=== PATIENT | female | born 2000 | race Caucasian/White ===

== ENCOUNTER 2020-01-30 17:15 | Emergency (ER) | payer OTHER, SELFPAY ==
[2020-01-30 17:29] VITALS: BP 121/65; PULSE 102; RESP 16; TEMP 38.1; O2SAT 99
[2020-01-30 18:09] VITALS: BP 103/62; PULSE 98; RESP 18; O2SAT 98
--- NOTE | 2020-01-30 18:11 | PC.NURSE ---
Pt states she has had abd pain, nausea, vomiting, cough and PURDY x 3 days. Pt is A&Ox4. Pt abd soft, tender and non distended. Pt BSx4. Pt appears in NAD.
--- NOTE | 2020-01-30 18:58 | ED.NAVMDI ---
HPI - Nausea/Vomiting/Diarrhea General Chief complaint: Nausea/Vomiting/Diarrhea Stated complaint: n/v Time Seen by Provider: 01/30/20 17:38 Source: patient Mode of arrival: ambulatory Limitations: no limitations History of Present Illness HPI Narrative: Patient presents with chief complaint of 2 days of cough, congestion, sore throat and a few episodes of vomiting and diarrhea for 2 days. Patient denies having any abdominal pain. Patient denies any blood or mucus in her vomit. Patient denies any other symptoms or concerns. Patient states she is allergic to a smell to beer. Patient states that she did receive a flu shot this year. Patient denies any recent travel out of the country in the past 2 weeks. Patient denies any known exposure to anyone with coronavirus. Related Data Home Medications Medication Instructions Recorded Confirmed cariprazine [Vraylar] mg 01/30/20 Allergies Allergy/AdvReac Type Severity Reaction Status Date / Time oseltamivir Allergy Mild Unknown Verified 01/30/20 17:15 sulfamethoxazole Allergy Mild Unknown Verified 01/30/20 17:15 trimethoprim Allergy Mild Unknown Verified 01/30/20 17:15 sulfamethizole Allergy Unknown possibly Verified 01/30/20 17:15 Review of Systems Review of Systems: Narrative: CONSTITUTIONAL: Reports fever, chills, or sweats. EYES: Denies visual changes, redness, or discharge. ENT: Reports rhinorrhea, congestion, sore throat, or otalgia. CARDIOVASCULAR: Denies chest pain, palpitations, or edema. RESPIRATORY: Reports cough denies dyspnea. GASTROINTESTINAL: Denies abdominal pain, reports nausea, vomiting, and diarrhea. GENITOURINARY: Denies dysuria or hematuria. SKIN: Denies rash or itching. MUSCULOSKELETAL: Denies back pain, joint pain, or myalgia. NEUROLOGIC: Denies headache, numbness, dizziness, or weakness. PSYCHIATRIC: Denies anxiety or depression. PMFSH Social History Social History Smoking status: Never smoker Alcohol intake: never Substance use: never Additional occupation/education comments: Daycare worker Gender identity (if verbalized by the patient): Female Exam Narrative: Exam Narrative: GENERAL: Well-appearing, well-nourished, and in no acute distress. HEAD: Normocephalic, atraumatic. EYES: PERRLA and EOMI. ENT: Nares clear, no rhinorrhea or epistaxis. Mucous membranes moist. Oropharynx without tonsillar hypertrophy exudate or other lesions. Bilateral TMs pearly gracia nonbulging NECK: Supple. No adenopathy or masses. No carotid bruits or JVD CHEST: Clear to auscultation. No respiratory distress. No wheezes rales or rhonchi HEART: Regular rate and rhythm. ABDOMEN: Soft, nontender, nondistended, normal active bowel sounds. EXTREMITIES: Normal range of motion. No edema. SKIN: Warm, dry, no rash. NEURO: No focal deficits. Alert and oriented x3. PSYCH: Normal mood and affect. Course Vital Signs Vital signs: Vital Signs Temperature 100.6 F H 01/30/20 17:29 Pulse Rate 102 H 01/30/20 17:29 Respiratory Rate 16 01/30/20 17:29 Blood Pressure 121/65 01/30/20 17:29 Pulse Oximetry 99 01/30/20 17:29 Temperature 100.6 F H 01/30/20 17:29 Pulse Rate 98 01/30/20 18:09 Respiratory Rate 18 01/30/20 18:09 Blood Pressure 103/62 01/30/20 18:09 Pulse Oximetry 98 01/30/20 18:09 MDM - Nausea/Vomiting/Diarrhea MDM Narrative Medical decision making narrative: Patient tested positive for influenza B. She is not toxic. She is allergic to tamiflu.Declines xofluza. Discussed symptomatic treatment. and protocol to reduce spread. Patient verbalized understanding agreement of plan and denies any other questions or concerns. Differential Diagnosis Differential diagnosis: Likely traveler's diarrhea, gastroenteritis, drug-induced nausea and vomiting, dehydration and other (Influenza, strep pharyngitis, rhinovirus, coronavirus) Lab Data Labs: Influenza A Screen Nega
[2020-01-30 19:31] VITALS: BP 101/75; PULSE 101; RESP 18; O2SAT 99
== END 2020-01-30 19:33 | disposition home or self-care (01) ==
PROVIDERS: Emergency Provider Emergency Medicine; PCP Family Medicine
DX: J10.1 Influenza due to other identified influenza virus with other respiratory manifestations (principal)
CPT/HCPCS: 87081; 87804; 87880; 99283

== ENCOUNTER 2021-11-09 16:47 | Emergency (ER) | payer OTHER, SELFPAY ==
--- NOTE | ~2021-11-09 | US_ITS ---
EXAMINATION: US OB limited DATE: 11/09/2021 17:43 INDICATION: Vaginal bleeding during second trimester TECHNIQUE: Real-time ultrasound of the pelvis was performed. The interpreting radiologist was not pre sent for the study. COMPARISON: None. FINDINGS: There is a single living fetus in vertex presentation. The placenta is anterior. No evident subchori onic hematoma. heart rate is 144 beats per minute (bpm). The amniotic fluid volume is subjectiv soraya normal. IMPRESSION: 1. Single living fetus in vertex presentation with heart rate of 144 bpm. 2. Normal anterior placenta. Reviewed, dictated and finalized at location [facility] IMPRESSION: 1. Single living fetus in vertex presentation with heart rate of 144 bpm . 2. Normal anterior placenta.
[2021-11-09 16:49] VITALS: BP 125/73; PULSE 83; RESP 18; TEMP 36.6; O2SAT 100
--- NOTE | 2021-11-09 17:45 | ED.FEMALEGU ---
HPI - Female Genitourinary General Chief complaint: Vaginal Bleeding Stated complaint: vag bleeding with Time Seen by Provider: 11/09/21 16:59 History of Present Illness HPI Narrative: Patient is a 21-year-old female who is a G1, P0 who is approximately 17 weeks gestation who presents ER with vaginal bleeding. Began 1 hour prior to arrival. Bright red. Soaked through 1-1/2 pads. Unable to feel movement due to gestation age. Has not had any complications thus far. Reports mild abdominal cramping. Related Data Home Medications Medication Instructions Recorded Confirmed cariprazine [Vraylar] mg 01/30/20 Allergies Allergy/AdvReac Type Severity Reaction Status Date / Time oseltamivir Allergy Mild Unknown Verified 11/09/21 17:17 sulfamethoxazole Allergy Mild Unknown Verified 11/09/21 17:17 trimethoprim Allergy Mild Unknown Verified 11/09/21 17:17 sulfamethizole Allergy Unknown possibly Verified 11/09/21 17:17 Review of Systems Review of Systems: All systems reviewed & are unremarkable except as noted in HPI and below Cardiovascular: Cardiovascular: Denies chest pain, Denies rapid heart rate and Denies radiating jaw, neck or arm pain Respiratory: Respiratory: Denies cough, Denies dyspnea and Denies wheezing Gastrointestinal: Gastrointestinal: Reports abdominal pain, Denies diarrhea, Denies nausea and Denies vomiting Genitourinary: Genitourinary: Reports abnormal vaginal bleeding, Denies dysuria, Denies flank pain and Denies vaginal discharge Comments: Denies leakage of fluid Musculoskeletal: Musculoskeletal: Denies back pain, Denies arthralgias and Denies joint swelling [facility] Past Medical History Medical History (Updated 11/09/21 @ 19:36 by Ananth Guerrero MD) Allergic rhinitis Anxiety Bipolar affect, depressed IUD (intrauterine device) in place Sciatica of right side Surgical History Surgical History No history of previous surgery Family History Family History Other Family history of suicide Social History Social History Smoking status: Never smoker Alcohol intake: never Substance use: never Additional occupation/education comments: Daycare worker Gender identity (if verbalized by the patient): Female Exam Narrative: GENERAL: Anxious and tearful-appearing, well-nourished, and in no acute distress. HEAD: Normocephalic, atraumatic. CHEST: Clear to auscultation. No respiratory distress. HEART: Regular rate and rhythm. Normal peripheral pulses. ABDOMEN: Soft, nontender, nondistended. Fundus palpated just below the umbilicus. : Normal external genitalia. Vagina free of significant discharge or any evidence of bleeding. Cervix closed and nonerythematous. No CMT. EXTREMITIES: Normal range of motion. No edema. SKIN: Warm, dry, no rash. NEURO: Alert and oriented x3. PSYCH: Normal mood and affect. Properly anxious. Course Course Emergency Course: Discussed case with Dr. Castillo. Recommends patient contact clinic tomorrow and schedule close follow-up. Patient does not require RhoGam. Discharge home. Vital Signs Vital signs: Vital Signs Temperature 97.8 F 11/09/21 16:49 Pulse Rate 83 11/09/21 16:49 Respiratory Rate 18 11/09/21 16:49 Blood Pressure 125/73 11/09/21 16:49 Pulse Oximetry 100 11/09/21 16:49 Temperature 97.8 F 11/09/21 16:49 Pulse Rate 83 11/09/21 16:49 Respiratory Rate 18 11/09/21 16:49 Blood Pressure 125/73 11/09/21 16:49 Pulse Oximetry 100 11/09/21 16:49 MDM - Female Genitourinary Lab Data Result diagrams: 11/09/21 17:30 11/09/21 17:30 Labs: Lab Results 11/09/21 11/09/21 11/09/21 Range/Units 17:30 17:30 17:30 WBC 10.8 H (4.5-10.0) K/mm3 RBC 4.31 (4.2-5.4) M/mm3 Hgb 13.4 (12.0-15.0) g/dL Hc
[2021-11-09 17:53] LABS: Basophils Percent Auto 0.2 % (0.2-1.2); Eosinophils Absolute Auto 0.1 K/mm3 (0-0.3); Hematocrit 38.6 % (37.0-47.0); Hemoglobin 13.4 g/dL (12.0-15.0); Immature Granulocyte Absolute 0.04 K/mm3 (0.00-0.031); Immature Granulocyte Percent A 0.4 % (0-0.5); Lymphocytes Absolute Auto 1.93 K/mm3 (0.9-3.2); Mean Corpuscular HGB Conc 34.7 g/dl (32-36); Mean Corpuscular Hemoglobin 31.1 pg (26-34); Mean Corpuscular Volume 89.6 fl (80-100); Mean Platelet Volume 9.6 fl (7.4-10.4); Monocytes Absolute Auto 0.7 K/mm3 (0.1-0.6); Monocytes Percent Auto 6.9 % (2.6-8.5); Neutrophils Absolute Auto 7.9 K/mm3 (1.3-6.7); Neutrophils Percent Auto 73.5 % (45.5-73.1); Platelet Count Result 299 k/mm3 (150-375); Red Blood Count 4.31 M/mm3 (4.2-5.4); White Blood Count 10.8 K/mm3 (4.5-10.0)
[2021-11-09 18:07] LABS: Anion Gap 8 mmol/L (8-16); Blood Urea Nitrogen 4 mg/dL (7-17); Calcium 9.2 mg/dL (8.4-10.2); Carbon Dioxide 23 mmol/L (22-30); Chloride 104 mmol/L (98-107); Estimated Glomerular Filt Rate > 60; Glucose 89 mg/dL (65-110); Potassium 3.1 mmol/L (3.4-5.0); Sodium 135 mmol/L (137-145)
[2021-11-09 19:45] VITALS: BP 121/82; PULSE 91; RESP 15; O2SAT 99
== END 2021-11-09 19:45 | disposition home or self-care (01) ==
PROVIDERS: Emergency Provider Emergency Medicine; PCP Family Medicine
DX: O20.9 Hemorrhage in early pregnancy, unspecified (principal); O99.342 Other mental disorders complicating pregnancy, second trimester; F31.9 Bipolar disorder, unspecified; F41.9 Anxiety disorder, unspecified; Z3A.17 17 weeks gestation of pregnancy
CPT/HCPCS: 36415; 76815; 80048; 85025; 85461; 99284

== ENCOUNTER 2022-01-19 03:57 | Observation (INO) | payer OTHER, SELFPAY ==
[2022-01-19 04:16] VITALS: BP 127/67; PULSE 79
--- NOTE | 2022-01-19 04:32 | PC.NURSE ---
0427- called Dr. Castillo- informed of pt admission. pt came in c/o severe upper abdominal pain that started this morning after standing up out of bed. she stated that it felt like her stomach dropped. pt states that she has an anterior placenta and has been on pelvic rest since 20 weeks. no vaginal bleeding, no other concerns. orders received. will obtain labs and call with results.
[2022-01-19] MEDS: ACETAMINOPHEN 500 MG TABLET 1000 MG PO (04:41)
[2022-01-19] MEDS: FAMOTIDINE 20 MG TABLET PO (04:42)
[2022-01-19 04:56] VITALS: TEMP 36.9
--- NOTE | 2022-01-19 04:57 | LDADM ---
This patient, Baljinder Cardoza, was admitted to OB Post 116 on 01/19/22 at 03:57. Plans for labor, pain management and were discussed with patient. Patient/family oriented to hospital policies and general routines including ID bracelet, bed and alarms, visiting hours, pain management, procedures, bathroom and other care routines, personal items, smoking policy, room service/diet and guest tray routines, infant security routines, and visiting hours. Patient/Family are encouraged to report perceived risks to care and to ask questions if they do not understand what they are told or what they should do. See OBIX for further documentation.
[2022-01-19 05:06] LABS: Basophils Percent Auto 0.2 % (0.2-1.2); Eosinophils Absolute Auto 0.1 K/mm3 (0-0.3); Eosinophils Percent Auto 0.6 % (0-4.4); Hematocrit 35.1 % (37.0-47.0); Hemoglobin 11.5 g/dL (12.0-15.0); Immature Granulocyte Percent A 0.7 % (0-0.5); Lymphocytes Absolute Auto 1.43 K/mm3 (0.9-3.2); Lymphocytes Percent Auto 9.7 % (18.3-44.2); Mean Corpuscular HGB Conc 32.8 g/dl (32-36); Mean Corpuscular Hemoglobin 29.9 pg (26-34); Mean Corpuscular Volume 91.4 fl (80-100); Mean Platelet Volume 9.2 fl (7.4-10.4); Monocytes Absolute Auto 0.9 K/mm3 (0.1-0.6); Monocytes Percent Auto 6.1 % (2.6-8.5); Neutrophils Absolute Auto 12.1 K/mm3 (1.3-6.7); Neutrophils Percent Auto 82.7 % (45.5-73.1); Platelet Count Result 298 k/mm3 (150-375); Red Blood Count 3.84 M/mm3 (4.2-5.4); Red Cell Distribution Width 13.4 % (11.5-14.5); White Blood Count 14.7 K/mm3 (4.5-10.0)
[2022-01-19 05:27] LABS: Alanine Aminotransferase 17 U/L (4-35); Albumin Level 3.4 g/dL (3.5-5.1); Alkaline Phosphatase 114 U/L (38-126); Anion Gap 7 mmol/L (8-16); Aspartate Amino Transferase 32 U/L (14-36); Bilirubin,Total 0.4 mg/dL (0.2-1.3); Blood Urea Nitrogen 6 mg/dL (7-17); Calcium 8.7 mg/dL (8.4-10.2); Carbon Dioxide 22 mmol/L (22-30); Chloride 107 mmol/L (98-107); Estimated Glomerular Filt Rate > 60; Glucose 111 mg/dL (65-110); Potassium 3.1 mmol/L (3.4-5.0); Sodium 136 mmol/L (137-145)
--- NOTE | 2022-01-19 05:46 | PC.NURSE ---
0543-Dr. Castillo called in- labs reviewed. pt states that her pain is better at a 4/10 now. order received to d/c pt home with instructions on when to return to labor and delivery. pt has office visit next week and is to keep that appt but to call to make appt sooner if concerns.
--- NOTE | 2022-01-24 21:07 | P.PNOB_ITS ---
OB - Triage/Final Diagnosis Visit Information Comments/Additional reasons for admission: I have assessed the risk for this patient, Baljinder Cardoza, and determined that she would benefit from observation care. Evaluation Laboratory results: Laboratory Tests 01/19/22 01/19/22 04:31 05:00 WBC 14.7 H RBC 3.84 L Hgb 11.5 L Hct 35.1 L MCV 91.4 MCH 29.9 MCHC 32.8 RDW 13.4 Plt Count 298 MPV 9.2 Immature Gran % (Auto) 0.7 H Neut % (Auto) 82.7 H Lymph % (Auto) 9.7 L [place] % (Auto) 6.1 Eos % (Auto) 0.6 Baso % (Auto) 0.2 Lymph # (Auto) 1.43 [place] # (Auto) 0.9 H Eos # (Auto) 0.1 Baso # (Auto) 0.0 Abs Immat Gran (auto) 0.10 H Absolute Neuts (auto) 12.1 H Absolute Nucleated RBC 0.0 Nucleated RBC % 0.0 Sodium 136 L Potassium 3.1 L Chloride 107 Carbon Dioxide 22 Anion Gap 7 L BUN 6 L Creatinine 0.40 L Estim Creat Clear Calc Not Reportable Estimated GFR > 60 Glucose 111 H Calcium 8.7 Total Bilirubin 0.4 AST 32 ALT 17 Alkaline Phosphatase 114 Total Protein 6.0 L Albumin 3.4 L Final Diagnosis (1) Abdominal pain affecting : Code(s): O26.899 - Other specified related conditions, unspecified trimester; R10.9 - Unspecified abdominal pain Status: Acute
== END 2022-01-19 06:11 | disposition home or self-care (01) ==
PROVIDERS: Admitting Provider Obstetrics & Gynecology; PCP Family Medicine; Visit Provider Obstetrics & Gynecology
DX: O26.892 Other specified pregnancy related conditions, second trimester (principal); R10.9 Unspecified abdominal pain; Z3A.26 26 weeks gestation of pregnancy
CPT/HCPCS: 36415; 80053; 85025; A9270; G0378; G0379

== ENCOUNTER 2022-03-13 18:17 | Observation (INO) | payer OTHER, SELFPAY ==
[2022-03-13 18:35] VITALS: BP 136/63; PULSE 100
[2022-03-13] MEDS: DEXTROSE 5%/LACTATED RINGERS 1,000 ML 999 ML IV CONT (18:42)
[2022-03-13 18:46] VITALS: BP 124/80; PULSE 94
[2022-03-13 19:01] VITALS: BP 128/87; PULSE 97
[2022-03-13] MEDS: DEXTROSE 5%/LACTATED RINGERS 1,000 ML 200 ML IV CONT (19:19)
[2022-03-13] MEDS: ONDANSETRON INJ 4 MG/2 ML VIAL IV PUSH ×2 (19:25→21:12)
[2022-03-13] MEDS: METOCLOPRAMIDE HCL INJ 10 MG/2 ML VIAL 5 MG IV PUSH (21:12)
--- NOTE | 2022-03-21 21:11 | PM.OBTRLD ---
OB - Triage/Final Diagnosis Visit Information Comments/Additional reasons for admission: I have assessed the risk for this patient, Baljinder Cardoza, and determined that she would benefit from observation care. Final Diagnosis (1) Nausea & vomiting: Code(s): R11.2 - Nausea with vomiting, unspecified Status: Acute
== END 2022-03-13 22:15 | disposition home or self-care (01) ==
PROVIDERS: Admitting Provider Obstetrics & Gynecology; PCP Family Medicine; Visit Provider Obstetrics & Gynecology
DX: O21.9 Vomiting of pregnancy, unspecified (principal); Z3A.34 34 weeks gestation of pregnancy
CPT/HCPCS: 96361; 96374; 96375; 96376; G0378; G0379; J2405; J2765; J7121

== ENCOUNTER 2022-04-02 17:10 | Observation (INO) | payer OTHER, SELFPAY ==
--- NOTE | 2022-04-02 17:10 | OBADM ---
This patient, Baljinder Cardoza, admitted to the OB room Labor/Delivery/Recovery 106 for observation. Patient/family oriented to hospital policies and general routines including ID bracelet, bed and alarms, visiting hours, pain management, procedures, bathroom and other care routines, personal items, smoking policy, room service/diet, and visiting hours. Patient/Family are encouraged to report perceived risks to care and to ask questions if they do not understand what they are told or what they should do.
[2022-04-02 18:53] VITALS: BMI 38.5
--- NOTE | 2022-04-28 21:26 | PM.OBTRLD ---
OB - Triage/Final Diagnosis Visit Information Comments/Additional reasons for admission: I have assessed the risk for this patient, Baljinder Cardoza, and determined that she would benefit from observation care. Final Diagnosis (1) Amniotic fluid leaking: Code(s): O42.90 - Premature rupture of membranes, unspecified as to length of time between rupture and onset of labor, unspecified weeks of gestation Status: Acute
== END 2022-04-02 18:50 | disposition home or self-care (01) ==
PROVIDERS: Admitting Provider Obstetrics & Gynecology; PCP Family Medicine; Visit Provider Obstetrics & Gynecology
DX: O42.92 Full-term premature rupture of membranes, unspecified as to length of time between rupture and onset of labor (principal); Z3A.37 37 weeks gestation of pregnancy
CPT/HCPCS: G0378; G0379

== ENCOUNTER 2022-04-04 15:17 | Outpatient (CLI) | payer OTHER, SELFPAY ==
[2022-04-04 17:43] VITALS: BP 129/76; PULSE 89
== END 2022-04-04 16:10 | disposition home or self-care (01) ==
LOC: ANHOBOP 16:02 → ANHLDR 16:17
PROVIDERS: PCP Family Medicine; Visit Provider Advanced Practice Midwife
DX: O42.92 Full-term premature rupture of membranes, unspecified as to length of time between rupture and onset of labor (principal); Z3A.37 37 weeks gestation of pregnancy
CPT/HCPCS: 59025; 84112; 99199

== ENCOUNTER 2022-04-07 07:34 | Observation (INO) | payer OTHER, SELFPAY ==
--- NOTE | 2022-04-07 10:05 | OBADM ---
This patient, Baljinder Cardoza, admitted to the OB room Labor/Delivery/Recovery 104 for observation. Patient/family oriented to hospital policies and general routines including ID bracelet, bed and alarms, visiting hours, pain management, procedures, bathroom and other care routines, personal items, smoking policy, room service/diet, and visiting hours. Patient/Family are encouraged to report perceived risks to care and to ask questions if they do not understand what they are told or what they should do.
--- NOTE | 2022-04-10 18:35 | PM.OBTRLD ---
OB - Triage/Final Diagnosis Visit Information Reason for evaluation: threatened labor Comments/Additional reasons for admission: I have assessed the risk for this patient, Baljinder Cardoza, and determined that she would benefit from observation care.
== END 2022-04-07 09:50 | disposition home or self-care (01) ==
PROVIDERS: Admitting Provider Obstetrics & Gynecology; PCP Family Medicine; Visit Provider Obstetrics & Gynecology
DX: O47.9 False labor, unspecified (principal); Z3A.00 Weeks of gestation of pregnancy not specified
CPT/HCPCS: 84112; G0378; G0379

== ENCOUNTER 2022-04-08 09:47 | Outpatient (CLI) | payer OTHER, SELFPAY ==
[2022-04-08] VITALS (7 sets, daily range): BP systolic 99–115; BP diastolic 53–69; PULSE 94–115; TEMP 36.4
[2022-04-08 10:15] LABS: Basophils Percent Auto 0.2 % (0.2-1.2); Eosinophils Absolute Auto 0.1 K/mm3 (0-0.3); Eosinophils Percent Auto 0.5 % (0-4.4); Hematocrit 36.3 % (37.0-47.0); Hemoglobin 11.8 g/dL (12.0-15.0); Immature Granulocyte Absolute 0.07 K/mm3 (0.00-0.031); Immature Granulocyte Percent A 0.5 % (0-0.5); Mean Corpuscular HGB Conc 32.5 g/dl (32-36); Mean Corpuscular Hemoglobin 28.2 pg (26-34); Mean Corpuscular Volume 86.6 fl (80-100); Mean Platelet Volume 9.6 fl (7.4-10.4); Monocytes Absolute Auto 0.8 K/mm3 (0.1-0.6); Monocytes Percent Auto 6.4 % (2.6-8.5); Neutrophils Absolute Auto 10.8 K/mm3 (1.3-6.7); Neutrophils Percent Auto 82.4 % (45.5-73.1); Platelet Count Result 311 k/mm3 (150-375); Red Blood Count 4.19 M/mm3 (4.2-5.4); Red Cell Distribution Width 14.2 % (11.5-14.5)
[2022-04-08 10:32] LABS: Alanine Aminotransferase 13 U/L (6-35); Albumin Level 3.2 g/dL (3.5-5.1); Alkaline Phosphatase 173 U/L (38-126); Anion Gap 9 mmol/L (8-16); Aspartate Amino Transferase 19 U/L (14-36); Bilirubin,Total 0.3 mg/dL (0.2-1.3); Blood Urea Nitrogen 5 mg/dL (7-17); Calcium 8.8 mg/dL (8.4-10.2); Carbon Dioxide 20 mmol/L (22-30); Chloride 111 mmol/L (98-107); Estimated Glomerular Filt Rate > 60; Glucose 101 mg/dL (65-110); Potassium 3.6 mmol/L (3.4-5.0); Sodium 140 mmol/L (137-145); Uric Acid 3.8 mg/dL (2.5-7.5)
[2022-04-08 10:53] LABS: Add Urine Microscopic? YES; Appearance Urine Clear (Clear); Bacteria Urine Trace /hpf; Bilirubin Urine Negative (Negative); Blood Urine Negative (Negative); Color Urine Yellow (Yellow); Glucose Urine UA Negative (Negative); Ketones Urine Negative (Negative); Leukocyte Esterase Ur Trace LEU/UL (NEGATIVE); Mucus Urine Few /lpf; Nitrate Urine Negative (Negative); Protein Urine Negative (Negative); RBC Urine 0-2 /hpf (0-2); Specific Grav Ur 1.025 (1.001-1.035); Squamous Epithelial Cell Urine Moderate /hpf (Few); Urobilinogen Urine 0.2 mg/dL (<2.0); WBC Urine 0-3 /hpf (0-3); pH Urine 6.5 (5.0-9.0)
[2022-04-08 11:02] LABS: Creatinine Urine 141.7 mg/dL
[2022-04-08 18:46] LABS: Total Protein Urine Random 10 mg/dL; Ur Ttl Prot Creatinine Ratio 0.07 mg/mg (0-0.20)
== END 2022-04-08 11:20 | disposition home or self-care (01) ==
LOC: ANHOBOP 09:51 → ANHOBPP 04-13 06:14
PROVIDERS: Advanced Practice Midwife; PCP Family Medicine; Visit Provider Obstetrics & Gynecology
DX: O13.9 Gestational [pregnancy-induced] hypertension without significant proteinuria, unspecified trimester (principal); Z3A.00 Weeks of gestation of pregnancy not specified
CPT/HCPCS: 36415; 59025; 80053; 81001; 82570; 84156; 84550; 85025; 87086; 99199

== ENCOUNTER 2022-04-10 18:43 | Outpatient (CLI) | payer OTHER, SELFPAY ==
[2022-04-10] VITALS (8 sets, daily range): BP systolic 128–145; BP diastolic 76–97; PULSE 97–114
[2022-04-10 19:24] LABS: Basophils Percent Auto 0.2 % (0.2-1.2); Eosinophils Absolute Auto 0.1 K/mm3 (0-0.3); Eosinophils Percent Auto 0.8 % (0-4.4); Hematocrit 36.3 % (37.0-47.0); Hemoglobin 11.7 g/dL (12.0-15.0); Immature Granulocyte Absolute 0.07 K/mm3 (0.00-0.031); Immature Granulocyte Percent A 0.6 % (0-0.5); Lymphocytes Absolute Auto 1.61 K/mm3 (0.9-3.2); Lymphocytes Percent Auto 14.5 % (18.3-44.2); Mean Corpuscular HGB Conc 32.2 g/dl (32-36); Mean Corpuscular Hemoglobin 27.9 pg (26-34); Mean Corpuscular Volume 86.4 fl (80-100); Mean Platelet Volume 9.7 fl (7.4-10.4); Monocytes Absolute Auto 0.9 K/mm3 (0.1-0.6); Monocytes Percent Auto 8.4 % (2.6-8.5); Neutrophils Absolute Auto 8.4 K/mm3 (1.3-6.7); Neutrophils Percent Auto 75.5 % (45.5-73.1); Platelet Count Result 351 k/mm3 (150-375); Red Cell Distribution Width 14.1 % (11.5-14.5); White Blood Count 11.1 K/mm3 (4.5-10.0)
[2022-04-10 19:28] LABS: Appearance Urine Cloudy (Clear); Bilirubin Urine 1+ (Negative); Blood Urine Negative (Negative); Color Urine Yellow (Yellow); Glucose Urine UA Negative (Negative); Ketones Urine Trace mg/dL (Negative); Leukocyte Esterase Ur Trace LEU/UL (NEGATIVE); Nitrate Urine Negative (Negative); Protein Urine 1+ mg/dL (Negative); Specific Grav Ur >= 1.030 (1.001-1.035); pH Urine 6.5 (5.0-9.0)
[2022-04-10 19:34] LABS: Bacteria Urine Trace /hpf; Calcium Oxalate Crystals Urine Present /hpf; Mucus Urine Heavy /lpf; Squamous Epithelial Cell Urine Many /hpf (Few); WBC Urine 21-30 /hpf (0-3)
[2022-04-10 19:35] LABS: Add Urine Microscopic? YES; Alanine Aminotransferase 14 U/L (6-35); Albumin Level 3.2 g/dL (3.5-5.1); Alkaline Phosphatase 192 U/L (38-126); Anion Gap 7 mmol/L (8-16); Aspartate Amino Transferase 19 U/L (14-36); Bilirubin,Total 0.2 mg/dL (0.2-1.3); Blood Urea Nitrogen 5 mg/dL (7-17); Calcium 8.4 mg/dL (8.4-10.2); Carbon Dioxide 20 mmol/L (22-30); Chloride 109 mmol/L (98-107); Estimated Glomerular Filt Rate > 60; Glucose 101 mg/dL (65-110); Potassium 3.5 mmol/L (3.4-5.0); Sodium 136 mmol/L (137-145); Uric Acid 4.1 mg/dL (2.5-7.5)
[2022-04-10 19:37] LABS: Creatinine Urine 236.6 mg/dL; Total Protein Urine Random 7 mg/dL; Ur Ttl Prot Creatinine Ratio 0.03 mg/mg (0-0.20)
[2022-04-14 09:16] LABS: Glucose Point of Care 105 mg/dl (65-105)
== END 2022-04-10 20:40 | disposition home or self-care (01) ==
LOC: ANHOBOP 18:56 → ANHLDR 18:56
PROVIDERS: PCP Family Medicine; Referring Provider Obstetrics & Gynecology; Visit Provider Obstetrics & Gynecology
DX: O13.9 Gestational [pregnancy-induced] hypertension without significant proteinuria, unspecified trimester (principal); Z3A.00 Weeks of gestation of pregnancy not specified
CPT/HCPCS: 36415; 59025; 80053; 81001; 82570; 82948; 84156; 84550; 85025; 87086; 87088; 99199

== ENCOUNTER 2022-04-15 09:50 | Observation (INO) | payer OTHER, SELFPAY ==
--- NOTE | 2022-04-15 09:50 | OBADM ---
This patient, Baljinder Cardoza, admitted to the OB room Labor/Delivery/Recovery 120 for observation. Patient/family oriented to hospital policies and general routines including ID bracelet, bed and alarms, visiting hours, pain management, procedures, bathroom and other care routines, personal items, smoking policy, room service/diet, and visiting hours. Patient/Family are encouraged to report perceived risks to care and to ask questions if they do not understand what they are told or what they should do.
--- NOTE | 2022-04-15 11:55 | PC.NURSE ---
Updated Dr. Castillo on patient SVE. SVE FT/Thick/High and posterior. FHT reactive. Irregular contractions present with irritability noted. VSS. Order given to discharge patient to home; patient to follow-up at scheduled section.
--- NOTE | 2022-04-20 07:24 | PM.OBTRLD ---
OB - Triage/Final Diagnosis Visit Information Comments/Additional reasons for admission: I have assessed the risk for this patient, Baljinder Cardoza, and determined that she would benefit from observation care. Final Diagnosis (1) False labor after 37 completed weeks of gestation: Code(s): O47.1 - False labor at or after 37 completed weeks of gestation Status: Acute
== END 2022-04-15 12:22 | disposition home or self-care (01) ==
PROVIDERS: Admitting Provider Obstetrics & Gynecology; PCP Family Medicine; Visit Provider Obstetrics & Gynecology
DX: O47.1 False labor at or after 37 completed weeks of gestation (principal); Z3A.00 Weeks of gestation of pregnancy not specified
CPT/HCPCS: G0378; G0379

== ENCOUNTER 2022-04-18 12:57 | Outpatient (CLI) | payer OTHER, SELFPAY ==
[2022-04-18 13:24] LABS: Hematocrit 37.8 % (37.0-47.0); Mean Corpuscular HGB Conc 31.7 g/dl (32-36); Mean Corpuscular Hemoglobin 27.4 pg (26-34); Mean Corpuscular Volume 86.3 fl (80-100); Mean Platelet Volume 9.8 fl (7.4-10.4); Platelet Count Result 349 k/mm3 (150-375); Red Blood Count 4.38 M/mm3 (4.2-5.4); Red Cell Distribution Width 14.5 % (11.5-14.5); White Blood Count 11.3 K/mm3 (4.5-10.0)
[2022-04-19 08:38] LABS: Rapid Plasma Reagin Non-Reactive (NonReactive)
== END 2022-04-18 12:58 | disposition home or self-care (01) ==
LOC: ANHOBOP 13:03
PROVIDERS: PCP Family Medicine; Visit Provider Obstetrics & Gynecology
DX: O82 Encounter for cesarean delivery without indication (principal); Z3A.39 39 weeks gestation of pregnancy
CPT/HCPCS: 36415; 85027; 86592; 86850; 86900; 86901

== ENCOUNTER 2022-04-19 05:13 | Inpatient (IN) | payer OTHER, SELFPAY ==
[2022-04-19] VITALS (53 sets, daily range): BP systolic 82–115; BP diastolic 37–90; PULSE 57–120; RESP 12–18; TEMP 36.1–36.9; O2SAT 96–100; BMI 39.2
--- OUTSIDE RECORDS SUMMARY | 2022-04-19 05:17 | XMS_ITS | Encounter Summary ---
:2000 Author Care Team Providers Name Role Phone Lesley Morales MD Primary Care Provider [phone] Reason for Visit None recorded. Assessment and Plan 1. Maternal obesity complicating pregna ncy, childbirth and the puerperium, antepartum ? non-stress test Discussion Note: None recorded.Patient educational handouts: No information available. Plan of Care Reminders Provider Appointments Surg Post Op 04/27/2022 10:45AM Jenna Castillo MD Lab None recorded. ? ? Referral None recorded. ? ? Procedures None recorded. ? ? Surgeries None recorded. ? ? Imaging Non-stress Test 04/15/2022 [place] Medications Name Start Date ? ? ? Medications Administered None recorded. Vitals None recorded. Results Lab Results None recorded. Allergies Code Code System Name Reaction Severity Onset 3982063 RxNorm Latex ? ? ? Septra ? ? ? 744218 RxNorm Tamiflu ? ? ? Problems Name Status Onset Date Source ? Active 10/11/2021 ? Obesity Active ? ? Marginal Insertion of Umbilical Cord Active ? ? Large for Gestation Age Fetus Active ? ? Procedures Date Name Performed by ? 03/23/2022 US, Obstetric, Follow-up [place] [address] [place] [address] ([address]) 04/01/2022 Non-stress Test [facility]
--- OUTSIDE RECORDS SUMMARY | 2022-04-19 05:17 | XMS_ITS | Encounter Summary ---
:2000 Author Care Team Providers Name Role Phone Lesley Morales MD Primary Care Provider [phone] Reason for Visit OB visit Assessment and Plan 1. Routine care 2. Large for gestation age fetus 3. Painful uterine contractions Discussion Note: None recorded.Patient educational handouts: No information available. Plan of Care Reminders Provider Appointments Surg Post Op 04/27/2022 10:45AM Jenna Castillo MD Lab None recorded. ? ? Referral None recorded. ? ? Procedures None recorded. ? ? Surgeries None recorded. ? ? Imaging None recorded. ? ? Medications Name Start Date ? ? ? Medications Administered None recorded. Vitals Height Weight BMI Blood Pressure 5 ft 5 in 242 lbs 40.3 kg/m2 125/85 mm[Hg] Results Lab Results None recorded. Allergies Code Code System Name Reaction Severity Onset 7260998 RxNorm Latex ? ? ? Septra ? ? ? 066981 RxNorm Tamiflu ? ? ? Problems Name Status Onset Date Source ? Active 10/11/2021 ? Obesity Active ? ? Marginal Insertion of Umbilical Cord Active ? ? Large for Gestation Age Fetus Active ? ? Procedures Date Name Performed by ? 03/23/2022 US, Obstetric, Follow-up [place] [address] [place] [address] ([address])
--- OUTSIDE RECORDS SUMMARY | 2022-04-19 05:17 | XMS_ITS | Encounter Summary ---
:2000 Author Care Team Providers Name Role Phone Lesley Morales MD Primary Care Provider [phone] Reason for Visit OB problem f/u l&D Assessment and Plan 1. Large for gestation age fetus 2. Lightheadedness Discussion Note: None recorded.Patient educational handouts: No [...] BMI Blood Pressure 5 ft 5 in 238 lbs 39.6 kg/m2 132/80 mm[Hg] Results Lab Results None recorded. Allergies Code Code System Name Reaction Severity Onset 4988614 RxNorm Latex ? ? ? Septra ? ? ? 403489 RxNorm Tamiflu ? ? ? Problems Name Status Onset Date Source ? Active 10/11/2021 ? Obesity Active ? ? Marginal Insertion of Umbilical Cord Active ? ? Large for Gestation Age Fetus Active ? ? Procedures Date Name Performed by ? 03/23/2022 US, Obstetric, Follow-up [place] [address] [place] [address] ([address]) 04/01/2022
--- OUTSIDE RECORDS SUMMARY | 2022-04-19 05:17 | XMS_ITS ---
:2000 Author Care Team Providers Name Role Phone SANDOVAL ACUNA MD Primary Care Provider [phone] Allergies Code Code System Name Reaction Severity Status Onset 3984298 RxNorm Latex ? ? Active ? Septra ? ? Active ? 923379 RxNorm Tamiflu ? ? Active ? 256087 RxNorm Cipro ? ? Deactivated ? Medications Name Status Start Date Stop Date ? ? nitrofurantoin monohydrate/macrocrystals 100 mg capsule Complete d ? 04/08/2022 Active ? Not available Problems Name Status Onset Date Source ? Active 10/11/2021 ? Obesity Active ? ? Marginal Insertion of Umbilical Cord Active ? ? Large for Gestation Age Fetus Active ? ? Procedures Date Name Performed by ? 10/11/2021 US, Obstetric, Nuchal Translucency [facility]yan [address] [place] [address] ([address]) 12/08/2021 US, Obstetric, 2Nd or 3Rd Trimester Petra rodriguez [address] [place] [address] ([address]) 12/08/2021 US, Obstetric, Transvaginal [facility] [address] [place] [address] ([address]) 12/29/2021 US, Obstetric, Follow-up [place] [address] [place] [address] ([address]) 01/27/2022 US, Obstetric
--- OUTSIDE RECORDS SUMMARY | 2022-04-19 05:17 | XMS_ITS ---
:2000 Author Care Team Providers Name Role Phone SANDOVAL ACUNA MD Primary Care Provider [phone] Allergies Notes: ceptra, tamaflu Medications Name Status Start Date Stop Date ? ? hydroxyzine pamoate 25 mg capsule Unknown ? Not available lithium carbonate 300 mg capsule Unknown ? Not available Problems Name Status Onset Date Source ? Generalized Headache Active ? Encounter Bruise of Head Active ? Encounter Procedures Notes: none Results Lab Results None recorded. Past Encounters None recorded. Social History Tobacco Smoking Status Never Smoker Vaccine List Notes: up to date Plan of Care Reminders Provider Appointments None recorded. ? ? Lab None recorded. ? ? Referral None recorded. ? ? Procedures None recorded. ? ? Surgeries None recorded. ? ? Imaging None recorded. ? ? Vitals Height Weight BMI Blood Pressure 5 ft 4 in 145 lbs 24.9 kg/m2 129/77 mm[Hg]
--- OUTSIDE RECORDS SUMMARY | 2022-04-19 05:18 | XMS_ITS | Encounter Summary ---
:2000 Author Care Team Providers Name Role Phone Lesley Morales MD Primary Care Provider [phone] Reason for Visit None recorded. Assessment and Plan 1. Maternal obesity complicating pregna ncy, childbirth and the puerperium, antepartum ? US, obstetric, follow-up Discussion Note: None recorded.Patient educational handouts: No information available. Plan of Care Reminders Provider Appointments Surg Post Op 04/27/2022 10:45AM Jenna Castillo MD Lab None recorded. ? ? Referral None recorded. ? ? Procedures None recorded. ? ? Surgeries None recorded. ? ? Imaging US, Obstetric, 01/27/2022 [place] Follow-up Medications Name Start Date ? ? ? Medications Administered None recorded. Vitals None recorded. Results Lab Results None recorded. Allergies Code Code System Name Reaction Severity Onset 1432998 RxNorm Latex ? ? ? Septra ? ? ? 255019 RxNorm Tamiflu ? ? ? Problems Name Status Onset Date Source ? Active 10/11/2021 ? Obesity Active ? ? Marginal Insertion of Umbilical Cord Active ? ? Large for Gestation Age Fetus Active ? ? Procedures Date Name Performed by ? 01/27/2022 US, Obstetric, Follow-up [place] [address] [place] [address] ([address]
--- OUTSIDE RECORDS SUMMARY | 2022-04-19 05:18 | XMS_ITS | Encounter Summary ---
:2000 Author Care Team Providers Name Role Phone Lesley Morales MD Primary Care Provider [phone] Reason for Visit OB visit Assessment and Plan 1. Large for gestation age fetus 2. Marginal insertion of umbilical cord 3. Obesity Discussion Note: None recorded.Patient educational handouts: No [...] BMI Blood Pressure 5 ft 5 in 230 lbs 38.3 kg/m2 127/75 mm[Hg] Results Lab Results None recorded. Allergies Code Code System Name Reaction Severity Onset 4305843 RxNorm Latex ? ? ? Septra ? ? ? 088718 RxNorm Tamiflu ? ? ? Problems Name Status Onset Date Source ? Active 10/11/2021 ? Obesity Active ? ? Marginal Insertion of Umbilical Cord Active ? ? Large for Gestation Age Fetus Active ? ? Procedures Date Name Performed by ? 01/27/2022 US, Obstetric, Follow-up [place] [address] [place] [address] ([address])
--- OUTSIDE RECORDS SUMMARY | 2022-04-19 05:18 | XMS_ITS | Encounter Summary ---
:2000 Author Care Team Providers Name Role Phone Lesley Morales MD Primary Care Provider [phone] Reason for Visit OB visit Assessment and Plan Assessment Note Patient is ___weeks . Discussed plan. 1. Routine care Discussion Note: None recorded.Patient educational handouts: No [...] BMI Blood Pressure 5 ft 5 in 235 lbs 39.1 kg/m2 131/81 mm[Hg] Results Lab Results None recorded. Allergies Code Code System Name Reaction Severity Onset 9105953 RxNorm Latex ? ? ? Septra ? ? ? 976757 RxNorm Tamiflu ? ? ? Problems Name Status Onset Date Source ? Active 10/11/2021 ? Obesity Active ? ? Marginal Insertion of Umbilical Cord Active ? ? Large for Gestation Age Fetus Active ? ? Procedures Date Name Performed by ? 02/24/2022 US, Obstetric, Follow-up [place] [address] [place] [address] ([place]
--- OUTSIDE RECORDS SUMMARY | 2022-04-19 05:18 | XMS_ITS | Encounter Summary ---
:2000 Author Care Team Providers Name Role Phone Lesley Morales MD Primary Care Provider [phone] Reason for Visit None recorded. Assessment and Plan 1. Body mass index 30+ - obesity ? non-stress test Discussion Note: None recorded.Patient educational handouts: No information available. Plan of Care Reminders Provider Appointments Surg Post Op 04/27/2022 10:45AM Jenna Castillo MD Lab None recorded. ? ? Referral None recorded. ? ? Procedures None recorded. ? ? Surgeries None recorded. ? ? Imaging Non-stress Test 04/01/2022 [place] Medications Name Start Date ? ? ? Medications Administered None recorded. Vitals None recorded. Results Lab Results None recorded. Allergies Code Code System Name Reaction Severity Onset 0170728 RxNorm Latex ? ? ? Septra ? ? ? 805227 RxNorm Tamiflu ? ? ? Problems Name Status Onset Date Source ? Active 10/11/2021 ? Obesity Active ? ? Marginal Insertion of Umbilical Cord Active ? ? Large for Gestation Age Fetus Active ? ? Procedures Date Name Performed by ? 03/23/2022 US, Obstetric, Follow-up [place] [address] [place] [address] ([address]) 04/01/2022 Non-stress Test [place] [address] [place]
--- OUTSIDE RECORDS SUMMARY | 2022-04-19 05:18 | XMS_ITS | Encounter Summary ---
:2000 Author Care Team Providers Name Role Phone Lesley Morales MD Primary Care Provider [phone] Reason for Visit None recorded. Assessment and Plan 1. condition affecting obstetrica l care of mother ? US, obstetric, biophysical profile Discussion Note: None recorded.Patient educational handouts: No information available. Plan of Care Reminders Provider Appointments Surg Post Op 04/27/2022 Jenna murray MD 10:45AM Lab None recorded. ? ? Referral None recorded. ? ? Procedures None recorded. ? ? Surgeries None recorded. ? ? Imaging US, Obstetric, Biophysical 04/01/2022 [place] Profile Medications Name Start Date ? ? ? Medications Administered None recorded. Vitals None recorded. Results Lab Results None recorded. Allergies Code Code System Name Reaction Severity Onset 9515436 RxNorm Latex ? ? ? Septra ? ? ? 056961 RxNorm Tamiflu ? ? ? Problems Name Status Onset Date Source ? Active 10/11/2021 ? Obesity Active ? ? Marginal Insertion of Umbilical Cord Active ? ? Large for Gestation Age Fetus Active ? ? Procedures Date Name Performed by ? 03/23/2022 US, Obstetric, Follow-up [place] [address] [place] [address] ([address]) 04/01/2022 Non
--- OUTSIDE RECORDS SUMMARY | 2022-04-19 05:18 | XMS_ITS | Encounter Summary ---
:1999 Author Care Team Providers Name Role Phone Lesley Morales MD Primary Care Provider [phone] Reason for Visit None recorded. Assessment and [...] None recorded. ? ? Imaging Non-stress Test 04/08/2022 [place] Medications Name Start Date ? ? ? Medications Administered None recorded. Vitals None recorded. Results Lab Results None recorded. Allergies Code Code System Name Reaction Severity Onset 2498510 RxNorm Latex ? ? ? Septra ? ? ? 591964 RxNorm Tamiflu ? ? ? Problems Name Status Onset Date Source ? Active 10/11/2021 ? Obesity Active ? ? Marginal Insertion of Umbilical Cord Active ? ? Large for Gestation Age Fetus Active ? ? Procedures Date Name Performed by ? 03/23/2022 US, Obstetric, Follow-up [facility] [address] [place] [address] ([address]) 04/01/2022 Non-stress Test [place] [facility]
--- OUTSIDE RECORDS SUMMARY | 2022-04-19 05:18 | XMS_ITS | Encounter Summary ---
:2000 Author Care Team Providers Name Role Phone Lesley Morales MD Primary Care Provider [phone] Reason for Visit OB visit Assessment and Plan 1. Large for gestation age fetus ? section (SURG) Discussion Note: None recorded.Patient educational handouts: No information available. Plan of Care Reminders Provider Appointments Surg Post Op 04/27/2022 Jenna murray MD 10:45AM Lab None recorded. ? ? Referral None recorded. ? ? Procedures None recorded. ? ? Surgeries Section (SURG) 04/19/2022 [facility] None recorded. ? ? Medications Name Start Date ? ? ? Medications Administered None recorded. Vitals Height Weight BMI Blood Pressure 5 ft 5 in 237 lbs 39.4 kg/m2 128/86 mm[Hg] Results Lab Results None recorded. Allergies Code Code System Name Reaction Severity Onset [id number] RxNorm Latex ? ? ? Septra ? ? ? 811200 RxNorm Tamiflu ? ? ? Problems Name Status Onset Date Source ? Active 10/11/2021 ? Obesity Active ? ? Marginal Insertion of Umbilical Cord Active ? ? Large for Gestation Age Fetus Active ? ? Procedures Date Name Performed by ? 02/24/2022 US, Obstetric, Follow-up [place] [address] [place] [address] (Wo
--- OUTSIDE RECORDS SUMMARY | 2022-04-19 05:18 | XMS_ITS | Encounter Summary ---
:2000 Author Care Team Providers Name Role Phone Lesley Morales MD Primary Care Provider [phone] Reason for Visit OB visit OB [id number] EDC 04/23/2022 LMP 07/17/2021 Assessment and Plan Assessment Note Patient is _36__weeks . Discuss ed plan. 1. Routine care Discussion Note: None [...] BMI Blood Pressure 5 ft 5 in 239 lbs 39.8 kg/m2 112/70 mm[Hg] Results Lab Results None recorded. Allergies Code Code System Name Reaction Severity Onset 1185349 RxNorm Latex ? ? ? Septra ? ? ? 101629 RxNorm Tamiflu ? ? ? Problems Name Status Onset Date Source ? Active 10/11/2021 ? Obesity Active ? ? Marginal Insertion of Umbilical Cord Active ? ? Large for Gestation Age Fetus Active ? ? Procedures Date Name Performed by ? 03/23/2022 US, Obstetric, Follow-up [place] [address] [place] [address]
--- OUTSIDE RECORDS SUMMARY | 2022-04-19 05:18 | XMS_ITS | Encounter Summary ---
:2000 Author Care Team Providers Name Role Phone Lesley Morales MD Primary Care Provider [phone] Reason for Visit OB problem OB PROBLEM [id number] EDC 04/23/2022 LMP 07/17 PATIENT IS HAVING PAIN AND BURNING WITH URINATION Assessment and Plan 1. Urinary symptoms ? Macrobid 100 mg capsule Discussion Note: None recorded.Patient educational handouts: No [...] ft 5 in 238 lbs 39.6 kg/m2 124/79 mm[Hg] Results Lab Results None recorded. Allergies Code Code System Name Reaction Severity Onset 0895054 RxNorm Latex ? ? ? Septra ? ? ? 267889 RxNorm Tamiflu ? ? ? Problems Name Status Onset Date Source ? Active 10/11/2021 ? Obesity Active ? ? Marginal Insertion of Umbilical Cord Active ? ? Large for Gestation Age Fetus Active ? ? Procedures Date Name Performed by ? 03/23/2022 US, Obstetric, Follow-up [place] [address] [place] [address]
--- OUTSIDE RECORDS SUMMARY | 2022-04-19 05:18 | XMS_ITS | Encounter Summary ---
:1999 Author Care Team Providers Name Role Phone Lesley Morales MD Primary Care Provider [phone] Reason for Visit OB visit OB [id number] EDC 04/23/2022 LMP 07/17/2021 Assessment and Plan Assessment Note Patient is 37___weeks . Discuss ed plan. 1. Routine care [...] ft 5 in 239 lbs 39.8 kg/m2 133/95 mm[Hg] Results Lab Results None recorded. Allergies Code Code System Name Reaction Severity Onset 7998407 RxNorm Latex ? ? ? Septra ? ? ? 447351 RxNorm Tamiflu ? ? ? Problems Name Status Onset Date Source ? Active 10/11/2021 ? Obesity Active ? ? Marginal Insertion of Umbilical Cord Active ? ? Large for Gestation Age Fetus Active ? ? Procedures Date Name Performed by ? 03/23/2022 US, Obstetric, Follow-up [place] [address] [place] [address]
--- OUTSIDE RECORDS SUMMARY | 2022-04-19 05:18 | XMS_ITS | Encounter Summary ---
:1999 Author Care Team Providers Name Role Phone Lesley Morales MD Primary Care Provider [phone] Reason for Visit OB visit Assessment and [...] ft 5 in 235 lbs 39.1 kg/m2 133/76 mm[Hg] Results Lab Results None recorded. Allergies Code Code System Name Reaction Severity Onset 3742862 RxNorm Latex ? ? ? Septra ? ? ? 313608 RxNorm Tamiflu ? ? ? Problems Name Status Onset Date Source ? Active 10/11/2021 ? Obesity Active ? ? Marginal Insertion of Umbilical Cord Active ? ? Large for Gestation Age Fetus Active ? ? Procedures Date Name Performed by ? 01/27/2022 US, Obstetric, Follow-up [facility] [address] [place] [address] ([facility]
--- OUTSIDE RECORDS SUMMARY | 2022-04-19 05:18 | XMS_ITS | Encounter Summary ---
:2000 Author Care Team Providers Name Role Phone Lesley Morales MD Primary Care Provider [phone] Reason for Visit None recorded. Assessment and Plan 1. condition affecting obstetrica l care of mother ? US, obstetric, follow-up Discussion Note: None recorded.Patient educational handouts: No information available. Plan of Care Reminders Provider Appointments Surg Post Op 04/27/2022 10:45AM Jenna Castillo MD Lab None recorded. ? ? Referral None recorded. ? ? Procedures None recorded. ? ? Surgeries None recorded. ? ? Imaging US, Obstetric, 02/24/2022 [place] Follow-up Medications Name Start Date ? ? ? Medications Administered None recorded. Vitals None recorded. Results Lab Results None recorded. Allergies Code Code System Name Reaction Severity Onset 2812871 RxNorm Latex ? ? ? Septra ? ? ? 834827 RxNorm Tamiflu ? ? ? Problems Name Status Onset Date Source ? Active 10/11/2021 ? Obesity Active ? ? Marginal Insertion of Umbilical Cord Active ? ? Large for Gestation Age Fetus Active ? ? Procedures Date Name Performed by ? 01/27/2022 US, Obstetric, Follow-up [facility] [place] [address] [place] [address] ([address]) 02/24/2022 US, Obstetric, Follow-up
--- NOTE | 2022-04-19 05:55 | LDADM ---
This patient, Baljinder Cardoza, was admitted to Labor/Delivery/Recovery 120 on 04/19/22 at 05:13. Plans for labor, pain management and were discussed with patient. Patient/family oriented to hospital policies and general routines including ID bracelet, bed and alarms, visiting hours, pain management, procedures, bathroom and other care routines, personal items, smoking policy, room service/diet and guest tray routines, security routines, and visiting hours. Patient/Family are encouraged to report perceived risks to care and to ask questions if they do not understand what they are told or what they should do. See OBIX for further documentation.
[2022-04-19] MEDS: LACTATED RINGERS 1,000 ML 125 ML IV CONT ×2 (06:30→07:25)
--- NOTE | 2022-04-19 06:59 | P.PNAN_ITS ---
Anes - Initial Pre Proc Eval Procedure: Operation Date: 04/19/22 07:30 Proposed Procedures p Section - Jenna Castillo MD Date/Time: 04/19/22 06:59 Surgeon: Jenna Castillo MD Pre Op Diagnosis: c/s Patient Data Age: 21 Gender: F Height: 1.65 m Weight: 107 kg Last Vital Signs Pulse 114 H 04/19/22 06:00 BP 115/76 04/19/22 06:00 O2 Del Method Room Air 04/19/22 06:12 Allergies Allergy/AdvReac Type Severity Reaction Status Date / Time oseltamivir Allergy Severe Hives Verified 03/23/22 12:38 sulfamethoxazole Allergy Mild Hives Verified 03/23/22 12:40 trimethoprim Allergy Mild Hives Verified 03/23/22 12:40 sulfamethizole Allergy Unknown possibly Verified 11/09/21 17:17 latex Allergy Rash Verified 03/23/22 12:40 Home Medications Medication Instructions Recorded Confirmed Type prenat.vits,kasia,mqh-nfrh-plaua 1 tablet PO HS 03/23/22 04/15/22 History Patient hx anesthesia problems: none Family hx anesthesia problems: none Results Review: All pre-operative results and documents have been reviewed as part of the pre- operative evaluation. FOR[facility]LY [facility] Past Medical History Medical History (Updated 03/21/22 @ 21:11 by Jenna Castillo MD) Allergic rhinitis Anxiety Bipolar affect, depressed IUD (intrauterine device) in place Sciatica of right side Surgical History Surgical History No history of previous surgery Family History Family History Other Family history of suicide Social History Social History Smoking status: Never smoker Alcohol intake: never Substance use: never Additional occupation/education comments: Daycare worker Gender identity (if verbalized by the patient): Female Spiritual care concerns: No Anes - Eval Final PreProcedure Day of Procedure 04/19/22 06:59 Patient weight: obese Heart: regular rate and rhythm Lungs: clear to auscultation Airway: Mallampati scale class III Neurological: alert and oriented ASA classification: II Emergent: no Anesthetic plan: proceed Anesthesia type and monitoring: regional spinal and standard monitoring Results Review: All pre-operative results and documents have been reviewed as part of the pre- operative evaluation. Informed Consent: The patient's anesthetic plan and its attendant risks and benefits were discussed with the patient/family/POA. Questions were solicited and answers provided to the satisfaction of the patient/family/POA.
--- NOTE | 2022-04-19 07:19 | PM.IMHP ---
H&P: HPI History of Present Illness Date/Time: 04/19/22 07:19 Chief Complaint: primary CS Narrative: Baljinder is a 21yo G1 at 39.3 for primary CS for macrosomia. >96% last several US. otherwise complicated by only obesity. Review of Systems Review of Systems: All systems reviewed & are unremarkable except as noted in HPI and below PMFSH Past Medical History Medical History (Updated 03/21/22 @ 21:11 by Jenna Castillo MD) Allergic rhinitis Anxiety Bipolar affect, depressed IUD (intrauterine device) in place Sciatica of right side Surgical History Surgical History No history of previous surgery Family History Family History Other Family history of suicide Social History Social History Smoking status: Never smoker Alcohol intake: never Substance use: never Additional occupation/education comments: Daycare worker Gender identity (if verbalized by the patient): Female Spiritual care concerns: No Meds Home Medications and Allergies Home Medications Medication Instructions Recorded Confirmed Type prenat.vits,kasia,aqu-ygqu-wjkgf 1 tablet PO HS 03/23/22 04/15/22 History Allergies Allergy/AdvReac Type Severity Reaction Status Date / Time oseltamivir Allergy Severe Hives Verified 03/23/22 12:38 sulfamethoxazole Allergy Mild Hives Verified 03/23/22 12:40 trimethoprim Allergy Mild Hives Verified 03/23/22 12:40 sulfamethizole Allergy Unknown possibly Verified 11/09/21 17:17 latex Allergy Rash Verified 03/23/22 12:40 Vital Signs Vital Signs - 24 hr 04/19/22 05:49 04/19/22 06:00 04/19/22 06:12 Pulse Rate 120 H 114 H Blood Pressure 107/65 115/76 Oxygen Delivery Room Air Exam Const: General: no acute distress Resp: Effort & Inspection: normal respiratory effort Auscultation: clear to auscultation bilaterally Cardio: Rate: regular rate Rhythm: regular rhythm GI: GI Palp: Yes Soft to palpation Extrem: General: normal to inspection Assessment and Plan Additional Plan Plan primary CS Discussed RBA, pt consented, all questions answered. will proceed.
--- NOTE | 2022-04-19 07:21 | WPDHPUPDATE1 ---
History and Physical Update Update Date/Time: 04/19/22 07:21 History and Physical has been reviewed, including an updated exam of the patient. There are NO changes in the patient's condition. Risks, benefits, and alternatives have been discussed and questions answered. Patient agrees to proceed with procedure.
--- NOTE | 2022-04-19 08:22 | P.PCNOB_ITS ---
OB - Delivery Note Procedure Procedure: Procedures Operation Date: 04/19/22 07:30 <No data on this case meets the specified criteria> Primary Low Transverse section Events: Macrosomia Route of delivery: Specimen: Yes (placenta) Quantitative Blood Loss (ml): 440 Anesthesia type: Epidural Disposition: Floor Complications: none Narrative: The patient was taken to the OR and had her epidural anesthesia dosed a dequately. She was placed in dorsal supine position with left lateral tilt. SCDs and villarreal had been placed. She was prepped and draped in the normal sterile fashion. A Pfannensteil skin incision was made and carried through to the underlying layer of fascia. The fascia was incised in the midline and then extended laterally using Nunez scissors. The muscles were in the midline and th e peritoneum was entered bluntly. The peritoneal incision was extended inferiorly and superiorly with care to avoid the bladder. The bladder blade was then inserted, the vesicouterine peritoneum was grasped, incised with Metzenbaum scissors, and a bladder flap created. The bladder blade was reinserted. A low transverse uterine incision was made with a scalpel and extended bluntly. AROM was performed and fluid was noted to be clear. The head was delivered, followed by the remainder of the baby. The baby's oropharynx was suctioned. After 30 seconds, the cord was clamped and cut and the was handed off. Cord blood was obtained and the placenta was then removed manually. The uterus was exteriorized. A moist lap sponge was used to curette the endometrium. The uterine incision was then closed with one layer of 0-Vicryl in a running, locking fashion. Good hemostasis was noted. The posterior cul de sac was irrigated with normal saline and cleared of all clot and debris. The uterus was returned to the abdomen. Both lateral gutters were then irrigated. The rectus muscles were inspected and found to be hemostatic. The fascia was reapproximated using 0-Vicryl in running fashion. The subcutaneous tissue was irrigated with normal saline and made hemostatic with Bovie electrocautery. The subcutaneous tissue was reapproximated with a layer of running 2-0 plain gut. The skin was then closed with absorbable cadence. Steri strips and a bandage were applied. The uterus was evacuated. The patient tolerated the procedure very well. All counts were correct. She was taken to the recovery room in good condition. Baby Date of : 04/19/22 Time of : 07:56 Weeks of gestation at delivery: 39 gender: Male Weight (pounds): 8 Weight (ounces): 9 presentation: vertex Placenta delivery description: Manual Removal Cord Vessel Description: 3 Vessels, Nuchal Cord and Delayed Cord Clamping score one minute: 8 score five minutes: 9
[2022-04-19] MEDS: OXYTOCIN 30 UNITS/NS 500 ML 30 UNITS/500 ML BAG 125 UNITS IV CONT (09:20)
--- NOTE | 2022-04-19 10:35 | PC.NURSE ---
Patient transferred to post room #282 via stretcher. Support person present. Oriented to unit, room, information board, rooming in, admission packet and security measures. Patient verbalizes understanding.
[2022-04-19] MEDS: LORATADINE 10 MG TABLET PO (11:09)
[2022-04-19] MEDS: KETOROLAC 30 MG/ML VIAL (*BKC) IV PUSH (11:09)
[2022-04-19] MEDS: DOCUSATE SODIUM 100 MG CAPSULE PO (13:48)
[2022-04-19] MEDS: HYDROcodone/acetaminophen (*CRX) 5-325 MG TABLET 1 TAB PO ×2 (13:48→19:27)
[2022-04-19] MEDS: DEXTROSE 5%/0.45% SOD CHL 1,000 ML 125 ML IV CONT (13:48)
--- NOTE | 2022-04-19 14:06 | PC.NURSE ---
[id number] Introductions were made, then consulted with patient to assess needs related to . Mother led the conversation with her experience feeding her so far. Mother works well with her with encouragement and education. Encouraged understanding of the benefits of skin to skin (unwrapping and placing vertically on her chest), responsive feeding and how to watch for early feeding signs, frequency of feeding on demand about every 8-12 times in 24 hours (every 2-3 hours), milk production, duration of feeding, signs of adequate intake/output and how to record on the feeding sheet. Reviewed positioning and ear, shoulder, hip alignment, supporting the breast, asymmetrical latch (off-center), and leading with the chin with a big open side gape. Infant latched optimally to the right breast in football position. Education given to mother of how to visualize suck/swallow ratios and drinking at the breast. was able to maintain latch without discomfort to mother for about 5 min, then detached. placed vertically between mother's breast, then burped and rested content. Nipple care reviewed with optimal latch and good positioning. Reviewed good handwashing when or touching the breast/nipples to prevent infection. Mother voiced understanding of responsive feedings, stimulating with skin to skin, hand expressed colostrum, touch, talking to infant to encourage if it has been 2 -3 hours since the start of the last , to call if infant does not latch or there is discomfort with . Reported to the primary RN.
[2022-04-19] MEDS: ONDANSETRON INJ 4 MG/2 ML VIAL IV PUSH (15:04)
[2022-04-19] MEDS: LANOLIN (LANSINOH) 7.5 GM CREAM 1 APPLIC TOPICAL (19:25)
[2022-04-19] MEDS: IBUPROFEN 600 MG TABLET PO (19:27)
[2022-04-19] MEDS: SIMETHICONE 80 MG TAB.CHEW PO (19:27)
[2022-04-20] MEDS: HYDROcodone/acetaminophen (*CRX) 5-325 MG TABLET 1 TAB PO ×4 (01:30→21:08)
[2022-04-20] MEDS: IBUPROFEN 600 MG TABLET PO ×4 (01:30→21:09)
[2022-04-20] MEDS: SIMETHICONE 80 MG TAB.CHEW PO ×5 (01:34→21:08)
[2022-04-20 03:45] VITALS: BP 114/71; PULSE 85; RESP 18; TEMP 36.7
[2022-04-20 04:55] LABS: Basophils Percent Auto 0.3 % (0.2-1.2); Eosinophils Absolute Auto 0.1 K/mm3 (0-0.3); Eosinophils Percent Auto 0.6 % (0-4.4); Hematocrit 35.1 % (37.0-47.0); Immature Granulocyte Absolute 0.06 K/mm3 (0.00-0.031); Immature Granulocyte Percent A 0.5 % (0-0.5); Lymphocytes Absolute Auto 1.36 K/mm3 (0.9-3.2); Lymphocytes Percent Auto 10.8 % (18.3-44.2); Mean Corpuscular HGB Conc 31.3 g/dl (32-36); Mean Corpuscular Hemoglobin 27.6 pg (26-34); Mean Corpuscular Volume 88.2 fl (80-100); Mean Platelet Volume 10.3 fl (7.4-10.4); Neutrophils Percent Auto 79.8 % (45.5-73.1); Platelet Count Result 315 k/mm3 (150-375); Red Blood Count 3.98 M/mm3 (4.2-5.4); Red Cell Distribution Width 14.7 % (11.5-14.5); White Blood Count 12.6 K/mm3 (4.5-10.0)
--- NOTE | 2022-04-20 07:27 | PM.OBPNVD ---
OB - PN: Subj Subjective Date/time seen: 04/20/22 07:27 Patient comments: no complaints baby status: NICU feeding status: pumping and storing Narrative: POD 1 from primary CS. Doing well. Normal lochia. Eating, ambulating, villarreal out. OB - PN: Obj Data Labs CBC & Chem 7: 04/20/22 03:22 Labs: Laboratory Results - last 24 hr 04/20/22 03:22 WBC 12.6 H RBC 3.98 L Hgb 11.0 L Hct 35.1 L MCV 88.2 MCH 27.6 MCHC 31.3 L RDW 14.7 H Plt Count 315 MPV 10.3 Immature Gran % (Auto) 0.5 Neut % (Auto) 79.8 H Lymph % (Auto) 10.8 L [place] % (Auto) 8.0 Eos % (Auto) 0.6 Baso % (Auto) 0.3 Lymph # (Auto) 1.36 [place] # (Auto) 1.0 H Eos # (Auto) 0.1 Baso # (Auto) 0.0 Abs Immat Gran (auto) 0.06 H Absolute Neuts (auto) 10.0 H Absolute Nucleated RBC 0.0 Nucleated RBC % 0.0 OB - PN A/P Plan day: 1 Plan: routine care Comments: encouraged , support given Time Spent With Patient Time: Total time spent is greater than 50% in coordination of care (as documented) at patient's floor/unit and/or counseling patient: Exam Narrative: NAD abdomen soft, appropriately tender, incision bandaged Extremities nontender with 1+ edema
[2022-04-20] MEDS: DOCUSATE SODIUM 100 MG CAPSULE PO ×2 (08:00→15:18)
[2022-04-20] MEDS: MULTIVIT/MIN/PREN/FOL AC/IRON TABLET 1 TAB PO (08:00)
[2022-04-20 08:35] VITALS: BP 112/74; PULSE 85; RESP 16; TEMP 36.4; O2SAT 97
--- NOTE | 2022-04-20 08:52 | WPDANLDPN2 ---
Anes-Prog Note L&D Date/Time: 04/20/22 08:52 Comfortable throughout: section Neuraxial method: spinal Epidural/Spinal procedure site: clean & non-tender Neuro status: Neuro function grossly intact. Cardiovascular status: normal Respiratory status: normal Airway patency: baseline Mental status: baseline Post-Op hydration status: normal Vital Signs: Last Vital Signs Temp 36.7 C 04/20/22 03:45 Pulse 85 04/20/22 03:45 Resp 18 04/20/22 03:45 BP 114/71 04/20/22 03:45 Pulse Ox 98 04/19/22 15:00 O2 Del Method Room Air 04/20/22 04:18 Pain score (VAS): 4/10 I/O: Intake & Output 04/19/22 04/20/22 04/20/22 23:59 07:59 15:59 Intake Total 1000 2000 Output Total 450 1750 Balance 550 250 Post-procedural complaints: pruritis moderate, treatment effective Patient feedback: Patient satisfied with anesthetic care.
--- NOTE | 2022-04-20 08:52 | WPDANLDNPN2 ---
Anes-Prog Note L&D-Neuraxial Date/Time: 04/20/22 08:52 Neuraxial medications: intrathecal PF morphine Opiod-related complaints: pruritis moderate, treatment effective Patient feedback: Patient satisfied with post-operative pain management.
--- NOTE | 2022-04-20 14:00 | PC.NURSE ---
[id number] Breast pump provided due to ineffective . Instructions given on cleaning, care, usage, there should be no pain, pumping schedule for milk production, collection, and storage of human milk. Parents are encouraged to record pumping schedule of 8 times in 24 hours with 1-2 times at night on the feeding sheet. Patient was assessed for correct placement, flange size, to pump for comfort and nipple stretching/stimulation for adequate milk production. Mother voiced understanding of the education shared. Syringe fed 0.3 mls to infant. Reported to the primary RN.
[2022-04-20] MEDS: HYDROcodone/acetaminophen (*CRX) 10-325 MG TABLET 1 TAB PO (15:19)
[2022-04-20 15:32] VITALS: BP 125/86; PULSE 87; RESP 22; TEMP 36.2; O2SAT 100
[2022-04-20 19:00] VITALS: BP 107/72; PULSE 85; RESP 18; TEMP 36.6
[2022-04-21] MEDS: DOCUSATE SODIUM 100 MG CAPSULE PO ×2 (06:20→16:38)
[2022-04-21] MEDS: IBUPROFEN 600 MG TABLET PO ×3 (06:20→22:31)
[2022-04-21] MEDS: HYDROcodone/acetaminophen (*CRX) 5-325 MG TABLET 1 TAB PO ×3 (06:21→22:32)
[2022-04-21] MEDS: MULTIVIT/MIN/PREN/FOL AC/IRON TABLET 1 TAB PO (06:22)
[2022-04-21] MEDS: ONDANSETRON HCL ODT 4 MG TABLET PO (06:45)
--- NOTE | 2022-04-21 07:21 | PM.OBPNVD ---
OB - PN: Subj Subjective Date/time seen: 04/21/22 07:21 Patient comments: no complaints, pain well controlled, incisional pain, tolerating diet and flatus present OB - PN: Obj Data Labs CBC & Chem 7: 04/20/22 03:22 OB - PN A/P Plan day: 2 Plan: routine care Comments: POD#2 LTCS - no problems, Time Spent With Patient Time: Total time spent is greater than 50% in coordination of care (as documented) at patient's floor/unit and/or counseling patient: Exam Const: General: comfortable, no acute distress and alert Resp: Effort & Inspection: normal respiratory effort Auscultation: no crackles, no rales and no rhonchi Cardio: Rate: regular rate Heart sounds: no click, no murmurs and no rubs GI: Inspection: non-distended GI Palp: No Tenderness to palpation present (GI) Auscultation: normal bowel sounds Other: Incision - CDI Extrem: General: normal to inspection, no pedal edema and no calf tenderness
[2022-04-21 07:30] VITALS: BP 125/71; PULSE 84; RESP 16; TEMP 36.7; O2SAT 97
[2022-04-21] MEDS: NEOMYCIN/POLYMYXIN/BACITRACIN OINTMENT 15 GM TUBE 1 APPLIC TOPICAL ×2 (11:00→22:30)
[2022-04-21 18:45] VITALS: BP 120/69; PULSE 91; RESP 18; TEMP 36.8
--- NOTE | 2022-04-22 07:01 | P.PNOB_ITS ---
OB - PN: Subj Subjective Date/time seen: 04/22/22 07:01 Patient comments: no complaints and pain well controlled baby status: doing well and nursing well [place] feeding status: exclusively breast feeding OB - PN: Obj Data Labs CBC & Chem 7: 04/20/22 03:22 OB - PN A/P Plan day: 3 Plan: routine care and discharge home Comments: FU 1 week incision check Time Spent With Patient Time: Total time spent is greater than 50% in coordination of care (as documented) at patient's floor/unit and/or counseling patient: Review of Systems Review of Systems: All systems reviewed & are unremarkable except as noted in HPI and below Exam Narrative: NAD abdomen soft, appropriately tender, incision CDI
--- NOTE | 2022-04-22 07:06 | P.DS_ITS ---
DS: Admitting Diagnosis Discharge Date 04/22/22 Admitting Diagnosis term IUP, LGA DS: Discharge Diagnosis Discharge Diagnosis (1) delivery delivered: Code(s): O82 - Encounter for delivery without indication Status: Acute DS: Summary Hospital Course Reason for hospitalization: section Hospital Course: Baljinder was admitted for a scheduled CS for macrosomia. Her delivery and post course were uncomplicated. She was DCed home on POD3. Status at Discharge Functional status at discharge: independent ambulation Time Spent with Patient Time attestation: Total time spent providing and/or coordinating discharge services: Exam Narrative: NAD abdomen soft, appropriately tender, incision CDI Discharge Plan Discharge Attending physician on discharge: Jenna Castillo Discharging Clinician: Jenna Castillo Anticipated Discharge Date/Time: 04/22/22 07:02 Patient Disposition: Home, Self-Care Activity: no straining, may drive after 2 weeks and pelvic rest Diet: regular Discharge Instructions: pelvic rest for 6 weeks Patient Instructions: Antibiotic Form Stand Alone Forms: General Discharge Information Follow-up/Referrals: Jenna Castillo MD [Physician] - 1 Week Discharge Medications: New hydrocodone-acetaminophen 5-325 mg Tablet 1 tablet PO Q4-5H PRN (Reason: Moderate Pain (4-6)) Qty: 30 0RF docusate sodium 100 mg Capsule 100 mg PO BID PRN (Reason: constipation) Qty: 60 0RF ibuprofen 600 mg Tablet 600 mg PO Q6H PRN (Reason: Cramping) Qty: 60 0RF Continued prenat.vits,kasia,[id number] Tablet 1 tablet PO HS Date of admission: 04/19/22 05:13 Primary Care Provider: Lesley Morales Admitting Provider: Jenna Castillo Attending physician on admission: Jenna Castillo Condition: Stable
[2022-04-22 07:30] VITALS: BP 130/79; PULSE 77; RESP 18; TEMP 36.5; O2SAT 100
[2022-04-22] MEDS: IBUPROFEN 600 MG TABLET PO (07:37)
[2022-04-22] MEDS: MULTIVIT/MIN/PREN/FOL AC/IRON TABLET 1 TAB PO (07:38)
[2022-04-22] MEDS: DOCUSATE SODIUM 100 MG CAPSULE PO (07:38)
[2022-04-22] MEDS: HYDROcodone/acetaminophen (*CRX) 5-325 MG TABLET 1 TAB PO (07:38)
--- NOTE | 2022-04-22 11:53 | PC.NURSE ---
Patient viewed the discharge video Mother & Baby Care, The First Two Weeks . Patient was given the opportunity and encouraged to ask questions. Patient verbalized understanding of information shared and has been given the mother/baby guide for home reference.
--- NOTE | 2022-04-22 12:35 | PC.NURSE ---
[id number], then [id number] Consulted with patient to assess needs related to . Mother led conversation with her experience with feeding her baby so far. Encouraged understanding the benefits of skin to skin, responding to feeding cues, frequencies of feeding at least 8 times in 24 hours (approximately 2-3 hours), duration of feedings, milk production, intake/output feeding sheet. Reviewed pump and feeding plan now that mother's milk is in. Discussed milk production, transition of milk, milk supply, storage, and prevention of infection. Resources used to facilitate learning were used from the mom and baby guide. Mother will continue with the plan of pumping, feeding human milk, then supplementing as needed to feed . Reminded parents to use good handwashing technique to prevent infection. Mother is feeding appropriately for growth of infant and understands stimulating infant to eat if needed. Infant has had appropriate feedings in the last 24 hours meets the outcomes for weight, output and jaundice at this time. Mother states she is confident to continue feeding her infant at home, know when to call for assistance and denies any additional assistance or education at this time. Reinforced understanding of milk production, transition of milk, signs of adequate intake, prevention/relief of engorgement, responsive after visualizing feeding cues, the different methods of stimulating infant to breastfeed 2-3 hours after the start of the last feeding, community resources, medication information reviewed per [employer] and when to call a provider using the resource of the mom and baby guide/[facility] website. Mother voiced understanding of the education shared. Reported to the primary RN.
[2022-04-23 10:13] VITALS: PULSE 82; RESP 20; TEMP 37.1; O2SAT 99
== END 2022-04-22 11:58 | disposition home or self-care (01) | DRG 540 ==
LOC: ANHLDR 05:21 → ANHOB2 10:45
PROVIDERS: Admitting Provider Obstetrics & Gynecology; PCP Family Medicine; Visit Provider Obstetrics & Gynecology
PROC: 10D00Z1 Extraction of Products of Conception, Low, Open Approach (ICD-10-PCS; CPT 59514; principal; 2022-04-19 07:30)
DX: O36.63X0 Maternal care for excessive fetal growth, third trimester, not applicable or unspecified (principal); O99.214 Obesity complicating childbirth; O69.81X0 Labor and delivery complicated by cord around neck, without compression, not applicable or unspecified; Z3A.39 39 weeks gestation of pregnancy; Z37.0 Single live birth
CPT/HCPCS: 36415; 85025; A9270; J0131; J1885; J2274; J2370; J2405; J2590; J7120

== ENCOUNTER 2023-01-28 17:44 | Inpatient (IN) | payer OTHER, SELFPAY ==
--- NOTE | ~2023-01-28 | US_ITS ---
Limited Abdominal Sonogram: Real-time sonographic imaging of the right upper quadrant was performed. Clinical History: Acute cholecystitis Findings: The liver appears normal with no evidence of mass lesion or bile duct dilatation. Main por emmanuel vein demonstrates normal direction of flow. The gallbladder is well distended, and contains gallb ladder sludge as well as stones. No gallbladder wall thickening. The common bile duct measures 8 mm. The visualized pancreas, aorta, and IVC are unremarkable. Impression: Cholelithiasis and gallbladder sludge. Mildly dilated common bile duct. Consider MRCP as indicated. Reviewed, dictated and finalized at location . Impression: Cholelithiasis and gallbladder sludge. Mildly dilated common bile duct. Consider MRCP as indicated.
--- NOTE | ~2023-01-28 | XR_ITS ---
EXAMINATION: XR cholangiogram surg 1st inj DATE: 01/31/2023 17:50 CDT INDICATION: CHOLANGIOGRAM . TECHNIQUE: 2 cine clips consisting of 135 and 33 images of the were obtained during right upper quadr ant performed by the surgeon. I was not present in the operating room. Fluoroscopy exposure time was 30.1 seconds. Air Kerma 11.905 mGy. DAP 0.2360 mGym2. COMPARISON: MRCP 01/30/2023, right upper quadrant ultrasound 01/29/2023, CT abdomen pelvis 01/28/2023 FINDINGS: Cannulation of the gallbladder. Partial filling of the gallbladder with filling defects likely repres enting stones. Mild intrahepatic and extra hepatic bile duct dilation. Abrupt cut off of the distal c ommon bile duct with a convex border. IMPRESSION: Mild intrahepatic bile duct dilation. Distal common bile duct obstruction with a crescent sign, typic ally associated with stones, however no stone seen in the prior imaging studies, even after retrospec tive review. In this case, the obstruction may be due to nodular soft tissue edema or other small sof t tissue mass. Reviewed, dictated and finalized at location K. IMPRESSION: Mild intrahepatic bile duct dilation. Distal common bile duct obstruction with a crescent sign, typically associated with stones, however no stone seen in the prior imaging studies, even after retrospective review. In this case, the obst ruction may be due to nodular soft tissue edema or other small soft tissue mass .
--- NOTE | ~2023-01-28 | XR_ITS ---
Portable chest x-ray Comparison: 01/04/2017 Clinical History: Chest pain Findings: Lungs are clear, without focal consolidation or pleural effusion. Cardiomediastinal silho uette is stable. Bones and soft tissues are unremarkable. Impression: Normal chest. Reviewed, dictated and finalized at [facility]. E FINISHER Impression: Normal chest.
--- NOTE | ~2023-01-28 | MR_ITS ---
EXAMINATION: MR MRCP wo/w con/w 3D wo ind DATE: 01/30/2023 09:44 INDICATION: Abnormal liver function tests. TECHNIQUE: Magnetic resonance imaging (MRI) of the abdomen was performed without and with 17 mL Multi Arvind intravenous contrast. Sequences included coronal T2-weighted FS FSE, coronal T2-weighted FSE, a xial T1-weighted LAVA, coronal FS FIESTA, axial dual-echo T1-weighted SPGR, coronal lava-FLEX, sagitt al T2-weighted FSE, axial T2-weighted FSE, and axial DWI. Thick-slab T2-weighted FSE images were obta ined for magnetic resonance cholangiopancreatography (MRCP). Maximum intensity projection 3-D reconst ructions of the volumetric data were created by the technologist. Postcontrast sequences included cor onal LAVA-flex and time course of axial T1-weighted LAVA. COMPARISON: Ultrasound 01/29/2023, CT 01/28/2023 FINDINGS: ABDOMEN MRI: There are trace pleural effusions. There is mild intrahepatic biliary duct dilatation. T he gallbladder is distended and contains gallstones. Gallbladder wall thickening is noted. The spleen , pancreas, adrenal glands, and kidneys are normal. There are no dilated loops of bowel. There is a s mall volume of ascites. There are no pathologically enlarged lymph nodes. ABDOMEN MRCP: The common duct is mildly dilated and measures 7 mm. IMPRESSION: 1. Mild intrahepatic and extrahepatic biliary duct dilatation. No choledocholithiasis. 2. Acute cholecystitis. 3. Small volume of ascites. Reviewed, dictated and finalized at location A. IMPRESSION: 1. Mild intrahepatic and extrahepatic biliary duct dilatation. No choledocholit hiasis. 2. Acute cholecystitis. 3. Small volume of ascites.
--- NOTE | ~2023-01-28 | XR_ITS ---
EXAMINATION: XR ERCP DATE: 02/01/2023 16:21 INDICATION: Choledocholithiasis. TECHNIQUE: 2 spot fluoroscopic images of the right upper quadrant were obtained during endoscopic ret rograde cholangiopancreatography (ERCP). Fluoroscopy exposure time was 200 seconds. COMPARISON: Cholangiogram 01/31/2023 FINDINGS: The endoscope is in the second portion the duodenum. There is contrast opacification of the common duct. There are surgical clips from cholecystectomy. IMPRESSION: 1. Contrast opacification of the common duct. Please refer to the ERCP procedure note for additional details. Reviewed, dictated and finalized at location A. IMPRESSION: 1. Contrast opacification of the common duct. Please refer to the ERCP procedur e note for additional details.
--- NOTE | ~2023-01-28 | CT_ITS ---
CT of the Abdomen and Pelvis: Indication: Abdominal pain Technique: 2.5 mm axial scans were obtained through the abdomen and pelvis following intravenous adm inistration of 100 cc of Omnipaque 350. Dose reduction technique was used on this scan by utilizing a utomated exposure control and iterative reconstruction technique. The dose-length product (DLP) was 1 212.11 mGy-cm. COMPARISON: 12/13/2019 Findings: Scans through the lung bases demonstrate focal airspace disease at the left lung base, anna picious for focal pneumonia.. There is mild periportal edema, nonspecific. Liver is otherwise unremarkable. Gallbladder sludge pres ent. The spleen, pancreas, adrenals and kidneys are within normal limits. No evidence of aortic aneu rysm. No lymphadenopathy. No bowel obstruction or bowel wall thickening. There is no evidence to suggest acute appendicitis. Images through the pelvis were performed. Urinary bladder unremarkable. No adnexal mass seen. No asci marcia. Impression: Suspected focal left lower lobe pneumonia. Gallbladder sludge. Periportal edema, nonspecific. Reviewed, dictated and finalized at [facility]. CELL DESIGNER Impression: Suspected focal left lower lobe pneumonia. Gallbladder sludge. Periportal edema, nonspecific.
[2023-01-28 17:54] VITALS: BP 129/67; PULSE 66; RESP 18; TEMP 36.4; O2SAT 100
--- NOTE | 2023-01-28 18:19 | ECG_ITS ---
Measurements Intervals Marble Rate: 63 P: 29 ND: 123 QRS: 45 QRSD: 94 T: 36 QT: 396 QTc: 406 Interpretive Statements SINUS RHYTHM DELAYED PRECORDIAL R/S TRANSITION BASELINE ARTIFACT- I, II, III, AVR, AVL, AVF, V1 BORDERLINE ECG NO PREVIOUS ECG AVAILABLE FOR COMPARISON Electronically Signed On 01-29-2023 7:52:43 CDT by Rajat Lucero D.O.
[2023-01-28] MEDS: SODIUM CHLORIDE 0.9% IV 1,000 ML 999 ML IV CONT (18:34)
[2023-01-28] MEDS: FAMOTIDINE 20 MG/2 ML VIAL IV PUSH (18:35)
[2023-01-28] MEDS: ONDANSETRON INJ 4 MG/2 ML VIAL IV PUSH (18:35)
[2023-01-28] MEDS: KETOROLAC 30 MG/ML VIAL (*BKC) IV PUSH (18:35)
[2023-01-28 18:39] LABS: Alanine Aminotransferase 56 U/L (6-35); Albumin Level 4.7 g/dL (3.5-5.1); Alkaline Phosphatase 97 U/L (38-126); Anion Gap 8 mmol/L (8-16); Aspartate Amino Transferase 102 U/L (14-36); Bilirubin,Total 0.8 mg/dL (0.2-1.3); Blood Urea Nitrogen 11 mg/dL (7-17); Calcium 9.2 mg/dL (8.4-10.2); Carbon Dioxide 26 mmol/L (22-30); Chloride 106 mmol/L (98-107); Estimated CRCL calculation 116 ml/min; Estimated Glomerular Filt Rate > 60; Glucose 105 mg/dL (65-110); Lipase 59 U/L (23-300); Potassium 3.8 mmol/L (3.4-5.0); Sodium 140 mmol/L (137-145)
[2023-01-28 18:45] LABS: Basophils Percent Auto 0.2 % (0.2-1.2); Eosinophils Absolute Auto 0.1 K/mm3 (0-0.3); Eosinophils Percent Auto 0.6 % (0-4.4); Hemoglobin 14.5 g/dL (12.0-15.0); Immature Granulocyte Absolute 0.06 K/mm3 (0.00-0.031); Immature Granulocyte Percent A 0.4 % (0-0.5); Lymphocytes Absolute Auto 1.59 K/mm3 (0.9-3.2); Lymphocytes Percent Auto 9.7 % (18.3-44.2); Mean Corpuscular HGB Conc 32.2 g/dl (32-36); Mean Corpuscular Hemoglobin 28.8 pg (26-34); Mean Corpuscular Volume 89.3 fl (80-100); Mean Platelet Volume 9.8 fl (7.4-10.4); Monocytes Absolute Auto 0.8 K/mm3 (0.1-0.6); Monocytes Percent Auto 5.1 % (2.6-8.5); Neutrophils Absolute Auto 13.7 K/mm3 (1.3-6.7); Platelet Count Result 304 k/mm3 (150-375); Red Blood Count 5.04 M/mm3 (4.2-5.4); Red Cell Distribution Width 13.5 % (11.5-14.5); White Blood Count 16.3 K/mm3 (4.5-10.0)
--- NOTE | 2023-01-28 19:01 | PC.NURSE ---
patient refusing straight cath at this time. patient encouraged to provide urine sample as soon as she can. patient agreeable with plan.
[2023-01-28 19:16] VITALS: BP 125/78; PULSE 78; O2SAT 99
[2023-01-28 19:16] LABS: Troponin I < 0.012 ng/mL (0.000-0.034)
--- NOTE | 2023-01-28 19:32 | ED.GENADULT ---
HPI - General Adult General Chief complaint: Abdominal Pain Stated complaint: ABD PAIN SINCE 1700 Time Seen by Provider: 01/28/23 17:47 Source: RN notes reviewed History of Present Illness HPI narrative: Patient presents emergency department from home for abdominal pain. Patient states abdominal pain began approximately 1500 today. States the pain is located across the bilateral upper abdomen and in the epigastric region. Pain is described as sharp and stabbing in nature. Associate with nausea and vomiting. Per the friend the patient was having nausea and vomiting by the toilet and was laying her head on the toilet she states that she never actually had a syncopal episode or fully lost consciousness but seem to be in and out. Patient states she did not feel well during that time and had been throwing up patient denies having any chest pain or shortness of breath she denies having any diarrhea. Patient did take Tylenol at home with minimal relief Related Data Home Medications Medication Instructions Recorded Confirmed prenat.vits,kasia,njy-hlyn-huvay 1 tablet PO HS 03/23/22 04/15/22 Allergies Allergy/AdvReac Type Severity Reaction Status Date / Time oseltamivir Allergy Severe Hives Verified 01/28/23 18:07 sulfamethoxazole Allergy Mild Hives Verified 01/28/23 18:07 trimethoprim Allergy Mild Hives Verified 01/28/23 18:07 sulfamethizole Allergy Unknown possibly Verified 01/28/23 18:07 latex Allergy Rash Verified 01/28/23 18:07 Review of Systems Review of Systems: Gen.: Denies fevers or chills ENT: Denies congestion Respiratory: Denies shortness of breath or cough CV: Denies chest pain or palpitations GI: See HPI denies burning, urgency, frequency or hematuria Musculoskeletal: Denies back pain or muscle pain Neuro: Denies numbness, tingling, weakness or focal weakness Skin: Denies rash Except as documented, all other systems reviewed and negative [facility] Past Medical History Medical History (Updated 01/28/23 @ 21:21 by Roberto Riojas DO) Allergic rhinitis Anxiety Bipolar affect, depressed IUD (intrauterine device) in place Sciatica of right side Surgical History Surgical History No history of previous surgery Family History Family History Other Family history of suicide Social History Social History Smoking status: Never smoker Alcohol intake: never Substance use: never Living arrangements: with family Occupation/Education: occupation Additional occupation/education comments: Daycare worker Gender identity (if verbalized by the patient): Female Spiritual care concerns: No Exam Narrative: APPEARANCE: No acute distress, nontoxic, resting in bed EYES: EOMI HEENT: Normocephalic, atraumatic, OMM RESPIRATORY: No respiratory distress Clear to auscultation bilaterally with no rhonchi wheezing or rales. CARDIOVASCULAR: Regular rate and rhythm without murmurs rubs or gallops. ABDOMINAL: Soft, nondistended tender to palpation in the epigastric, right upper quadrant and left upper quadrant no tenderness in the right lower quadrant left lower quadrant no rebound or guarding MUSCULOSKELETAl: Moves all extremities. No clubbing, cyanosis or edema. NEURO: Awake and alert. Following commands, speech normal, no focal deficits SKIN:: Warm, dry. No rashes lesions or abrasions PSYCHIATRIC: Normal affect/mood, Course Course Emergency Course: Plan CT scan repeated on exam shows patient still have tenderness in the right upper quadrant. I discussed with patient she states over the past several months she has been having intermittent episodes of pain in the upper abdomen that she just thought was indigestion states that these episodes have been more severe over the past week believe these are likely biliary colic. I did discuss questionable pneu
[2023-01-28 19:48] LABS: Appearance Urine Clear (Clear); Bacteria Urine None Seen /hpf; Bilirubin Urine Negative (Negative); Blood Urine 3+ (Negative); Color Urine Yellow (Yellow); Glucose Urine UA Negative (Negative); Ketones Urine Negative (Negative); Leukocyte Esterase Ur Negative LEU/UL (Negative); Nitrate Urine Negative (Negative); Non Pathogenic Casts 0-2; Protein Urine Negative (Negative); RBC Urine 0-2 /hpf (0-2); Specific Grav Ur 1.007 (1.001-1.035); Squamous Epithelial Cell Urine None seen /hpf (Few); WBC Urine 0-5 /hpf; pH Urine 6.5 (5.0-9.0)
[2023-01-28 19:53] LABS: Add Urine Microscopic? YES
[2023-01-28 21:19] VITALS: BP 115/68; PULSE 60; RESP 17; O2SAT 100
--- NOTE | 2023-01-28 21:36 | PM.IMHP ---
H&P: HPI History of Present Illness Date/Time: 01/28/23 21:36 Chief Complaint: Right upper quadrant pain Narrative: This is a 22-year-old female past medical history significant for bipolar affect, generalized anxiety disorder, obesity. Patient presents to the emergency room due to right upper quadrant pain, nausea, no vomiting, night sweats, chills. Patient denies any cough, sputum production. Workup was significant for leukocytosis of 16,[address] of abdomen and pelvis was reported as: Findings:? Scans through the lung bases demonstrate focal airspace disease at the left lung base, suspicious for focal pneumonia.. There is mild periportal edema, nonspecific. Liver is otherwise unremarkable. Gallbladder sludge present. The spleen, pancreas, adrenals and kidneys are within normal limits.? No evidence of aortic aneurysm.? No lymphadenopathy. No bowel obstruction or bowel wall thickening. There is no evidence to suggest acute appendicitis. Images through the pelvis were performed. Urinary bladder unremarkable. No adnexal mass seen. No ascites. Impression: Suspected focal left lower lobe pneumonia. Gallbladder sludge. Periportal edema, nonspecific. Patient is been admitted for further evaluation management and treatment. Review of Systems Review of Systems: Right upper quadrant pain Constitutional: Constitutional: Reports chills, Reports fatigue, Reports fever(s), Reports malaise and Reports night sweats Eyes: Eyes: Denies change in vision ENT: Denies dysphagia and Denies odynophagia Cardiovascular: Cardiovascular: Denies chest pain, Denies leg edema, Denies lightheadedness and Denies palpitations Respiratory: Respiratory: Denies change in phlegm color, Denies chest congestion, Denies cough, Denies excessive phlegm production, Denies pain on inspiration and Denies dyspnea Gastrointestinal: Gastrointestinal: Reports abdominal pain (Right upper quadrant), Denies melena, Denies bloating, Denies hematochezia, Reports dyspepsia, Denies heartburn, Denies diarrhea, Denies loose stools, Reports nausea and Denies vomiting Genitourinary: Genitourinary: Denies dysuria Musculoskeletal: Musculoskeletal: Denies back pain, Denies arthralgias, Denies joint swelling and Denies muscle weakness Integumentary/Breasts: Skin/Breast: Denies rash Neurologic: Denies focal weakness and Denies Sensory deficit (Neuro) Psychiatric: Psychiatric: Reports no additional psychiatric complaints and Reports as per HPI Endocrine: Endocrine: Denies cold intolerance, Denies flushing, Denies heat intolerance, Denies polyphagia, Denies polydipsia and Denies palpitations Hematologic/Lymphatic: Hematologic/Lymphatic: Reports no additional hematologic/lymphatic complaints and Reports as per HPI Allergic/Immunologic: Allergic/Immunologic: Reports no additional allergic/immunologic complaints and Reports as per HPI PMFSH Past Medical History Medical History (Updated 01/29/23 @ 00:15 by Rodrigo Mendez MD) Allergic rhinitis Anxiety Bipolar affect, depressed IUD (intrauterine device) in place Sciatica of right side Surgical History Surgical History No history of previous surgery Family History Family History Other Family history of suicide Social History Social History Smoking status: Never smoker Alcohol intake: never Substance use: never Substance use type: does not use Lack of Transportation: No Lack of Food: Never True Current Housing: I Have Housing Concerned About Future Housing: No Difficulty Paying Gas/Electric Bills: No Difficulty Paying for Meds: No Currently Unemployed: No Education: High School Diploma/GED Difficulty w/ Childcare or Family Care: No Living arrangements: with family Occupation/Education: occupation Additional occupation/edu
[2023-01-28] MEDS: PIPERACILLN/TAZ 3.375GM/NS50ML 3.375 GM/50 ML BAG IVPB (22:26)
[2023-01-28 22:46] VITALS: BP 115/76; PULSE 65; O2SAT 100
[2023-01-28 22:57] LABS: Lactic Acid Reflex 0.8 mmol/L (0.7-2.0)
--- NOTE | 2023-01-28 23:09 | ADMGEN ---
This patient, Baljinder Cardoza, was admitted to Medical Room 261-01. Patient/family oriented to hospital policies and general routines including ID bracelet, bed and alarms, visiting hours, pain management, procedures, bathroom and other care routines, personal items, smoking policy, room service/diet, and visiting hours. Information on how to activate the Rapid Response Team has been discussed. Patient/Family are encouraged to report perceived risks to care and to ask questions if they do not understand what they are told or what they should do.
[2023-01-28 23:12] VITALS: BP 122/67; PULSE 64; RESP 20; TEMP 36.6; O2SAT 100; BMI 32.5
[2023-01-28] MEDS: SODIUM CHLORIDE 0.9% IV 1,000 ML 125 ML IV CONT (23:29)
[2023-01-29] MEDS: PIPERACILLN/TAZ 3.375GM/NS50ML 3.375 GM/50 ML BAG IVPB ×4 (03:30→21:01)
[2023-01-29] MEDS: HYDROmorphone HCL INJ (*CRX) 1 MG/ML SYR IV PUSH (04:27)
--- NOTE | 2023-01-29 05:10 | PC.NURSE ---
Assumed care of this pt from CHATO Maier.
[2023-01-29 05:20] VITALS: BP 122/67; PULSE 72; RESP 20; TEMP 36.6; O2SAT 98
[2023-01-29 05:49] LABS: Basophils Percent Auto 0.4 % (0.2-1.2); Eosinophils Percent Auto 0.6 % (0-4.4); Hematocrit 41.8 % (37.0-47.0); Hemoglobin 13.5 g/dL (12.0-15.0); Immature Granulocyte Absolute 0.01 K/mm3 (0.00-0.031); Immature Granulocyte Percent A 0.1 % (0-0.5); Lymphocytes Absolute Auto 1.15 K/mm3 (0.9-3.2); Lymphocytes Percent Auto 16.5 % (18.3-44.2); Mean Corpuscular HGB Conc 32.3 g/dl (32-36); Mean Corpuscular Hemoglobin 29.1 pg (26-34); Mean Corpuscular Volume 90.1 fl (80-100); Monocytes Absolute Auto 0.8 K/mm3 (0.1-0.6); Monocytes Percent Auto 10.7 % (2.6-8.5); Neutrophils Percent Auto 71.7 % (45.5-73.1); Platelet Count Result 251 k/mm3 (150-375); Red Blood Count 4.64 M/mm3 (4.2-5.4); Red Cell Distribution Width 13.5 % (11.5-14.5)
[2023-01-29 05:53] LABS: Alanine Aminotransferase 716 U/L (6-35); Albumin Level 3.8 g/dL (3.5-5.1); Alkaline Phosphatase 122 U/L (38-126); Anion Gap 2 mmol/L (8-16); Bilirubin,Total 1.7 mg/dL (0.2-1.3); Blood Urea Nitrogen 7 mg/dL (7-17); Calcium 8.3 mg/dL (8.4-10.2); Carbon Dioxide 26 mmol/L (22-30); Chloride 108 mmol/L (98-107); Estimated CRCL calculation 136 ml/min; Estimated Glomerular Filt Rate > 60; Glucose 106 mg/dL (65-110); Potassium 3.8 mmol/L (3.4-5.0); Sodium 136 mmol/L (137-145)
[2023-01-29 06:34] LABS: Aspartate Amino Transferase 1237 U/L (14-36)
[2023-01-29] MEDS: ONDANSETRON INJ 4 MG/2 ML VIAL IV PUSH (09:32)
[2023-01-29] MEDS: SODIUM CHLORIDE 0.9% IV 1,000 ML 125 ML IV CONT (09:32)
--- NOTE | 2023-01-29 09:38 | PM.IMPN ---
Progress Note: A&P Assessment and Plan (1) Acute cholecystitis: Code(s): K81.0 - Acute cholecystitis Status: Acute Assessment and Plan: Admit to regular medical floor Started on Zosyn General surgery consult (2) Bipolar affect, depressed: Qualifiers: Current episode severity: moderate Qualified Code(s): F31.32 - Bipolar disorder, current episode depressed, moderate Code(s): F31.30 - Bipolar disorder, current episode depressed, mild or moderate severity, unspecified Status: Acute Assessment and Plan: Stable (3) Left lower lobe pneumonia: Code(s): J18.9 - Pneumonia, unspecified organism Status: Acute Assessment and Plan: Chest x-ray was clear Seen on CT of abdomen and pelvis Currently on Zosyn Plan Her right upper quadrant pain intermittent for a week increased yesterday with leukocytosis. CT abdomen with periportal edema gallbladder sludge. Highly suspect acute cholecystitis. Now with increased liver enzymes. Will check right upper quadrant ultrasound today. Continue on NPO. Hold Tylenol. Continue morphine and Zofran. IV antibiotics is Zosyn Elevated liver enzymes worsened today check hepatitis panel. Tylenol. Right upper quadrant ultrasound today Left lower lobe pneumonia seen on CT chest x-ray was clear continue on Zosyn no respiratory symptoms Nine bipolar disorder current medications at home DVT prophylaxis Lovenox Code status full code Subjective Date/time seen: 01/29/23 09:38 Interval history: Feels better today intermittent pain leukocytosis resolved. Nausea present. Upper quadrant pain AST ALT has increased. No history of alcohol use. Lipase is normal. Review of Systems Review of Systems: All systems reviewed & are unremarkable except as noted in HPI and below Exam Narrative: GENERAL: The patient is well developed, not in acute distress HEENT: Nonicteric sclerae, PERRLA, EOMI. Oropharynx clear. Moist mucous membranes. Conjunctivae appear well perfused. CHEST: Chest wall is nontender. HEART: Regular rate and rhythm without murmur, rubs, or gallops LUNGS: Clear to auscultation bilaterally. no respiratory distress ABDOMEN: Soft, positive bowel sounds, tender right upper quadrant, no organomegaly. SKIN: No rash, no excessive bruising, petechiae, or purpura. NEUROLOGIC: Cranial nerves II-XII intact, alert and oriented x 3, no gross motor deficits EXTREMITIES: no edema, cyanosis or clubbing Objective Data Vital Signs Vital Signs: Vital Signs - 24 hr 01/28/23 17:54 01/28/23 19:16 01/28/23 21:19 Temperature 97.5 F L Pulse Rate 66 78 60 Respiratory Rate 18 17 Blood Pressure 129/67 125/78 115/68 Pulse Oximetry 100 99 100 Oxygen Delivery Room Air 01/28/23 22:46 01/28/23 23:03 01/28/23 23:12 Temperature 97.8 F Pulse Rate 65 64 Respiratory Rate 20 Blood Pressure 115/76 122/67 Pulse Oximetry 100 100 Oxygen Delivery Room Air 01/29/23 05:20 Temperature 97.9 F Pulse Rate 72 Respiratory Rate 20 Blood Pressure 122/67 Pulse Oximetry 98 Oxygen Delivery Intake/Output Intake/Output: Intake & Output 01/26/23 01/27/23 01/28/23 01/30/23 23:59 23:59 23:59 00:59 Intake Total 1050 1150 Balance 1050 1150 Meds/Results Medications: Active Medications Generic Name Dose Route Start Last Admin Trade Name Freq PRN Reason Stop Dose Admin Hydromorphone HCl 0.5 mg 01/29/23 04:10 Hydromorphone Hcl Inj (*Crx) 1 Mg/Ml Syr IV PUSH Q3H PRN Breakthrough Pain Piperacillin/Tazobactam/Dextrose 3.375 gm in 50 mls @ 100 mls/hr 01/29/23 04:00 01/29/23 04:00 Zosyn 3.375 Gm/Ns 50 Ml IVPB Infused Q6H KOREY Infusion Sodium Chloride 1,000 mls @ 125 mls/hr 01/28/23 21:00 01/29/23 09:32 Normal Saline Iv IV CONT 125 mls/hr .Q8H KOREY Administration Acetaminophen 1,000 mg in 100 mls @ 400 mls/hr 01/29/23 04:10 01/29/23 08:39 Ofirmev 1,000 Mg Ivpb IVPB 01/30/23 04:09 Infused
[2023-01-29 10:47] LABS: Hepatitis B Surface Antigen Negative (Negative)
[2023-01-29 10:52] LABS: HAV RESULT Negative (Negative); Hepatitis B Core IgM Result Negative (Negative)
[2023-01-29 11:04] LABS: Hepatitis C Virus Antibody Negative (Negative)
--- NOTE | 2023-01-29 11:32 | PM.CNGS ---
Assessment and Plan Assessment and plan (1) Acute cholecystitis: Code(s): K81.0 - Acute cholecystitis Status: Acute Assessment and Plan: Patient likely has acute cholecystitis or gallbladder sludge. Continue IV antibiotics and bowel rest. Eventually I think she will need a laparoscopic cholecystectomy. (2) Left lower lobe pneumonia: Code(s): J18.9 - Pneumonia, unspecified organism Status: Acute Assessment and Plan: Seen on CT scan. She has been started on Zosyn for acute cholecystitis in the should cover community-acquired pneumonia as well. (3) Elevated liver enzymes: Code(s): R74.8 - Abnormal levels of other serum enzymes Status: Acute Assessment and Plan: Could be due to the acute cholecystitis but also need to rule out that she has sludge or common bile duct stone causing the elevation in liver enzymes. We will repeat the liver enzymes the morning and if there is not a trend towards decreasing back to normal then I would recommend getting an MRCP tomorrow to evaluate the common bile duct. History of Present Illness Consult details Consult date: 01/29/23 Narrative: Patient is a 22-year-old female who is about 10 months after having a . She was admitted through the emergency room yesterday with severe right upper quadrant abdominal pain associated with radiation of the pain to the right shoulder and nausea vomiting. She states she has been having intermittent pain a couple times a month for about the last 7 months. She notes that the pain is worse with eating spicy and fatty foods. She has not noted any no bloating or stool urgency after eating. She has not noted any moira-colored stools. Workup in the emergency room with a CT scan abdomen pelvis showed gallbladder sludge and some periportal edema suggestive of possible acute cholecystitis. White blood cell count was elevated as well she was afebrile. Liver enzymes were also mildly elevated and today they are increased again with a total bilirubin up to 1.7. White blood cell count is normalized on IV antibiotics. Abdominal ultrasound was this morning but the results are pending. Review of Systems Review of Systems: The remainder of the review of systems to include constitutional, HEENT, cardiovascular, respiratory, GI, , integumentary, musculoskeletal, endocrine, immunologic, hematologic, psychiatric, and neurologic are all negative except for which is mentioned above in the [facility]. [facility] Past Medical History Medical History (Updated 01/29/23 @ 11:36 by Gael Booth MD) Allergic rhinitis Anxiety Bipolar affect, depressed IUD (intrauterine device) in place Sciatica of right side Surgical History Surgical History No history of previous surgery Family History Family History Other Family history of suicide Social History Social History Smoking status: Never smoker Alcohol intake: never Substance use: never Substance use type: does not use Lack of Transportation: No Lack of Food: Never True Current Housing: I Have Housing Concerned About Future Housing: No Difficulty Paying Gas/Electric Bills: No Difficulty Paying for Meds: No Currently Unemployed: No Education: High School Diploma/GED Difficulty w/ Childcare or Family Care: No Living arrangements: with family Occupation/Education: occupation Additional occupation/education comments: Daycare worker Gender identity (if verbalized by the patient): Female Spiritual care concerns: No Meds Home Medications and Allergies Home Medications Medication Instructions Recorded Confirmed Type No Home Medications 01/28/23 01/28/23 History Allergies Allergy/AdvReac Type Severity Reaction Status Date / Time oseltamivir Allergy Severe
[2023-01-29 14:00] VITALS: BP 126/72; PULSE 73; RESP 20; TEMP 36.6; O2SAT 97
[2023-01-29 17:11] LABS: Glucose Point of Care 64 mg/dl (65-105)
[2023-01-29] MEDS: HYDROmorphone HCL INJ (*CRX) 1 MG/ML SYR 0.5 MG IV PUSH (18:02)
[2023-01-29] MEDS: DEXTROSE 5%/0.9% SOD CHL 1,000 ML 125 ML IV CONT (18:03)
[2023-01-29] MEDS: FAMOTIDINE 20 MG/2 ML VIAL IV PUSH (21:00)
[2023-01-29 22:00] VITALS: BP 111/67; PULSE 51; RESP 20; TEMP 36.4; O2SAT 100
[2023-01-30] MEDS: PIPERACILLN/TAZ 3.375GM/NS50ML 3.375 GM/50 ML BAG IVPB ×4 (03:19→21:33)
[2023-01-30] MEDS: DEXTROSE 5%/0.9% SOD CHL 1,000 ML 125 ML IV CONT ×2 (05:41→18:03)
[2023-01-30 05:59] LABS: Basophils Percent Auto 0.9 % (0.2-1.2); Eosinophils Absolute Auto 0.1 K/mm3 (0-0.3); Hematocrit 38.4 % (37.0-47.0); Hemoglobin 12.4 g/dL (12.0-15.0); Immature Granulocyte Absolute 0.01 K/mm3 (0.00-0.031); Immature Granulocyte Percent A 0.2 % (0-0.5); Lymphocytes Absolute Auto 1.52 K/mm3 (0.9-3.2); Lymphocytes Percent Auto 33.9 % (18.3-44.2); Mean Corpuscular HGB Conc 32.3 g/dl (32-36); Mean Corpuscular Hemoglobin 28.5 pg (26-34); Mean Corpuscular Volume 88.3 fl (80-100); Mean Platelet Volume 9.9 fl (7.4-10.4); Monocytes Absolute Auto 0.5 K/mm3 (0.1-0.6); Neutrophils Absolute Auto 2.3 K/mm3 (1.3-6.7); Platelet Count Result 210 k/mm3 (150-375); Red Blood Count 4.35 M/mm3 (4.2-5.4); Red Cell Distribution Width 13.7 % (11.5-14.5); White Blood Count 4.5 K/mm3 (4.5-10.0)
[2023-01-30 06:00] VITALS: BP 101/64; PULSE 65; RESP 20; TEMP 36.6; O2SAT 99
[2023-01-30 06:21] LABS: Alanine Aminotransferase 620 U/L (6-35); Albumin Level 3.3 g/dL (3.5-5.1); Alkaline Phosphatase 146 U/L (38-126); Anion Gap 2 mmol/L (8-16); Aspartate Amino Transferase 347 U/L (14-36); Bilirubin,Total 2.2 mg/dL (0.2-1.3); Blood Urea Nitrogen 3 mg/dL (7-17); Carbon Dioxide 24 mmol/L (22-30); Chloride 111 mmol/L (98-107); Estimated CRCL calculation 136 ml/min; Estimated Glomerular Filt Rate > 60; Glucose 105 mg/dL (65-110); Potassium 3.6 mmol/L (3.4-5.0); Sodium 137 mmol/L (137-145)
[2023-01-30] MEDS: FAMOTIDINE 20 MG/2 ML VIAL IV PUSH ×2 (10:08→20:36)
--- NOTE | 2023-01-30 12:49 | PM.PNGS ---
Progress Note: A&P Assessment and Plan (1) Acute cholecystitis: Code(s): K81.0 - Acute cholecystitis Status: Acute Assessment and Plan: Patient with acute calculous cholecystitis and elevated liver enzymes. Total bilirubin up to 2.2 today from 1.7. MRCP ordered and showed acute calculous cholecystitis with mild intrahepatic and extrahepatic biliary duct dilatation, but no choledocholithiasis. Will go ahead and consult GI to evaluate for possible need for ERCP. Continue IV antibiotics for now. Will await GI recommendations, but patient wishes to have a cholecystectomy on this admission. (2) Elevated liver enzymes: Code(s): R74.8 - Abnormal levels of other serum enzymes Status: Acute Assessment and Plan: Total bilirubin went up to 2.2 today from 1.7. MRCP negative for common duct stone but shows biliary duct dilatation, see plan above. (3) Left lower lobe pneumonia: Code(s): J18.9 - Pneumonia, unspecified organism Status: Acute Assessment and Plan: Still on IV Zosyn. Continue medical management per Hospitalist. Plan I have discussed the patient's case and plan of care with Dr. Booth. Subjective Subjective Date/Time Seen: 01/30/23 11:49 Patient reports: pain is less (somewhat improved, but still with more mild RUQ abd pain) and afebrile Interval history: This is a 22 yo F who is 10 months after who presented with acute calculous cholecystitis, LLL pneumonia, and elevated LFTs. Chart reviewed. She is seen on the medical floor today after having an MRCP that showed acute cholecystitis, no common duct stone. She is still having some RUQ abdominal pain, but this has improved since admission. She has not required IV Dilaudid since 1800 last night. She denies any nausea at this time. No other specific complaints. Review of Systems Review of Systems: All systems reviewed & are unremarkable except as noted in HPI and below Exam Const: General: comfortable and no acute distress Orientation/consciousness: patient oriented x3 GI: Inspection: non-distended GI Palp: Yes Soft to palpation, Yes Tenderness to palpation present (GI) (RUQ), No Guarding due to palpation present (GI) and No Rebound tenderness present Auscultation: normal bowel sounds Skin: General skin exam: normal color Psych: Mental Status: mental status grossly normal Insight: Good insight present (Psych) Judgement: Good judgement present (Psych) Objective Data Vital Signs Vital Signs: Vital Signs - 24 hr 01/29/23 14:00 01/29/23 20:00 01/29/23 22:00 Temperature 97.8 F 97.6 F Pulse Rate 73 51 L Respiratory Rate 20 20 Blood Pressure 126/72 111/67 Pulse Oximetry 97 100 Oxygen Delivery Room Air 01/30/23 06:00 01/30/23 08:00 Temperature 97.9 F Pulse Rate 65 Respiratory Rate 20 Blood Pressure 101/64 Pulse Oximetry 99 Oxygen Delivery Room Air Intake/Output Intake/Output: Intake & Output 01/27/23 01/28/23 01/29/23 01/30/23 22:59 22:59 23:59 23:59 Intake Total 1050 Output Total 150 Balance 900 Meds/Results Medications: Active Medications Generic Name Dose Route Start Last Admin Trade Name Freq PRN Reason Stop Dose Admin Famotidine 20 mg 01/29/23 21:00 01/30/23 10:08 Famotidine 20 Mg/2 Ml Vial IV PUSH 20 mg Q12HR KOREY Administration Hydromorphone HCl 0.5 mg 01/29/23 16:44 01/29/23 18:02 Hydromorphone Hcl Inj (*Crx) 1 Mg/Ml Syr IV PUSH 0.5 mg Q4HR PRN Administration Pain Rated 4-6 Hydromorphone HCl 1 mg 01/29/23 20:08 Hydromorphone Hcl Inj (*Crx) 1 Mg/Ml Syr IV PUSH Q4HR PRN Pain Rated 7-10 Piperacillin/Tazobactam/Dextrose 3.375 gm in 50 mls @ 100 mls/hr 01/29/23 04:00 01/30/23 10:08 Zosyn 3.375 Gm/Ns 50 Ml IVPB 100 mls/hr Q6H KOREY Administration Dextrose/Sodium Chloride 1,000 mls @ 125 mls/hr 01/29/23 17:35 01/30/23 05:41 Dextrose 5% Sodium Chloride 0.9% IV CONT 125 mls/
[2023-01-30] MEDS: KETOROLAC 15 MG/ML VIAL (*BKC) IV PUSH (12:53)
--- NOTE | 2023-01-30 12:57 | PM.PNGS ---
Subjective Subjective Date/Time Seen: 01/30/23 12:57 Interval history: Patient feels pretty good today. Still has some right upper quadrant pain but better than yesterday. No nausea or vomiting she would like to eat something today. White blood cell count is now normal but the total bilirubin has increased from 1.7 to 2.1. Her abdomen is soft and minimally distended. She still has some mild tenderness to deep palpation right upper quadrant. MRCP was done today showing cholelithiasis and gallbladder wall edema with mild dilatation of the common bile duct but no obvious evidence of a retained common bile duct stone. I think we go ahead and give her some clear liquids today as tolerated. I have consulted GI to see her for possible ERCP. We will continue her IV antibiotics for now. She would like to proceed with a laparoscopic cholecystectomy possible open cholecystectomy during this admission. Will get the input from GI before making definite surgical plans. Objective Data Vital Signs Vital Signs: Vital Signs - 24 hr 01/29/23 14:00 01/29/23 20:00 01/29/23 22:00 Temperature 36.6 C 36.4 C Pulse Rate 73 51 L Respiratory Rate 20 20 Blood Pressure 126/72 111/67 Pulse Oximetry 97 100 Oxygen Delivery Room Air 01/30/23 06:00 01/30/23 08:00 Temperature 36.6 C Pulse Rate 65 Respiratory Rate 20 Blood Pressure 101/64 Pulse Oximetry 99 Oxygen Delivery Room Air Intake/Output Intake/Output: Intake & Output 01/27/23 01/28/23 01/29/23 01/30/23 22:59 22:59 23:59 23:59 Intake Total 1050 Output Total 150 Balance 900 Meds/Results Medications: Active Medications Generic Name Dose Route Start Last Admin Trade Name Freq PRN Reason Stop Dose Admin Famotidine 20 mg 01/29/23 21:00 01/30/23 10:08 Famotidine 20 Mg/2 Ml Vial IV PUSH 20 mg Q12HR KOREY Administration Hydromorphone HCl 0.5 mg 01/29/23 16:44 01/29/23 18:02 Hydromorphone Hcl Inj (*Crx) 1 Mg/Ml Syr IV PUSH 0.5 mg Q4HR PRN Administration Pain Rated 4-6 Hydromorphone HCl 1 mg 01/29/23 20:08 Hydromorphone Hcl Inj (*Crx) 1 Mg/Ml Syr IV PUSH Q4HR PRN Pain Rated 7-10 Piperacillin/Tazobactam/Dextrose 3.375 gm in 50 mls @ 100 mls/hr 01/29/23 04:00 01/30/23 10:08 Zosyn 3.375 Gm/Ns 50 Ml IVPB 100 mls/hr Q6H KOREY Administration Dextrose/Sodium Chloride 1,000 mls @ 125 mls/hr 01/29/23 17:35 01/30/23 05:41 Dextrose 5% Sodium Chloride 0.9% IV CONT 125 mls/hr .Q8H KOREY Administration Ketorolac Tromethamine 15 mg 01/29/23 16:46 01/30/23 12:53 Ketorolac 15 Mg/Ml Vial (*Bkc) IV PUSH 15 mg Q6H PRN Administration Mild Pain (1-3) Ondansetron HCl 4 mg 01/28/23 21:00 01/29/23 09:32 Ondansetron Inj 4 Mg/2 Ml Vial IV PUSH 4 mg Q4H PRN Administration Nausea Radiology Results: ITS Impressions Chest X-Ray 01/28/23 18:30 Impression: Normal chest. Abdomen/Pelvis CT 01/28/23 20:22 Impression: Suspected focal left lower lobe pneumonia. Gallbladder sludge. Periportal edema, nonspecific. Upper Quadrant Ultrasound 01/29/23 14:41 Impression: Cholelithiasis and gallbladder sludge. Mildly dilated common bile duct. Consider MRCP as indicated. MRCP 01/30/23 09:50 IMPRESSION: 1. Mild intrahepatic and extrahepatic biliary duct dilatation. No choledocholithiasis. 2. Acute cholecystitis. 3. Small volume of ascites. Labs Labs: Laboratory Results - last 24 hr 01/29/23 01/30/23 01/30/23 17:05 05:41 05:41 WBC 4.5 RBC 4.35 Hgb 12.4 Hct 38.4 MCV 88.3 MCH 28.5 MCHC 32.3 RDW 13.7 Plt Count 210 MPV 9.9 Immature Gran % (Auto) 0.2 Neut % (Auto) 51.0 Lymph % (Auto) 33.9 [place] % (Auto) 12.0 H Eos % (Auto) 2.0 Baso % (Auto) 0.9 Lymph # (Auto) 1.52 [place] # (Auto) 0.5 Eos # (Auto) 0.1 Baso # (Auto) 0.0 Abs Immat Gran (auto) 0.01 Absolute Neuts (auto
[2023-01-30 13:20] VITALS: BP 120/75; PULSE 46; RESP 12; TEMP 36.4; O2SAT 100
--- NOTE | 2023-01-30 15:03 | PM.IMPN ---
Progress Note: A&P Assessment and Plan (1) Acute cholecystitis: Code(s): K81.0 - Acute cholecystitis Status: Acute Assessment and Plan: Admit to regular medical floor Started on Zosyn General surgery consult 01/30/2023 iterval history: patient with right upper quadrant pain had MRCP did not show any stone in the bile duct however gallbladder there is edema, patient is seen by surgery service, patient clinical symptoms are improved her pain is better not as nauseated, may start the patient clear liquid, surgery has consulted GI to further evaluate for ERCP, and further recommendation to follow. Feels better today intermittent pain leukocytosis resolved. Nausea present. Upper quadrant pain AST ALT has increased. No history of alcohol use. Lipase is normal. (2) Bipolar affect, depressed: Qualifiers: Current episode severity: moderate Qualified Code(s): F31.32 - Bipolar disorder, current episode depressed, moderate Code(s): F31.30 - Bipolar disorder, current episode depressed, mild or moderate severity, unspecified Status: Acute Assessment and Plan: Stable (3) Left lower lobe pneumonia: Code(s): J18.9 - Pneumonia, unspecified organism Status: Acute Assessment and Plan: Chest x-ray was clear Seen on CT of abdomen and pelvis Currently on Zosyn Plan Her right upper quadrant pain intermittent for a week increased yesterday with leukocytosis. CT abdomen with periportal edema gallbladder sludge. Highly suspect acute cholecystitis. Now with increased liver enzymes. Will check right upper quadrant ultrasound today. Continue on NPO. Hold Tylenol. Continue morphine and Zofran. IV antibiotics is Zosyn Elevated liver enzymes worsened today check hepatitis panel. Tylenol. Right upper quadrant ultrasound today Left lower lobe pneumonia seen on CT chest x-ray was clear continue on Zosyn no respiratory symptoms Nine bipolar disorder current medications at home DVT prophylaxis Lovenox Code status full code Subjective Date/time seen: 01/30/23 15:03 01/30/2023 iterval history: patient with right upper quadrant pain had MRCP did not show any stone in the bile duct however gallbladder there is edema, patient is seen by surgery service, patient clinical symptoms are improved her pain is better not as nauseated, may start the patient clear liquid, surgery has consulted GI to further evaluate for ERCP, and further recommendation to follow. Feels better today intermittent pain leukocytosis resolved. Nausea present. Upper quadrant pain AST ALT has increased. No history of alcohol use. Lipase is normal. Interval history: patient with Feels better today intermittent pain leukocytosis resolved. Nausea present. Upper quadrant pain AST ALT has increased. No history of alcohol use. Lipase is normal. Review of Systems Review of Systems: All systems reviewed & are unremarkable except as noted in HPI and below Objective Data Vital Signs Vital Signs: Vital Signs - 24 hr 01/29/23 20:00 01/29/23 22:00 01/30/23 06:00 Temperature 97.6 F 97.9 F Pulse Rate 51 L 65 Respiratory Rate 20 20 Blood Pressure 111/67 101/64 Pulse Oximetry 100 99 Oxygen Delivery Room Air 01/30/23 08:00 01/30/23 13:20 Temperature 97.5 F L Pulse Rate 46 L Respiratory Rate 12 Blood Pressure 120/75 Pulse Oximetry 100 Oxygen Delivery Room Air Intake/Output Intake/Output: Intake & Output 01/27/23 01/28/23 01/29/23 01/30/23 22:59 22:59 23:59 23:59 Intake Total 1050 Output Total 150 Balance 900 Meds/Results Medications: Active Medications Generic Name Dose Route Start Last Admin Trade Name Freq PRN Reason Stop Dose Admin Famotidine 20 mg 01/29/23 21:00 01/30/23 10:08 Famotidine 20 Mg/2 Ml Vial IV PUSH 20 mg Q12HR KOREY Administration Hydromorphone HCl 0.5 mg 01/29/23 16:44 01/29/23 18:02 Hydromorphone Hcl Inj (*Crx) 1 Mg/Ml Syr IV PUSH 0.5
--- NOTE | 2023-01-30 15:10 | WPDGICN ---
Assessment and Plan Assessment and plan (1) Acute cholecystitis: Code(s): K81.0 - Acute cholecystitis Status: Acute Assessment and Plan: mrcp reviewed, no need of ercp since no filling defects/stones or abnormalities in bile duct, only mild dilation- wonder if already passed stone iv antibiobiotics cholecystitis can explain presentation will need cholecystectomy- timing by surgery (2) Nausea & vomiting: Code(s): R11.2 - Nausea with vomiting, unspecified Status: Acute Assessment and Plan: improved (3) Elevated liver enzymes: Code(s): R74.8 - Abnormal levels of other serum enzymes Status: Acute Assessment and Plan: from cholecystitis trend liver enzymes hepatitis panel negative no alcohol use (4) RUQ pain: Code(s): R10.11 - Right upper quadrant pain Status: Acute (5) Leukocytosis: Code(s): D72.829 - Elevated white blood cell count, unspecified Status: Acute Assessment and Plan: back down to normal on medical treatment GI Consult Note Consult date/time: 01/30/23 15:10 Reason for consult: cholecystitis, elevated liver enzymes HPI: Baljinder Cardoza is a 22 year old female who?is about 10 months after having a .?She came to ER after new onset of severe pain in right upper quadrant abdominal associated with radiation of the pain to the right shoulder and nausea with vomiting, denies previous history of liver disease or alcohol use, otherwise healthy and never had scopes. ER evaluation with CT scan abdomen pelvis that was reviewed, gallbladder sludge and some periportal edema suggestive of possible acute cholecystitis.? White blood cell count was elevated 16k, transaminases 700-1200 but trending down, bili 1.7 up to 2.2.?MRCP did not reveal stones in bile duct, only mild dilation and acute cholecystitis. Review of Systems Constitutional: Constitutional: Denies chills Eyes: Eyes: Denies blurry vision ENT: Reports Normal hearing present Cardiovascular: Cardiovascular: Denies chest pain Respiratory: Respiratory: Denies cough Gastrointestinal: Gastrointestinal: Reports abdominal pain, Reports nausea and Reports vomiting Genitourinary: Genitourinary: Denies dysuria Musculoskeletal: Musculoskeletal: Reports back pain Integumentary/Breasts: Skin/Breast: Denies rash Neurologic: Denies Abnormal speech present Psychiatric: Psychiatric: Denies behavioral changes [facility] Past Medical History Medical History (Updated 01/30/23 @ 15:15 by Jeremy Boyce MD) Allergic rhinitis Anxiety Bipolar affect, depressed IUD (intrauterine device) in place Leukocytosis RUQ pain Sciatica of right side Surgical History Surgical History No history of previous surgery Family History Family History Other Family history of suicide Social History Social History Smoking status: Never smoker Alcohol intake: never Substance use: never Substance use type: does not use Lack of Transportation: No Lack of Food: Never True Current Housing: I Have Housing Concerned About Future Housing: No Difficulty Paying Gas/Electric Bills: No Difficulty Paying for Meds: No Currently Unemployed: No Education: High School Diploma/GED Difficulty w/ Childcare or Family Care: No Living arrangements: with family Occupation/Education: occupation Additional occupation/education comments: Daycare worker Gender identity (if verbalized by the patient): Female Spiritual care concerns: No Meds Home Medications and Allergies Home Medications Medication Instructions Recorded Confirmed Type No Home Medications 01/28/23 01/28/23 History Allergies Allergy/AdvReac Type Severity Reaction Status Date / Time oseltamivir Allergy Severe [facility]ive
[2023-01-30] MEDS: HYDROmorphone HCL INJ (*CRX) 1 MG/ML SYR IV PUSH (15:44)
[2023-01-30 20:08] VITALS: BP 120/69; PULSE 41; RESP 18; TEMP 22; TEMP 36.5; O2SAT 100
[2023-01-31] VITALS (13 sets, daily range): BP systolic 121–131; BP diastolic 74–89; PULSE 44–87; RESP 12–18; TEMP 36.1–36.9; O2SAT 96–100
[2023-01-31] MEDS: PIPERACILLN/TAZ 3.375GM/NS50ML 3.375 GM/50 ML BAG IVPB ×4 (03:53→21:40)
[2023-01-31] MEDS: DEXTROSE 5%/0.9% SOD CHL 1,000 ML 125 ML IV CONT ×2 (03:53→14:21)
[2023-01-31 07:28] LABS: Hematocrit 40.6 % (37.0-47.0); Hemoglobin 12.7 g/dL (12.0-15.0); Mean Corpuscular HGB Conc 31.3 g/dl (32-36); Mean Corpuscular Hemoglobin 28.4 pg (26-34); Mean Corpuscular Volume 90.8 fl (80-100); Mean Platelet Volume 10.4 fl (7.4-10.4); Platelet Count Result 246 k/mm3 (150-375); Red Blood Count 4.47 M/mm3 (4.2-5.4); Red Cell Distribution Width 13.6 % (11.5-14.5); White Blood Count 5.3 K/mm3 (4.5-10.0)
[2023-01-31 07:45] LABS: Alanine Aminotransferase 449 U/L (6-35); Albumin Level 3.6 g/dL (3.5-5.1); Alkaline Phosphatase 158 U/L (38-126); Anion Gap 4 mmol/L (8-16); Aspartate Amino Transferase 104 U/L (14-36); Bilirubin,Total 2.2 mg/dL (0.2-1.3); Calcium 8.2 mg/dL (8.4-10.2); Carbon Dioxide 27 mmol/L (22-30); Chloride 109 mmol/L (98-107); Estimated CRCL calculation 136 ml/min; Estimated Glomerular Filt Rate > 60; Glucose 131 mg/dL (65-110); Lipase 70 U/L (23-300); Magnesium 1.9 mg/dL (1.6-2.3); Potassium 3.3 mmol/L (3.4-5.0); Sodium 140 mmol/L (137-145)
[2023-01-31] MEDS: HYDROmorphone HCL INJ (*CRX) 1 MG/ML SYR 0.5 MG IV PUSH (08:15)
[2023-01-31] MEDS: FAMOTIDINE 20 MG/2 ML VIAL IV PUSH ×2 (08:17→20:05)
--- NOTE | 2023-01-31 08:36 | WPDPN ---
Progress Note: A&P Assessment and Plan (1) Acute cholecystitis due to biliary calculus: Code(s): K80.00 - Calculus of gallbladder with acute cholecystitis without obstruction Status: Acute Assessment and Plan: I have recommended that we proceed with a laparoscopic cholecystectomy, possible open cholecystectomy, possible proper cholangiogram today to treat her do cholecystitis. has seen her and does not recommend pre cholecystectomy ERCP. Would try to go ahead and do a cholangiogram during the surgery but if it is unsuccessful then ERCP can be done postoperatively if indicated. Risks, benefits, indications, and expected outcomes were discussed with the patient and/or family members. Specific risks to include bleeding and possible need for blood transfusion, infection, bile leak, injury to other organs, common bile duct injury, and conversion to open cholecystectomy has been discussed. I have answered all their questions and they agreed to proceed with surgery as outlined above. Continue her IV antibiotics for now. Will get her consent done keep her NPO until surgery later today. Subjective Date/time seen: 01/31/23 08:36 Interval history: Continues to have some mild right upper quadrant pain today. No nausea or vomiting. She has been kept NPO since midnight but did tolerate some clear liquids yesterday. She had an MRCP performed yesterday showing gallstones and some mild gallbladder wall thickening consistent with acute cholecystitis. There was some mild dilatation of common bile duct but no common bile duct stone was seen. She was then seen by Dr. Motta from and he did not feel that an ERCP preoperatively was indicated at this time. Liver enzymes are slightly down trending in terms of her AST and ALT but her bilirubin has remained stable at 2.2 over 2 days. Review of Systems Review of Systems: The remainder of the review of systems to include constitutional, HEENT, cardiovascular, respiratory, GI, , integumentary, musculoskeletal, endocrine, immunologic, hematologic, psychiatric, and neurologic are all negative except for which is mentioned above in the HPI. Exam Narrative: The abdomen is soft and nondistended. She has some mild tenderness to deep palpation right upper quadrant over the area the gallbladder. The gallbladder is not palpable. She has what appears to be possibly a mild fungal rash her umbilicus. There is no fungal rash underneath her breasts. Resp: Effort & Inspection: normal respiratory effort Auscultation: clear to auscultation bilaterally Cardio: Rate: regular rate Rhythm: regular rhythm Neuro: Speech: normal speech Motor exam (neuro): 5/5 motor strength present throughout Sensory Exam: normal sensation Psych: Mental Status: mental status grossly normal Affect: normal affect Objective Data Vital Signs Vital Signs: Vital Signs - 24 hr 01/30/23 13:20 01/30/23 20:08 01/31/23 06:00 Temperature 36.4 C L 36.5 C 36.7 C Pulse Rate 46 L 41 L 57 L Respiratory Rate 12 18 18 Blood Pressure 120/75 120/69 131/79 Pulse Oximetry 100 100 99 Intake/Output Intake/Output: Intake & Output 01/28/23 01/29/23 01/30/23 01/31/23 22:59 23:59 23:59 23:59 Intake Total 2200 1050 Output Total 150 2 Balance 0 1048 Meds/Results Medications: Active Medications Generic Name Dose Route Start Last Admin Trade Name Freq PRN Reason Stop Dose Admin Famotidine 20 mg 01/29/23 21:00 01/31/23 08:17 Famotidine 20 Mg/2 Ml Vial IV PUSH 20 mg Q12HR KOREY Administration Hydromorphone HCl 0.5 mg 01/29/23 16:44 01/31/23 08:15 Hydromorphone Hcl Inj (*Crx) 1 Mg/Ml Syr IV PUSH 0.5 mg Q4HR PRN Administration Pain Rated 4-6 Hydromorphone HCl 1 mg 01/29/23 20:08 01/30/23 15:44 Hydromorphone Hcl Inj (*Crx) 1 Mg/Ml Syr IV PUSH 1 mg Q4HR PRN Administration Pain Rated 7-10 Piperacillin/Tazobactam/Dextrose 3.375 gm in 50 mls @ 100 mls/hr 01/18
[2023-01-31 09:01] LABS: Blood Urea Nitrogen < 2 mg/dL (7-17)
[2023-01-31] MEDS: POTASSIUM CHLORIDE INJ 40 MEQ in SODIUM CHLORIDE 0.9% IV 500 ML 130 MEQ IVPB (09:34)
--- NOTE | 2023-01-31 14:11 | PM.IMPN ---
Progress Note: A&P Assessment and Plan (1) Acute cholecystitis: Code(s): K81.0 - Acute cholecystitis Status: Acute Assessment and Plan: Admit to regular medical floor Started on Zosyn General surgery consult 01/31/2023 iterval history: patient with right upper quadrant pain had MRCP did not show any stone in the bile duct however gallbladder there is edema, patient is seen by surgery service, patient clinical symptoms are improved her pain is better not as nauseated, may start the patient clear liquid, surgery has consulted GI to further evaluate for ERCP, and further recommendation to follow. today patient seen by surgery service plan to have a cholecystectomy today, Feels better today intermittent pain.on 01/30 leukocytosis seemed improving however today climbing and Nausea present. RT Upper quadrant pain AST ALT has increased, . No history of alcohol use. Lipase is normal. (2) Bipolar affect, depressed: Qualifiers: Current episode severity: moderate Qualified Code(s): F31.32 - Bipolar disorder, current episode depressed, moderate Code(s): F31.30 - Bipolar disorder, current episode depressed, mild or moderate severity, unspecified Status: Acute Assessment and Plan: Stable (3) Left lower lobe pneumonia: Code(s): J18.9 - Pneumonia, unspecified organism Status: Acute Assessment and Plan: Chest x-ray was clear Seen on CT of abdomen and pelvis Currently on Zosyn Plan Her right upper quadrant pain intermittent for a week increased yesterday with leukocytosis. CT abdomen with periportal edema gallbladder sludge. Highly suspect acute cholecystitis. Now with increased liver enzymes. Will check right upper quadrant ultrasound today. Continue on NPO. Hold Tylenol. Continue morphine and Zofran. IV antibiotics is Zosyn Elevated liver enzymes worsened today check hepatitis panel. Tylenol. Right upper quadrant ultrasound today Left lower lobe pneumonia seen on CT chest x-ray was clear continue on Zosyn no respiratory symptoms Nine bipolar disorder current medications at home DVT prophylaxis Lovenox Code status full code Subjective Date/time seen: 01/31/23 14:11 01/31/2023 iterval history: patient with right upper quadrant pain had MRCP did not show any stone in the bile duct however gallbladder there is edema, patient is seen by surgery service, patient clinical symptoms are improved her pain is better not as nauseated, may start the patient clear liquid, surgery has consulted GI to further evaluate for ERCP, and further recommendation to follow. today patient seen by surgery service plan to have a cholecystectomy today, Feels better today intermittent pain.on 01/30 leukocytosis seemed improving however today climbing and Nausea present. RT Upper quadrant pain AST ALT has increased, . No history of alcohol use. Lipase is normal. Review of Systems Review of Systems: All systems reviewed & are unremarkable except as noted in HPI and below Objective Data Vital Signs Vital Signs: Vital Signs - 24 hr 01/30/23 20:08 01/31/23 06:00 01/31/23 08:00 Temperature 97.7 F 98.0 F Pulse Rate 41 L 57 L Respiratory Rate 18 18 Blood Pressure 120/69 131/79 Pulse Oximetry 100 99 Oxygen Delivery Room Air Intake/Output Intake/Output: Intake & Output 01/28/23 01/29/23 01/30/23 01/31/23 22:59 23:59 23:59 23:59 Intake Total 2200 1050 Output Total 150 2 Balance 2050 1048 Meds/Results Medications: Active Medications Generic Name Dose Route Start Last Admin Trade Name Freq PRN Reason Stop Dose Admin Famotidine 20 mg 01/29/23 21:00 01/31/23 08:17 Famotidine 20 Mg/2 Ml Vial IV PUSH 20 mg Q12HR KOREY Administration Hydromorphone HCl 0.5 mg 01/29/23 16:44 01/31/23 08:15 Hydromorphone Hcl Inj (*Crx) 1 Mg/Ml Syr IV PUSH 0.5 mg Q4HR PRN Administration Pain Rated 4-6 Hydromorphone HCl 1 mg 01/29/23 20:08 01/30/23 15:44 Hy
--- NOTE | 2023-01-31 14:40 | WPDHPUPDATE1 ---
History and Physical Update Update Date/Time: 01/31/23 14:40 History and Physical has been reviewed, including an updated exam of the patient. There are NO changes in the patient's condition. Risks, benefits, and alternatives have been discussed and questions answered. Patient agrees to proceed with procedure.
--- NOTE | 2023-01-31 14:41 | WPDHPUPDATE1 ---
History and Physical Update Update Date/Time: 01/31/23 14:41 History and Physical has been reviewed, including an updated exam of the patient. There are NO changes in the patient's condition. Risks, benefits, and alternatives have been discussed and questions answered. Patient agrees to proceed with procedure.
--- NOTE | 2023-01-31 16:34 | WPDGIPROGNO ---
Progress Note: A&P Assessment and Plan (1) Acute cholecystitis due to biliary calculus: Code(s): K80.00 - Calculus of gallbladder with acute cholecystitis without obstruction Status: Acute Assessment and Plan: on abx and will undergo cholecystectomy today mrcp did not show stone (2) RUQ pain: Code(s): R10.11 - Right upper quadrant pain Status: Acute (3) Elevated liver enzymes: Code(s): R74.8 - Abnormal levels of other serum enzymes Status: Acute Assessment and Plan: transaminases trending down probably already passed stone (MRCP without stones or filling defect) she can have IOC during surgery to assess bile duct (4) Leukocytosis: Code(s): D72.829 - Elevated white blood cell count, unspecified Status: Acute Assessment and Plan: resolved Subjective Date/time seen: 01/31/23 16:34 Interval history: similar pain, no major changes Review of Systems Review of Systems: All systems reviewed & are unremarkable except as noted in HPI and below Exam Const: General: comfortable HENMT: Face/Nose/Sinus: Normal nares present Eyes: General: appearance normal, both eyes and all related structures Neck: Neck: supple Resp: Effort & Inspection: normal respiratory effort Cardio: Rate: regular rate GI: GI Palp: Yes Soft to palpation and Yes Tenderness to palpation present (GI) (ruq pain, no rebound) Auscultation: normal bowel sounds Skin: General skin exam: normal color Neuro: Speech: normal speech Motor exam (neuro): 5/5 motor strength present throughout Extrem: General: normal to inspection Psych: Affect: normal affect Objective Data Vital Signs Vital Signs: Vital Signs - 24 hr 01/30/23 20:08 01/31/23 06:00 01/31/23 08:00 Temperature 97.7 F 98.0 F Pulse Rate 41 L 57 L Respiratory Rate 18 18 Blood Pressure 120/69 131/79 Pulse Oximetry 100 99 Oxygen Delivery Room Air 01/31/23 14:00 Temperature 98.5 F Pulse Rate 54 L Respiratory Rate 16 Blood Pressure 131/89 Pulse Oximetry 100 Oxygen Delivery Intake/Output Intake/Output: Intake & Output 01/28/23 01/29/23 01/30/23 01/31/23 22:59 23:59 23:59 23:59 Intake Total 0 2100 Output Total 150 2 Balance 2049 2097 Meds/Results Medications: Active Medications Generic Name Dose Route Start Last Admin Trade Name Freq PRN Reason Stop Dose Admin Famotidine 20 mg 01/29/23 21:00 01/31/23 08:17 Famotidine 20 Mg/2 Ml Vial IV PUSH 20 mg Q12HR KOREY Administration Hydromorphone HCl 0.5 mg 01/29/23 16:44 01/31/23 08:15 Hydromorphone Hcl Inj (*Crx) 1 Mg/Ml Syr IV PUSH 0.5 mg Q4HR PRN Administration Pain Rated 4-6 Hydromorphone HCl 1 mg 01/29/23 20:08 01/30/23 15:44 Hydromorphone Hcl Inj (*Crx) 1 Mg/Ml Syr IV PUSH 1 mg Q4HR PRN Administration Pain Rated 7-10 Piperacillin/Tazobactam/Dextrose 3.375 gm in 50 mls @ 100 mls/hr 01/29/23 04:00 01/31/23 15:11 Zosyn 3.375 Gm/Ns 50 Ml IVPB 100 mls/hr Q6H KOREY Administration Dextrose/Sodium Chloride 1,000 mls @ 125 mls/hr 01/29/23 17:35 01/31/23 14:21 Dextrose 5% Sodium Chloride 0.9% IV CONT 125 mls/hr .Q8H KOREY Administration Ketorolac Tromethamine 15 mg 01/29/23 16:46 01/30/23 12:53 Ketorolac 15 Mg/Ml Vial (*Bkc) IV PUSH 15 mg Q6H PRN Administration Mild Pain (1-3) Ondansetron HCl 4 mg 01/28/23 21:00 01/29/23 09:32 Ondansetron Inj 4 Mg/2 Ml Vial IV PUSH 4 mg Q4H PRN Administration Nausea Radiology Results: ITS Impressions Chest X-Ray 01/28/23 18:30 Impression: Normal chest. Abdomen/Pelvis CT 01/28/23 20:22 Impression: Suspected focal left lower lobe pneumonia. Gallbladder sludge. Periportal edema, nonspecific. Upper Quadrant Ultrasound 01/29/23 14:41 Impression: Cholelithiasis and gallbladder sludge. Mildly dilated common bile duct. Consider MRCP as indicated. MRCP
[2023-01-31] MEDS: LACTATED RINGERS 1,000 ML 30 ML IV CONT ×2 (16:36→18:57)
--- NOTE | 2023-01-31 16:50 | WPDANESEPPF ---
Anes - Initial Pre Proc Eval Procedure: Operation Date: 01/31/23 16:00 Proposed Procedures p Laparoscopic Cholecystectomy, Possible Open, Possible Intra Operative Cholangiogram - Gael Booth MD Date/Time: 01/31/23 16:50 Surgeon: Rodrigo Mendez MD Pre Op Diagnosis: cholecystitis Patient Data Age: 22 Gender: F Height: 1.65 m Weight: 88.6 kg Last Vital Signs Temp 36.1 C L 01/31/23 16:36 Pulse 44 L 01/31/23 16:36 Resp 18 01/31/23 16:36 BP 123/83 01/31/23 16:36 Pulse Ox 100 01/31/23 16:36 O2 Del Method Room Air 01/31/23 16:36 Allergies Allergy/AdvReac Type Severity Reaction Status Date / Time oseltamivir Allergy Severe Hives Verified 01/28/23 18:07 sulfamethoxazole Allergy Mild Hives Verified 01/28/23 18:07 trimethoprim Allergy Mild Hives Verified 01/28/23 18:07 sulfamethizole Allergy Unknown possibly Verified 01/28/23 18:07 latex Allergy Rash Verified 01/28/23 18:07 Home Medications Medication Instructions Recorded Confirmed Type No Home Medications 01/28/23 01/28/23 History Laboratory Tests 01/31/23 01/31/23 07:11 07:11 WBC 5.3 K/mm3 K/mm3 (4.5-10.0) RBC 4.47 M/mm3 M/mm3 (4.2-5.4) Hgb 12.7 g/dL g/dL (12.0-15.0) Hct 40.6 % % (37.0-47.0) MCV 90.8 fl fl (80-100) MCH 28.4 pg pg (26-34) MCHC 31.3 g/dl L g/dl (32-36) RDW 13.6 % % (11.5-14.5) Plt Count 246 k/mm3 k/mm3 (150-375) MPV 10.4 fl fl (7.4-10.4) Sodium 140 mmol/L mmol/L (137-145) Potassium 3.3 mmol/L L mmol/L (3.4-5.0) Chloride 109 mmol/L H mmol/L (98-107) Carbon Dioxide 27 mmol/L mmol/L (22-30) Anion Gap 4 mmol/L L mmol/L (8-16) BUN < 2 mg/dL L mg/dL (7-17) Creatinine 0.60 mg/dL L mg/dL (0.7-1.0) Estim Creat Clear Calc 136 ml/min ml/min Estimated GFR > 60 (59 - ) Glucose 131 mg/dL H mg/dL (65-110) Calcium 8.2 mg/dL L mg/dL (8.4-10.2) Magnesium 1.9 mg/dL mg/dL (1.6-2.3) Total Bilirubin 2.2 mg/dL H mg/dL (0.2-1.3) AST 104 U/L H U/L (14-36) ALT 449 U/L H U/L (6-35) Alkaline Phosphatase 158 U/L H U/L (38-126) Total Protein 6.0 g/dL L g/dL (6.3-8.2) Albumin 3.6 g/dL g/dL (3.5-5.1) Lipase 70 U/L U/L (23-300) Patient hx anesthesia problems: none Family hx anesthesia problems: none Results Review: All pre-operative results and documents have been reviewed as part of the pre-operative evaluation. FORMERLY [facility] Past Medical History Medical History (Updated 01/31/23 @ 16:51 by Tate Rinaldi MD) Allergic rhinitis Anxiety Bipolar affect, depressed IUD (intrauterine device) in place Leukocytosis Obesity RUQ pain Sciatica of right side Surgical History Surgical History No history of previous surgery Family History Family History Other Family history of suicide Social History Social History Smoking status: Never smoker Alcohol intake: never Substance use: never Substance use type: does not use Lack of Transportation: No Lack of Food: Never True Current Housing: I Have Housing Concerned About Future Housing: No Difficulty Paying Gas/Electric Bills: No Difficulty Paying for Meds: No Currently Unemployed: No Education: High School Diploma/GED Difficulty w/ Childcare or Family Care: No Living arrangements: with family Occupation/Education: occupation Additional occupation/education comments: Daycare worker Gender identity (if verbalized by the patient): Female Spiritual care concerns: No Anes - Eval Final PreProcedure Day of Procedure 01/31/23 16:50 Patient weight: obese Heart: regular rate and rhythm Lungs: clear to auscultation Airway: Mallampati s
[2023-01-31] MEDS: LIDO 1%/EPINEPHRINE 1:100,000 20 ML VIAL INFILTRATE (17:29)
[2023-01-31] MEDS: BUPivacaine HCL 0.5% PF 30 ML VIAL 10 ML INFILTRATE (18:34)
--- NOTE | 2023-01-31 18:56 | W.PM.PROC2 ---
Procedure Note - Detailed Date of Procedure 01/31/23 Pre-op Diagnosis cholecystitis Post-op Diagnosis Other (Acute cholecystitis secondary to cholelithiasis, common bile duct obstruction likely due to gallstone) Procedure Performed Laparoscopic cholecystectomy with intraoperative cholangiogram Surgeon Geal Booth MD [employer] Amairani ORTIZ Anesthesia General Indications Patient is a 22-year-old female presented with a several month history of right upper quadrant abdominal pain which was worse on the day of admission. She had radiation of pain to her back and had pain which was worse with eating fatty and spicy foods. Emergency room workup showed a distended gallbladder with some mild gallbladder wall thickening and mild dilation of the common bile duct. No common bile duct stone was seen on follow-up MRCP but she did have elevated liver enzymes with a total bilirubin as high as 2.2. She was evaluated by GI and given the negative MRCP for common bile duct stone it was thought that she may have passed a stone. She is being brought to the operating now for a laparoscopic cholecystectomy with intraoperative cholangiogram. Findings Acute inflammation of the gallbladder without gallbladder wall necrosis. Mild to moderate dilation of the common bile duct on intraoperative cholangiogram with mild dilation of the intrahepatic ducts. Obstruction at the distal common bile duct with a crescent sign suggestive of distal common bile duct retained gallstone. No passage of contrast was noted into the duodenum. Description of Procedure After informed consent was obtained the patient was brought to the operating room where she is placed in supine position and general endotracheal anesthesia was administered. The abdomen was then prepped and draped in usual sterile fashion. A time-out was then performed correctly identifying the patient as well as procedure to be performed and verified that she was already on scheduled IV antibiotics. For started by entering the abdomen left upper quadrant utilizing a 5mm Optiview port with a direct optical insertion. Once inside the abdomen insufflated to adequate pneumoperitoneum of 15mmHg CO2. There were no adhesions in the area around the umbilicus so then under direct visualization I placed a 5mm infraumbilical trocar port. Laparoscopic was then switched to this infraumbilical trocar port looking into the upper portions of the abdomen and could see that the gallbladder was distended with edema of the gallbladder wall and some mild gallbladder wall thickening. There were some adhesions of the omentum to the gallbladder wall but there was no necrosis of the gallbladder wall. I then proceeded to place additional laparoscopic ports to include a 12mm epigastric trocar port and 2 more 5mm right subcostal trocar ports all under direct visualization. The gallbladder was so with a laparoscopic grasper at the dome and elevated over the right half liver towards the right shoulder. A 2nd grasper used to hold the gallbladder at the infundibulum. I then proceeded to strip down the omental adhesions to the infundibular gallbladder bluntly without difficulty. I then proceeded to dissect out what I felt was the cystic duct and the structure was dissected out circumferentially. The cystic artery was identified and dissected out circumferentially as well. Posterior wall the gallbladder at the infundibulum dissected free of the liver into the critical view was obtained. I then proceeded to perform an intraoperative cholangiogram. The Mendez clamp was placed across the infundibular gallbladder. The cholangiocatheter was advanced through the catheter port and a Mendez clamp and then it was used to marcelino the infundibular gallbladder. I then flushed the catheter with saline solution and is seen to flow freely into the cystic duct without any leaking. I then brought the C-arm over the patient and then proceeded to inject strength Visipaqu
[2023-01-31] MEDS: fentaNYL CITRATE INJ (*CRX) 100 MCG/2 ML VIAL 25 MCG IV PUSH ×2 (19:16→19:22)
--- NOTE | 2023-01-31 21:29 | PC.NURSE ---
1930 PT RECIEVED FROM PACU PER BED. VOICES NO C/O
[2023-01-31] MEDS: HYDROmorphone HCL INJ (*CRX) 1 MG/ML SYR IV PUSH (22:27)
[2023-02-01] VITALS (13 sets, daily range): BP systolic 114–150; BP diastolic 68–92; PULSE 43–65; RESP 12–24; TEMP 36.4–37.2; O2SAT 94–100
[2023-02-01] MEDS: PIPERACILLN/TAZ 3.375GM/NS50ML 3.375 GM/50 ML BAG IVPB ×4 (03:36→23:07)
[2023-02-01] MEDS: DEXTROSE 5%/0.9% SOD CHL 1,000 ML 125 ML IV CONT ×3 (03:36→17:45)
[2023-02-01] MEDS: HYDROmorphone HCL INJ (*CRX) 1 MG/ML SYR IV PUSH ×3 (03:39→11:55)
[2023-02-01 05:39] LABS: Hematocrit 42.2 % (37.0-47.0); Hemoglobin 13.5 g/dL (12.0-15.0); Mean Corpuscular Hemoglobin 28.5 pg (26-34); Mean Corpuscular Volume 89.2 fl (80-100); Platelet Count Result 295 k/mm3 (150-375); Red Blood Count 4.73 M/mm3 (4.2-5.4); Red Cell Distribution Width 13.4 % (11.5-14.5); White Blood Count 9.1 K/mm3 (4.5-10.0)
[2023-02-01 05:41] LABS: Alanine Aminotransferase 348 U/L (6-35); Albumin Level 3.8 g/dL (3.5-5.1); Alkaline Phosphatase 159 U/L (38-126); Anion Gap 5 mmol/L (8-16); Aspartate Amino Transferase 79 U/L (14-36); Bilirubin,Total 2.7 mg/dL (0.2-1.3); Calcium 8.3 mg/dL (8.4-10.2); Carbon Dioxide 29 mmol/L (22-30); Chloride 107 mmol/L (98-107); Estimated CRCL calculation 136 ml/min; Estimated Glomerular Filt Rate > 60; Glucose 154 mg/dL (65-110); Lipase 39 U/L (23-300); Magnesium 1.8 mg/dL (1.6-2.3); Potassium 3.7 mmol/L (3.4-5.0); Sodium 141 mmol/L (137-145)
[2023-02-01] MEDS: ONDANSETRON INJ 4 MG/2 ML VIAL IV PUSH ×3 (07:48→15:39)
[2023-02-01 08:43] LABS: Blood Urea Nitrogen < 2 mg/dL (7-17)
[2023-02-01] MEDS: FAMOTIDINE 20 MG/2 ML VIAL IV PUSH ×2 (09:44→22:15)
[2023-02-01] MEDS: oxyCODONE HCL (*CRX) 5 MG TAB IR PO (09:47)
--- NOTE | 2023-02-01 11:38 | WPDANESPN ---
Anes - Prog Note Post-Op Date/Time: 02/01/23 11:38 Cardiovascular status: normal Respiratory status: normal Airway patency: baseline Mental status: baseline Post-Op hydration status: normal Vital Signs: Last Vital Signs Temp 36.8 C 02/01/23 03:51 Pulse 50 L 02/01/23 03:51 Resp 17 02/01/23 03:51 BP 117/73 02/01/23 03:51 Pulse Ox 97 02/01/23 03:51 O2 Del Method Room Air 02/01/23 08:00 O2 Flow Rate 6 01/31/23 19:10 Pain Score (VAS): 0 I/O: Intake & Output 01/31/23 02/01/23 02/01/23 23:59 07:59 15:59 Intake Total 1150 50 Output Total 2600 1300 Balance -1450 -1250 Laboratory Tests 02/01/23 05:16 02/01/23 05:16 02/01/23 02/01/23 05:16 05:16 WBC 9.1 RBC 4.73 Hgb 13.5 Hct 42.2 MCV 89.2 MCH 28.5 MCHC 32.0 RDW 13.4 Plt Count 295 MPV 10.0 Sodium 141 Potassium 3.7 Chloride 107 Carbon Dioxide 29 Anion Gap 5 L BUN < 2 L Creatinine 0.60 L Estim Creat Clear Calc 136 Estimated GFR > 60 Glucose 154 H Calcium 8.3 L Magnesium 1.8 Total Bilirubin 2.7 H AST 79 H ALT 348 H Alkaline Phosphatase 159 H Total Protein 7.0 Albumin 3.8 Lipase 39 Post-procedural complaints: none Patient Feedback: Patient satisfied with anesthetic care.
--- NOTE | 2023-02-01 12:33 | PM.PNGS ---
Progress Note: A&P Assessment and Plan (1) Acute cholecystitis due to biliary calculus: Code(s): K80.00 - Calculus of gallbladder with acute cholecystitis without obstruction Status: Acute Assessment and Plan: S/p laparoscopic cholecystectomy with IOC yesterday by Dr. Booth. IOC showed obstruction of the distal common bile duct, likely stone although not initially seen on the MRCP. Total bilirubin up to 2.7 today. She is having some cramping abdominal pain today with an episode of vomiting. Improved with Dilaudid and Zofran. GI scheduled an ERCP this afternoon, keep NPO with IV fluids and will await ERCP results. Continue IV Zosyn. (2) Biliary obstruction: Code(s): K83.1 - Obstruction of bile duct Status: Acute Assessment and Plan: ERCP today Plan I have discussed the patient's case and plan of care with Dr. Booth. Subjective Subjective Date/Time Seen: 02/01/23 12:33 Patient reports: still having pain, voiding w/o difficulty, nausea, vomiting and afebrile Interval history: Patient seen this afternoon. She is NPO today for ERCP. She reports some upper abdominal cramping pain that feels like gas pains. Different than the pain she had prior to surgery. Her pain was more severe earlier and she has some vomiting. She felt it was related to the severity of her pain. She did not have any nausea or vomiting last night. She has received some IV Dilaudid and her pain is much better and her nausea has resolved as her pain improved. No other complaints at this time. Exam Const: General: comfortable, no acute distress and awake Orientation/consciousness: patient oriented x3 GI: Inspection: non-distended and incision (incisions dry and glue intact) GI Palp: Yes Soft to palpation, Yes Tenderness to palpation present (GI) (RUQ and epigastrum near incisions), No Guarding due to palpation present (GI) and No Hernia present Auscultation: normal bowel sounds Neuro: General: moves all extremities and no focal motor deficits Extrem: General: no calf tenderness and no edema Psych: Mental Status: mental status grossly normal Insight: Good insight present (Psych) Objective Data Vital Signs Vital Signs: Vital Signs - 24 hr 01/31/23 14:00 01/31/23 16:36 01/31/23 18:57 Temperature 98.5 F 97.0 F L 97.4 F L Pulse Rate 54 L 44 L 87 Respiratory Rate 16 18 12 Blood Pressure 131/89 123/83 129/89 Pulse Oximetry 100 100 97 Oxygen Delivery Room Air Simple Face Mask Oxygen Flow Rate 6 01/31/23 19:10 01/31/23 19:25 01/31/23 19:37 Temperature Pulse Rate 75 81 56 L Respiratory Rate 13 18 15 Blood Pressure 124/75 121/85 121/82 Pulse Oximetry 100 100 97 Oxygen Delivery Simple Face Mask Room Air Room Air Oxygen Flow Rate 6 01/31/23 19:05 01/31/23 19:30 01/31/23 20:00 Temperature 97.8 F 98.3 F 98.0 F Pulse Rate 51 L 51 L 54 L Respiratory Rate 17 18 17 Blood Pressure 123/74 126/74 128/77 Pulse Oximetry 98 100 96 Oxygen Delivery Oxygen Flow Rate 01/31/23 20:05 01/31/23 20:20 01/31/23 21:30 Temperature 97.8 F 98.3 F 98.3 F Pulse Rate 51 L 51 L 57 L Respiratory Rate 17 18 17 Blood Pressure 123/74 126/74 128/84 Pulse Oximetry 98 100 98 Oxygen Delivery Oxygen Flow Rate 02/01/23 03:51 02/01/23 08:00 Temperature 98.3 F Pulse Rate 50 L Respiratory Rate 17 Blood Pressure 117/73 Pulse Oximetry 97 Oxygen Delivery Room Air Oxygen Flow Rate Intake/Output Intake/Output: Intake & Output 01/29/23 01/30/23 01/31/23 02/01/23 23:59 23:59 23:59 23:59 Intake Total 2200 3300 1050 Output Total 150 2602 1300 Balance 2050 698 -250 Meds/Results Medications: Active Medications Generic Name Dose Route Start Last Admin Trade Name Freq PRN Reason Stop Dose Admin Famotidine 20 mg 01/29/23 21:00 02/01/23 09:44 Famotidine 20 Mg/2 Ml Vial IV PUSH 20 mg Q12HR KOREY Administration Hydromorphone HCl 1 mg 01/29/23 20:08 02/01/23 11:55 Hydromorphon
[2023-02-01] MEDS: LACTATED RINGERS 1,000 ML 150 ML IV CONT ×2 (13:14→15:37)
--- NOTE | 2023-02-01 13:28 | WPDANESEPPF ---
Anes - Initial Pre Proc Eval Procedure: Operation Date: 01/31/23 16:00 Proposed Procedures p Laparoscopic Cholecystectomy, Possible Open, Possible Intra Operative Cholangiogram - Gael Booth MD Operation Date: 02/01/23 14:45 Proposed Procedures p Endoscopic Retro Cholangiopancreatogram - Jeremy Boyce MD Date/Time: 02/01/23 13:28 Surgeon: Rodrigo Mendez MD Pre Op Diagnosis: cholecystitis Patient Data Age: 22 Gender: F Height: 1.65 m Weight: 88.6 kg Last Vital Signs Temp 98.3 F 02/01/23 03:51 Pulse 55 L 02/01/23 13:07 Resp 18 02/01/23 13:07 BP 114/69 02/01/23 13:07 Pulse Ox 99 02/01/23 13:07 O2 Del Method Room Air 02/01/23 13:07 O2 Flow Rate 6 01/31/23 19:10 Allergies Allergy/AdvReac Type Severity Reaction Status Date / Time oseltamivir Allergy Severe Hives Verified 01/28/23 18:07 sulfamethoxazole Allergy Mild Hives Verified 01/28/23 18:07 trimethoprim Allergy Mild Hives Verified 01/28/23 18:07 sulfamethizole Allergy Unknown possibly Verified 01/28/23 18:07 latex Allergy Rash Verified 01/28/23 18:07 Home Medications Medication Instructions Recorded Confirmed Type No Home Medications 01/28/23 01/28/23 History Laboratory Tests 02/01/23 02/01/23 05:16 05:16 WBC 9.1 K/mm3 K/mm3 (4.5-10.0) RBC 4.73 M/mm3 M/mm3 (4.2-5.4) Hgb 13.5 g/dL g/dL (12.0-15.0) Hct 42.2 % % (37.0-47.0) MCV 89.2 fl fl (80-100) MCH 28.5 pg pg (26-34) MCHC 32.0 g/dl g/dl (32-36) RDW 13.4 % % (11.5-14.5) Plt Count 295 k/mm3 k/mm3 (150-375) MPV 10.0 fl fl (7.4-10.4) Sodium 141 mmol/L mmol/L (137-145) Potassium 3.7 mmol/L mmol/L (3.4-5.0) Chloride 107 mmol/L mmol/L (98-107) Carbon Dioxide 29 mmol/L mmol/L (22-30) Anion Gap 5 mmol/L L mmol/L (8-16) BUN < 2 mg/dL L mg/dL (7-17) Creatinine 0.60 mg/dL L mg/dL (0.7-1.0) Estim Creat Clear Calc 136 ml/min ml/min Estimated GFR > 60 (59 - ) Glucose 154 mg/dL H mg/dL (65-110) Calcium 8.3 mg/dL L mg/dL (8.4-10.2) Magnesium 1.8 mg/dL mg/dL (1.6-2.3) Total Bilirubin 2.7 mg/dL H mg/dL (0.2-1.3) AST 79 U/L H U/L (14-36) ALT 348 U/L H U/L (6-35) Alkaline Phosphatase 159 U/L H U/L (38-126) Total Protein 7.0 g/dL g/dL (6.3-8.2) Albumin 3.8 g/dL g/dL (3.5-5.1) Lipase 39 U/L U/L (23-300) Patient hx anesthesia problems: none Family hx anesthesia problems: none Results Review: All pre-operative results and documents have been reviewed as part of the pre-operative evaluation. [facility] Past Medical History Medical History (Updated 02/01/23 @ 12:54 by TONIA Gutierrez) Allergic rhinitis Anxiety Bipolar affect, depressed IUD (intrauterine device) in place Leukocytosis Obesity RUQ pain Sciatica of right side Surgical History Surgical History (Updated 02/01/23 @ 08:04 by Lesley Morales MD) Hx laparoscopic cholecystectomy 01.31.23 Family History Family History Other Family history of suicide Social History Social History Smoking status: Never smoker Alcohol intake: never Substance use: never Substance use type: does not use Lack of Transportation: No Lack of Food: Never True Current Housing: I Have Housing Concerned About Future Housing: No Difficulty Paying Gas/Electric Bills: No Difficulty Paying for Meds: No Currently Unemployed: No Education: High School Diploma/GED Difficulty w/ Childcare or Family Care: No Living arrangements: with family Occupation/Education: occupation Additional occupation/education comments: Daycare worker Gender identity (if verbalized by the patient): Female Spiritual care concerns: No An
[2023-02-01] MEDS: INDOMETHACIN 50 MG SUPP.RECT RECTAL (14:03)
--- NOTE | 2023-02-01 14:07 | SUR.OPER ---
Lead wrapped around pt's abdomen/pelvis for ERCP.
--- NOTE | 2023-02-01 14:11 | PM.IMPN ---
Progress Note: A&P Assessment and Plan (1) Biliary obstruction: Code(s): K83.1 - Obstruction of bile duct Status: Acute (2) Bipolar affect, depressed: Qualifiers: Current episode severity: moderate Qualified Code(s): F31.32 - Bipolar disorder, current episode depressed, moderate Code(s): F31.30 - Bipolar disorder, current episode depressed, mild or moderate severity, unspecified Status: Acute (3) Nausea & vomiting: Code(s): R11.2 - Nausea with vomiting, unspecified Status: Acute Plan Her right upper quadrant pain intermittent for a week increased yesterday with leukocytosis. CT abdomen with periportal edema gallbladder sludge. Highly suspect acute cholecystitis. Now with increased liver enzymes. Will check right upper quadrant ultrasound today. Continue on NPO. Hold Tylenol. Continue morphine and Zofran. IV antibiotics is Zosyn Elevated liver enzymes worsened today check hepatitis panel. Tylenol. Right upper quadrant ultrasound today Left lower lobe pneumonia seen on CT chest x-ray was clear continue on Zosyn no respiratory symptoms Nine bipolar disorder current medications at home DVT prophylaxis Lovenox Code status full code 02/01/2023 interval history:?patient with right upper quadrant pain had MRCP did not show any stone in the bile duct however gallbladder there is edema, patient is seen by surgery service, patient clinical symptoms are improved her pain is better not as nauseated, may start the patient clear liquid, surgery has consulted GI to further evaluate for ERCP, and further recommendation to follow. on 02/01 patient was seen by surgery service and patient had cholecystectomy, also had IOC and there is concern for stone in the duct, patient feels nauseated and has abdominal pain patient was seen by GI and scheduled for ERCP possibly extract the stone in the duct, , on 01/30? leukocytosis seemed improving, RT? Upper quadrant pain AST ALT are trending down, .? No history of alcohol use.? Lipase is normal. Subjective Date/time seen: 02/01/23 14:11 02/01/2023 interval history:?patient with right upper quadrant pain had MRCP did not show any stone in the bile duct however gallbladder there is edema, patient is seen by surgery service, patient clinical symptoms are improved her pain is better not as nauseated, may start the patient clear liquid, surgery has consulted GI to further evaluate for ERCP, and further recommendation to follow. on 02/01 patient was seen by surgery service and patient had cholecystectomy, also had IOC and there is concern for stone in the duct, patient feels nauseated and has abdominal pain patient was seen by GI and scheduled for ERCP possibly extract the stone in the duct, , on 01/30? leukocytosis seemed improving, RT? Upper quadrant pain AST ALT are trending down, .? No history of alcohol use.? Lipase is normal. Exam Narrative: morbidly obese Patient is comfortable, NAD HEENT: eyes are clear and none icteric LUNGS: normal respiratory effort ABD: distended Lower extremities: no edema SKIN: nonjaundiced Neuro: grossly intact. Objective Data Vital Signs Vital Signs: Vital Signs - 24 hr 01/31/23 16:36 01/31/23 18:57 01/31/23 19:10 Temperature 97.0 F L 97.4 F L Pulse Rate 44 L 87 75 Respiratory Rate 18 12 13 Blood Pressure 123/83 129/89 124/75 Pulse Oximetry 100 97 100 Oxygen Delivery Room Air Simple Face Mask Simple Face Mask Oxygen Flow Rate 6 6 01/31/23 19:25 01/31/23 19:37 01/31/23 19:05 Temperature 97.8 F Pulse Rate 81 56 L 51 L Respiratory Rate 18 15 17 Blood Pressure 121/85 121/82 123/74 Pulse Oximetry 100 97 98 Oxygen Delivery Room Air Room Air Oxygen Flow Rate 01/31/23 19:30 01/31/23 20:00 01/31/23 20:05 Temperature 98.3 F 98.0 F 97.8 F Pulse Rate 51 L 54 L 51 L Respiratory Rate 18 17 17 Blood Pressure 126/74 128/77 123/74 Pulse Oximetry 100 96 98 Oxygen Delivery Oxygen Flow Rate
[2023-02-01 15:47] LABS: GGT 128 U/L (3-40)
--- NOTE | 2023-02-01 15:56 | SUR.OPER ---
Family in recovery updated on pt procedure.
[2023-02-02] MEDS: DEXTROSE 5%/0.9% SOD CHL 1,000 ML 125 ML IV CONT ×2 (03:21→12:24)
[2023-02-02] MEDS: PIPERACILLN/TAZ 3.375GM/NS50ML 3.375 GM/50 ML BAG IVPB ×3 (04:40→15:22)
[2023-02-02 04:51] VITALS: BP 124/74; PULSE 54; RESP 17; TEMP 36.8; O2SAT 98
[2023-02-02] MEDS: ONDANSETRON INJ 4 MG/2 ML VIAL IV PUSH (05:37)
[2023-02-02 05:51] LABS: Hematocrit 43.3 % (37.0-47.0); Hemoglobin 14.1 g/dL (12.0-15.0); Mean Corpuscular HGB Conc 32.6 g/dl (32-36); Mean Corpuscular Hemoglobin 28.5 pg (26-34); Mean Corpuscular Volume 87.7 fl (80-100); Mean Platelet Volume 9.6 fl (7.4-10.4); Platelet Count Result 319 k/mm3 (150-375); Red Blood Count 4.94 M/mm3 (4.2-5.4); Red Cell Distribution Width 13.8 % (11.5-14.5)
[2023-02-02 06:07] LABS: Alanine Aminotransferase 264 U/L (6-35); Alkaline Phosphatase 192 U/L (38-126); Anion Gap 4 mmol/L (8-16); Aspartate Amino Transferase 51 U/L (14-36); Bilirubin,Total 1.9 mg/dL (0.2-1.3); Blood Urea Nitrogen 2 mg/dL (7-17); Calcium 8.7 mg/dL (8.4-10.2); Carbon Dioxide 29 mmol/L (22-30); Chloride 105 mmol/L (98-107); Estimated CRCL calculation 118 ml/min; Estimated Glomerular Filt Rate > 60; Glucose 119 mg/dL (65-110); Lipase 174 U/L (23-300); Magnesium 1.6 mg/dL (1.6-2.3); Potassium 3.5 mmol/L (3.4-5.0); Sodium 138 mmol/L (137-145)
[2023-02-02 08:36] VITALS: RESP 18; O2SAT 98
[2023-02-02] MEDS: FAMOTIDINE 20 MG/2 ML VIAL IV PUSH (08:36)
--- NOTE | 2023-02-02 11:05 | WPDANESPN ---
Anes - Prog Note Post-Op Date/Time: 02/02/23 10:26 Cardiovascular status: normal Respiratory status: normal Airway patency: baseline Mental status: baseline Post-Op hydration status: normal Vital Signs: Last Vital Signs Temp 98.2 F 02/02/23 04:51 Pulse 54 L 02/02/23 04:51 Resp 18 02/02/23 08:36 BP 124/74 02/02/23 04:51 Pulse Ox 98 02/02/23 08:36 O2 Del Method Room Air 02/02/23 08:36 O2 Flow Rate 4 02/01/23 16:46 Pain Score (VAS): 0 I/O: Intake & Output 02/01/23 02/02/23 02/02/23 23:59 07:59 15:59 Intake Total 1999 1300 50 Output Total 500 Balance 1999 800 50 Laboratory Tests 02/02/23 05:38 02/02/23 05:38 01/29/23 02/02/23 02/02/23 04:58 05:38 05:38 WBC 7.0 RBC 4.94 Hgb 14.1 Hct 43.3 MCV 87.7 MCH 28.5 MCHC 32.6 RDW 13.8 Plt Count 319 MPV 9.6 Sodium 138 Potassium 3.5 Chloride 105 Carbon Dioxide 29 Anion Gap 4 L BUN 2 L Creatinine 0.70 Estim Creat Clear Calc 118 Estimated GFR > 60 Glucose 119 H Calcium 8.7 Magnesium 1.6 Total Bilirubin 1.9 H GGT 128 H AST 51 H ALT 264 H Alkaline Phosphatase 192 H Total Protein 7.0 Albumin 4.0 Lipase 174 Post-procedural complaints: none Patient Feedback: Patient satisfied with anesthetic care.
--- NOTE | 2023-02-02 12:38 | PM.PNGS ---
Progress Note: A&P Assessment and Plan (1) Acute cholecystitis due to biliary calculus: Code(s): K80.00 - Calculus of gallbladder with acute cholecystitis without obstruction Status: Acute Assessment and Plan: Postop day 2 laparoscopic cholecystectomy with IOC. Patient doing well from a surgical standpoint. Okay to advance to a low-fat diet. Cramping abdominal pain she was having yesterday has resolved and only having some incisional soreness that is well controlled. If the patient is able to tolerate her diet today, then it is okay from our standpoint to discharge her home. She will need to follow-up with Dr. Booth in 2 weeks. Continue a low fat diet. (2) Biliary obstruction: Code(s): K83.1 - Obstruction of bile duct Status: Acute Assessment and Plan: S/p ERCP yesterday with successful removal of common duct stone. LFTs trending down. Lipase normal this morning. Plan I have discussed the patient's case and plan of care with Dr. Booth. Subjective Subjective Date/Time Seen: 02/02/23 10:38 Post Op day: 2 (laparoscopic cholecystectomy with IOC) Patient reports: no new complaints, feels better, pain is less, voiding w/o difficulty, flatus, bowel movement (this am), vomiting and afebrile Interval history: Patient had ERCP yesterday with successful removal of common duct stone. Reports her abdominal pain has improved today and now feels like soreness at her incisions. She did have more vomiting early this morning, but reports it was just small amounts of mucus. She reports noticing some sinus drainage and feels it is gagging her causing her to spit this up. No nausea this morning. She tolerated her breakfast well and has not had any more vomiting. She is passing flatus and had a BM this morning. Tolerating activity well. Review of Systems Review of Systems: All systems reviewed & are unremarkable except as noted in HPI and below Exam Const: General: comfortable, no acute distress and awake Orientation/consciousness: patient oriented x3 GI: Inspection: non-distended and incision (incisions dry and intact) GI Palp: Yes Soft to palpation, Yes Tenderness to palpation present (GI) (expected mild incisional tenderness) and No Guarding due to palpation present (GI) Auscultation: normal bowel sounds Neuro: General: moves all extremities and no focal motor deficits Extrem: General: no calf tenderness and no edema Psych: Mental Status: mental status grossly normal Insight: Good insight present (Psych) Objective Data Vital Signs Vital Signs: Vital Signs - 24 hr 02/01/23 13:07 02/01/23 16:16 02/01/23 16:26 Temperature 97.9 F Pulse Rate 55 L 65 55 L Respiratory Rate 18 24 H 19 Blood Pressure 114/69 137/85 137/89 Pulse Oximetry 99 100 99 Oxygen Delivery Room Air Simple Face Mask Simple Face Mask Oxygen Flow Rate 8 8 02/01/23 16:36 02/01/23 16:46 02/01/23 16:56 Temperature Pulse Rate 46 L 45 L 54 L Respiratory Rate 22 H 18 15 Blood Pressure 129/90 139/86 142/82 H Pulse Oximetry 99 100 98 Oxygen Delivery Simple Face Mask Simple Face Mask Room Air Oxygen Flow Rate 4 4 02/01/23 17:06 02/01/23 17:16 02/01/23 17:30 Temperature 97.6 F Pulse Rate 50 L 51 L 58 L Respiratory Rate 15 16 12 Blood Pressure 142/84 H 150/92 H 141/82 H Pulse Oximetry 94 98 97 Oxygen Delivery Room Air Room Air Oxygen Flow Rate 02/01/23 19:23 02/01/23 21:24 02/01/23 23:59 Temperature 97.6 F 98.5 F 98.9 F Pulse Rate 54 L 49 L 43 L Respiratory Rate 16 17 17 Blood Pressure 117/71 119/79 120/68 Pulse Oximetry 95 96 95 Oxygen Delivery Oxygen Flow Rate 02/01/23 20:00 02/02/23 04:51 02/02/23 08:36 Temperature 98.2 F Pulse Rate 54 L Respiratory Rate 17 18 Blood Pressure 124/74 Pulse Oximetry 98 98 Oxygen Delivery Room Air Room Air Oxygen Flow Rate Intake/Output Intake/Output: Intake & Output 01/30/23 01/31/23 02/01/23 02/02/23 23:59 23:59 23:
--- NOTE | 2023-02-02 13:30 | PC.NURSE ---
On 02/02/23, the student, [Celeste Davis], provided care and completed [facility] documentation on this patient. I have reviewed the student's documentation and agree with the findings.
[2023-02-02 14:00] VITALS: BP 127/76; PULSE 50; RESP 16; TEMP 36.6; O2SAT 100
--- NOTE | 2023-02-02 14:22 | PC.NURSE ---
On 02/02/23, the student, [Bismark Solorzano], provided care and completed [facility] documentation on this patient. I have reviewed the student's documentation and agree with the findings.
--- NOTE | 2023-02-02 16:40 | PM.DS ---
DS: Admitting Diagnosis Discharge Date 02/02/2023 Admitting Diagnosis Right upper quadrant pain DS: Discharge Diagnosis Discharge Diagnosis (1) Biliary obstruction: Code(s): K83.1 - Obstruction of bile duct Status: Acute (2) Bipolar affect, depressed: Qualifiers: Current episode severity: moderate Qualified Code(s): F31.32 - Bipolar disorder, current episode depressed, moderate Code(s): F31.30 - Bipolar disorder, current episode depressed, mild or moderate severity, unspecified Status: Acute (3) Nausea & vomiting: Code(s): R11.2 - Nausea with vomiting, unspecified Status: Acute Plan Her right upper quadrant pain intermittent for a week increased yesterday with leukocytosis. CT abdomen with periportal edema gallbladder sludge. Highly suspect acute cholecystitis. Now with increased liver enzymes. Will check right upper quadrant ultrasound today. Continue on NPO. Hold Tylenol. Continue morphine and Zofran. IV antibiotics is Zosyn Elevated liver enzymes worsened today check hepatitis panel. Tylenol. Right upper quadrant ultrasound today Left lower lobe pneumonia seen on CT chest x-ray was clear continue on Zosyn no respiratory symptoms Nine bipolar disorder current medications at home DVT prophylaxis Lovenox Code status full code 02/01/2023 interval history:?patient with right upper quadrant pain had MRCP did not show any stone in the bile duct however gallbladder there is edema, patient is seen by surgery service, patient clinical symptoms are improved her pain is better not as nauseated, may start the patient clear liquid, surgery has consulted GI to further evaluate for ERCP, and further recommendation to follow. on 02/01 patient was seen by surgery service and patient had cholecystectomy, also had IOC and there is concern for stone in the duct, patient feels nauseated and has abdominal pain patient was seen by GI and scheduled for ERCP possibly extract the stone in the duct, , on 01/30? leukocytosis seemed improving, RT? Upper quadrant pain AST ALT are trending down, .? No history of alcohol use.? Lipase is normal. DS: Summary Hospital Course Reason for hospitalization: Right upper quadrant pain Narrative: This is a 22-year-old female past medical history significant for bipolar affect, generalized anxiety disorder, obesity.? Patient presents to the emergency room due to right upper quadrant pain, nausea, no vomiting, night sweats, chills.? Patient denies any cough, sputum production.? Workup was significant for leukocytosis of 16,[address] of abdomen and pelvis was reported as: Findings:? Scans through the lung bases demonstrate focal airspace disease at the left lung base, suspicious for focal pneumonia.. There is mild periportal edema, nonspecific. Liver is otherwise unremarkable. Gallbladder sludge present. The spleen, pancreas, adrenals and kidneys are within normal limits.? No evidence of aortic aneurysm.? No lymphadenopathy. No bowel obstruction or bowel wall thickening. There is no evidence to suggest acute appendicitis. Images through the pelvis were performed. Urinary bladder unremarkable. No adnexal mass seen. No ascites. Impression: Suspected focal left lower lobe pneumonia. Gallbladder sludge. Periportal edema, nonspecific. Patient is been admitted for further evaluation management and treatment. Hospital Course: patient with right upper quadrant pain had MRCP did not show any stone in the bile duct however gallbladder there is edema, patient is seen by surgery service, patient clinical symptoms are improved her pain is better not as nauseated, may start the patient clear liquid, surgery has consulted GI to further evaluate for ERCP, and further recommendation to follow. on 02/01 patient was seen by surgery service and patient had cholecystectomy, also had IOC and there is concern for stone in the duct, patient feels nauseated and has abdominal pain? patient was seen by GI and sc
--- NOTE | 2023-02-02 17:51 | WPDGIPROGNO ---
Progress Note: A&P Assessment and Plan (1) Acute cholecystitis due to biliary calculus: Code(s): K80.00 - Calculus of gallbladder with acute cholecystitis without obstruction Status: Acute Assessment and Plan: s/p kelly and yesterday ercp after abnormal IOC, finally able to remove stone (difficult to cannulate) she is doing much better and going home today (2) Elevated liver enzymes: Code(s): R74.8 - Abnormal levels of other serum enzymes Status: Acute Assessment and Plan: trending down (3) Choledocholithiasis: Code(s): K80.50 - Calculus of bile duct without cholangitis or cholecystitis without obstruction Status: Acute Assessment and Plan: removed after sphincterotomy (4) Nausea & vomiting: Code(s): R11.2 - Nausea with vomiting, unspecified Status: Acute Assessment and Plan: resolved Subjective Date/time seen: 02/02/23 17:51 Interval history: doing much better, no more pain and tolerated diet. ERCP yesterday difficult but finally able to cannulate and removed stone. Review of Systems Review of Systems: All systems reviewed & are unremarkable except as noted in HPI and below Exam Const: General: comfortable, no acute distress and awake Orientation/consciousness: patient oriented x3 HENMT: Face/Nose/Sinus: Normal nares present Eyes: Sclera: sclerae normal Neck: Neck: supple Resp: Effort & Inspection: normal respiratory effort Cardio: Rate: regular rate GI: Inspection: non-distended and incision (incisions dry and intact) GI Palp: Yes Soft to palpation, Yes Tenderness to palpation present (GI) (minimal pain, improved) and No Guarding due to palpation present (GI) Auscultation: normal bowel sounds Neuro: General: moves all extremities and no focal motor deficits Extrem: General: no calf tenderness and no edema Psych: Mental Status: mental status grossly normal Insight: Good insight present (Psych) Objective Data Vital Signs Vital Signs: Vital Signs - 24 hr 02/01/23 19:23 02/01/23 21:24 02/01/23 23:59 Temperature 97.6 F 98.5 F 98.9 F Pulse Rate 54 L 49 L 43 L Respiratory Rate 16 17 17 Blood Pressure 117/71 119/79 120/68 Pulse Oximetry 95 96 95 Oxygen Delivery 02/01/23 20:00 02/02/23 04:51 02/02/23 08:36 Temperature 98.2 F Pulse Rate 54 L Respiratory Rate 17 18 Blood Pressure 124/74 Pulse Oximetry 98 98 Oxygen Delivery Room Air Room Air 02/02/23 14:00 Temperature 97.8 F Pulse Rate 50 L Respiratory Rate 16 Blood Pressure 127/76 Pulse Oximetry 100 Oxygen Delivery Intake/Output Intake/Output: Intake & Output 01/30/23 01/31/23 02/01/23 02/02/23 23:59 23:59 23:59 23:59 Intake Total 2200 3300 3100 2620 Output Total 150 2602 1300 500 Balance 2050 698 1800 2120 Meds/Results Medications: Active Medications Generic Name Dose Route Start Last Admin Trade Name Freq PRN Reason Stop Dose Admin Famotidine 20 mg 01/29/23 21:00 02/02/23 08:36 Famotidine 20 Mg/2 Ml Vial IV PUSH 20 mg Q12HR KOREY Administration Hydromorphone HCl 1 mg 01/29/23 20:08 02/01/23 11:55 Hydromorphone Hcl Inj (*Crx) 1 Mg/Ml Syr IV PUSH 1 mg Q4HR PRN Administration Pain Rated 7-10 Piperacillin/Tazobactam/Dextrose 3.375 gm in 50 mls @ 100 mls/hr 01/29/23 04:00 02/02/23 15:52 Zosyn 3.375 Gm/Ns 50 Ml IVPB Infused Q6H KOREY Infusion Dextrose/Sodium Chloride 1,000 mls @ 125 mls/hr 01/29/23 17:35 02/02/23 15:52 Dextrose 5% Sodium Chloride 0.9% IV CONT 125 mls/hr .Q8H KOREY Infusion Ondansetron HCl 4 mg 01/28/23 21:00 02/02/23 05:37 Ondansetron Inj 4 Mg/2 Ml Vial IV PUSH 4 mg Q4H PRN Administration Nausea Ondansetron HCl 4 mg 01/31/23 16:50 Ondansetron Inj 4 Mg/2 Ml Vial IV PUSH ONCE PRN Nausea Oxycodone HCl 5 mg 01/31/23 19:40 02/01/23 09:47 Oxycodone Hcl (*Crx) 5 Mg Tab Ir PO 5 mg Q4H PRN Administration Pain Rated 7-1
== END 2023-02-02 17:50 | disposition home or self-care (01) | DRG 263 ==
LOC: ANHED 21:21 → ANH2MED 22:20
PROVIDERS: Internal Medicine; Internal Medicine Gastroenterology; Surgery; Admitting Provider Internal Medicine; Emergency Provider Emergency Medicine; PCP Family Medicine; Visit Provider Family Medicine
PROC: 0FT44ZZ Resection of Gallbladder, Percutaneous Endoscopic Approach (ICD-10-PCS; CPT 47562; principal; 2023-01-31 16:00)
PROC: (CPT 43260; principal; 2023-02-01 14:45)
DX: K80.63 Calculus of gallbladder and bile duct with acute cholecystitis with obstruction (principal); F31.30 Bipolar disorder, current episode depressed, mild or moderate severity, unspecified; Z88.2 Allergy status to sulfonamides; Z91.040 Latex allergy status
CPT/HCPCS: 36415; 71045; 74177; 74183; 74300; 74329; 76376; 76705; 80053; 80074; 81001; 81025; 82948; 82977; 83605; 83690; 83735; 84484; 85025; 85027; 86850; 86900; 86901; 87040; 88304; 93005; 96361; 96365; 96366; 96374; 96375; 96376; 99285; A9270; A9577; C1713; G0378; G0379; J0131; J0330; J1100; J1170; J1885; J2250; J2405; J2543; J2704; J2710; J3010; J3480; J7030; J7040; J7042; J7120; Q9967

== ENCOUNTER 2024-01-10 16:45 | Emergency (ER) | payer OTHER, SELFPAY ==
--- NOTE | ~2024-01-10 | CT_ITS ---
EXAMINATION: CT abdomen pelvis w con DATE: 01/10/2024 19:04 INDICATION: Upper abdominal pain. Nausea and vomiting. TECHNIQUE: Computed tomography (CT) of the abdomen and pelvis was performed with 100 mL Omnipaque 350 intravenous contrast. Automated exposure control and iterative reconstruction technique were employe d. The dose-length product was 642.47 mGy-cm. COMPARISON: CT abdomen and pelvis 01/28/2023 FINDINGS: The visualized portions of the lung bases demonstrate mild atelectasis. No pleural effusion . The heart size is normal. No pericardial effusion. The liver and spleen are normal. There are dior es of cholecystectomy. The pancreas, adrenal glands, and kidneys are normal. There is a 2.7 cm fibroi d in the uterus. There are no dilated loops of bowel. The appendix is normal. There are no pathologic ally enlarged lymph nodes. There is no free intraperitoneal fluid. There is mild thoracic and lumbar spondylosis. IMPRESSION: 1. Uterine fibroid. Reviewed, dictated and finalized at location E. [employer] IMPRESSION: 1. Uterine fibroid.
[2024-01-10 16:56] VITALS: BP 118/75; PULSE 70; RESP 20; TEMP 36.9; O2SAT 100
--- NOTE | 2024-01-10 17:33 | ED.ABDPAIN ---
HPI - Abdominal Pain General Chief Complaint: Abdominal Pain Stated Complaint: ABD PAIN [id number] Time Seen by Provider: 01/10/24 17:09 Source: patient Mode of arrival: ambulatory Limitations: no limitations History of Present Illness HPI narrative: Patient is a 23-year-old female who presents the ED with report of upper abdominal pain. Patient reports pain first began on and was associated with a fever up to 101.2F. States pain began after eating at a restaurant. She also reported having nausea and vomiting at that time. Pain, nausea, vomiting has since persisted. States she has been unable to keep down any food over the last 2 days. She has been able to tolerate some water. Denies further fevers. Denies diarrhea. Reports small daily bowel movements, ashy in color. Denies urinary complaints. Related Data Allergies Allergy/AdvReac Type Severity Reaction Status Date / Time oseltamivir Allergy Severe Hives Verified 01/10/24 17:08 sulfamethoxazole Allergy Mild Hives Verified 01/10/24 17:08 trimethoprim Allergy Mild Hives Verified 01/10/24 17:08 sulfamethizole Allergy Unknown possibly Verified 01/10/24 17:08 latex Allergy Rash Verified 01/10/24 17:08 Review of Systems Review of Systems: CONSTITUTIONAL: See HPI CARDIOVASCULAR: Denies chest pain. RESPIRATORY: Denies dyspnea. GASTROINTESTINAL: See HPI GENITOURINARY: Denies dysuria or hematuria. MUSCULOSKELETAL: Denies back pain, extremity pain, myalgia. All systems reviewed & are unremarkable except as noted in HPI and below PMFSH Past Medical History Medical History Allergic rhinitis Anxiety Bipolar affect, depressed Choledocholithiasis IUD (intrauterine device) in place Leukocytosis Obesity RUQ pain Sciatica of right side Surgical History Surgical History Hx laparoscopic cholecystectomy 3. Family History Family History Other Family history of suicide Social History Social History Smoking status: Never smoker Alcohol intake: never Substance use: never Substance use type: does not use Lack of Transportation: No Lack of Food: Never True Current Housing: I Have Housing Concerned About Future Housing: No Difficulty Paying Gas/Electric Bills: No Difficulty Paying for Meds: No Currently Unemployed: No Education: High School Diploma/GED Difficulty w/ Childcare or Family Care: No Living arrangements: with family Occupation/Education: occupation Additional occupation/education comments: Daycare worker Gender identity (if verbalized by the patient): Female Spiritual care concerns: No Exam Narrative: GENERAL: Well appearing, well-nourished, non-toxic, in no acute distress. HEAD: Normocephalic, atraumatic. RESPIRATORY: Airway patent, respirations nonlabored. Clear to auscultation bilaterally, no rales, rhonchi, wheezing. CARDIOVASCULAR: Regular rate and rhythm ABDOMINAL: Soft, epigastric and RUQ tenderness to palpation, nondistended. Normoactive BS. MUSCULOSKELETAL: Moves all extremities. No gross deformities. SKIN: Warm, dry, normal color. NEURO: A&O X3. Speech clear. PSYCHIATRIC: Appropriate mood and affect. Normal interaction. Course Vital Signs Vital signs: Vital Signs Temperature 98.5 F 01/10/24 16:56 Pulse Rate 70 01/10/24 16:56 Respiratory Rate 20 01/10/24 16:56 Blood Pressure 118/75 01/10/24 16:56 Pulse Oximetry 100 01/10/24 16:56 Oxygen Delivery Room Air 01/10/24 16:56 Temperature 98.5 F 01/10/24 16:56 Pulse Rate 52 L 01/10/24 20:00 Respiratory Rate 16 01/10/24 20:00 Blood Pressure 105/75 01/10/24 20:00 Pulse Oximetry 100 01/10/24 20:00 Oxygen Delivery Room Air 01/10/24 16:56 MDM - Abdominal Pain
[2024-01-10 17:37] LABS: Basophils Absolute Auto 0.1 K/mm3 (0.0-0.1); Basophils Percent Auto 0.5 % (0.2-1.2); Eosinophils Absolute Auto 0.1 K/mm3 (0-0.3); Eosinophils Percent Auto 0.7 % (0-4.4); Hematocrit 43.8 % (37.0-47.0); Hemoglobin 14.1 g/dL (12.0-15.0); Immature Granulocyte Absolute 0.02 K/mm3 (0.00-0.031); Immature Granulocyte Percent A 0.2 % (0-0.5); Lymphocytes Absolute Auto 3.09 K/mm3 (0.9-3.2); Lymphocytes Percent Auto 32.2 % (18.3-44.2); Mean Corpuscular HGB Conc 32.2 g/dl (32-36); Mean Corpuscular Hemoglobin 29.4 pg (26-34); Mean Corpuscular Volume 91.4 fl (80-100); Mean Platelet Volume 9.9 fl (7.4-10.4); Monocytes Absolute Auto 0.6 K/mm3 (0.1-0.6); Monocytes Percent Auto 5.7 % (2.6-8.5); Neutrophils Absolute Auto 5.8 K/mm3 (1.3-6.7); Neutrophils Percent Auto 60.7 % (45.5-73.1); Platelet Count Result 263 k/mm3 (150-375); Red Blood Count 4.79 M/mm3 (4.2-5.4); Red Cell Distribution Width 13.3 % (11.5-14.5); White Blood Count 9.6 K/mm3 (4.5-10.0)
[2024-01-10 17:45] LABS: Appearance Urine Turbid (Clear); Bacteria Urine None Seen /hpf; Bilirubin Urine Negative (Negative); Blood Urine Negative (Negative); Color Urine Yellow (Yellow); Glucose Urine UA Negative (Negative); Ketones Urine Negative (Negative); Leukocyte Esterase Ur Negative LEU/UL (Negative); Nitrate Urine Negative (Negative); Non Pathogenic Casts 0-2; Protein Urine Negative (Negative); Squamous Epithelial Cell Urine Few /hpf (Few); Urobilinogen Urine 0.2 mg/dL (<2.0); WBC Urine 0-5 /hpf
[2024-01-10 17:52] LABS: Add Urine Microscopic? YES
[2024-01-10] MEDS: FAMOTIDINE 20 MG/2 ML VIAL IV PUSH (17:57)
[2024-01-10] MEDS: SODIUM CHLORIDE 0.9% IV 1,000 ML 999 ML IV CONT (17:57)
[2024-01-10] MEDS: MORPHINE SULFATE (*CRX) 4 MG/ML INJ IV PUSH (17:57)
[2024-01-10] MEDS: ONDANSETRON INJ 4 MG/2 ML VIAL IV PUSH (17:57)
[2024-01-10 18:26] LABS: Influenza A QL RT-PCR Negative (Negative); Influenza B QL RT-PCR Negative (Negative); RSV RNA, RT-PCR Negative (Negative); SARS-CoV-2 RNA PCR Negative (Negative)
[2024-01-10 18:47] LABS: Alanine Aminotransferase 14 U/L (6-35); Albumin Level 4.1 g/dL (3.5-5.1); Alkaline Phosphatase 71 U/L (38-126); Anion Gap 10 mmol/L (8-16); Aspartate Amino Transferase 23 U/L (14-36); Bilirubin,Total 0.4 mg/dL (0.2-1.3); Blood Urea Nitrogen 12 mg/dL (7-17); Calcium 9.1 mg/dL (8.4-10.2); Carbon Dioxide 22 mmol/L (22-30); Chloride 107 mmol/L (98-107); Estimated CRCL calculation 128 ml/min; Estimated Glomerular Filt Rate > 60; Glucose 85 mg/dL (65-110); Lipase 65 U/L (23-300); Potassium 3.7 mmol/L (3.4-5.0); Sodium 139 mmol/L (137-145)
[2024-01-10] MEDS: BELLADONNA ALK/PHENOB ELIX 10 ML, MAG HYDROX/ALUMINUM HYD/SIMETH 30 ML, LIDOCAINE HCL 2... PO (19:20)
[2024-01-10 20:00] VITALS: BP 105/75; PULSE 52; RESP 16; O2SAT 100
== END 2024-01-10 20:02 | disposition home or self-care (01) ==
PROVIDERS: Emergency Provider Physician Assistant; PCP Family Medicine
DX: R10.13 Epigastric pain (principal); R11.2 Nausea with vomiting, unspecified; Z20.822 Contact with and (suspected) exposure to COVID-19; F41.9 Anxiety disorder, unspecified
CPT/HCPCS: 36415; 74177; 80053; 81001; 81025; 83690; 85025; 87637; 96361; 96374; 96375; 99284; A9270; J2270; J2405; J7030; Q9967

== ENCOUNTER 2024-02-21 12:17 | Emergency (ER) | payer SELFPAY ==
--- NOTE | 2024-02-21 12:36 | ED.URI ---
HPI - URI/Sore Throat General Chief Complaint: Fever Stated Complaint: Fever Time Seen by Provider: 02/21/24 12:36 Source: patient Mode of arrival: ambulatory Limitations: no limitations History of Present Illness HPI Narrative: Patient is a 23-year-old female who presents with fever starting Monday with high of 101. Patient also having body aches, headache, nausea, vomiting, diarrhea, congestion and cough. Patient had COVID last month. Patient has had multiple negative COVID tests. Patient has been using omeprazole and Zofran but is still unable to keep food down. Patient has had positive flu exposure. Related Data Home Medications Medication Instructions Recorded Confirmed Nexplanon 1 device implant DAILY 02/21/24 02/21/24 Allergies Allergy/AdvReac Type Severity Reaction Status Date / Time oseltamivir Allergy Severe Hives Verified 02/21/24 12:19 sulfamethoxazole Allergy Mild Hives Verified 02/21/24 12:19 trimethoprim Allergy Mild Hives Verified 02/21/24 12:19 sulfamethizole Allergy Unknown possibly Verified 02/21/24 12:19 latex Allergy Rash Verified 02/21/24 12:19 Review of Systems Review of Systems: All systems reviewed & are unremarkable except as noted in HPI and below Constitutional: Constitutional: Reports body ache(s), Denies chills, Denies fatigue, Reports fever(s), Reports headache(s), Denies malaise and Denies weakness Eyes: Eyes: Denies blurry vision, Denies itchy eyes and Denies loss of vision ENT: Denies otalgia, Denies headache(s), Reports nasal congestion, Denies sinus pain and Denies sore throat Cardiovascular: Cardiovascular: Denies chest pain, Denies irregular heart rhythm and Denies dyspnea Respiratory: Respiratory: Reports cough and Denies dyspnea Gastrointestinal: Gastrointestinal: Denies abdominal pain, Reports diarrhea, Reports nausea and Reports vomiting Musculoskeletal: Musculoskeletal: Denies back pain, Reports myalgias and Denies arthralgias Integumentary/Breasts: Skin/Breast: Denies pruritus and Denies rash Neurologic: Reports headache(s), Denies loss of vision and Denies weakness Psychiatric: Psychiatric: Reports no additional psychiatric complaints Endocrine: Endocrine: Denies fatigue Allergic/Immunologic: Allergic/Immunologic: Denies itchy eyes PMFSH Past Medical History Medical History Allergic rhinitis Anxiety Bipolar affect, depressed Choledocholithiasis IUD (intrauterine device) in place Leukocytosis Obesity RUQ pain Sciatica of right side Surgical History Surgical History Hx laparoscopic cholecystectomy 3. Family History Family History Other Family history of suicide Social History Social History Smoking status: Never smoker Alcohol intake: never Substance use: never Substance use type: does not use Lack of Transportation: No Lack of Food: Never True Current Housing: I Have Housing Concerned About Future Housing: No Difficulty Paying Gas/Electric Bills: No Difficulty Paying for Meds: No Currently Unemployed: No Education: High School Diploma/GED Difficulty w/ Childcare or Family Care: No Living arrangements: with family Occupation/Education: occupation Additional occupation/education comments: Daycare worker Gender identity (if verbalized by the patient): Female Spiritual care concerns: No Comments At time of signature, agree with nursing past medical, surgical, social and family history. There is no relevant family history pertinent to the presenting complaint. Exam Const: General: cooperative, healthy appearing, comfortable, no acute distress and well nourished Nutritional Appearance: well nourished Orientation/consciousness: patient oriented x3 Limitations: no limitations HEN
[2024-02-21 12:40] VITALS: BP 104/64; PULSE 88; RESP 16; TEMP 37.2; O2SAT 100
== END 2024-02-21 13:15 | disposition home or self-care (01) ==
PROVIDERS: Emergency Provider Nurse Practitioner Family; PCP Family Medicine
DX: B34.9 Viral infection, unspecified (principal); E66.9 Obesity, unspecified; Z68.28 Body mass index [BMI] 28.0-28.9, adult
CPT/HCPCS: 87804; 99213; G0463

== ENCOUNTER 2025-04-02 15:50 | Emergency (ER) | payer SELFPAY ==
--- NOTE | ~2025-04-02 | XR_ITS ---
XR hand RT min 3V Ordering provider: Ivette Ratliff PA-C History: . fall . Comparison: None. FINDINGS: BONES: No acute fracture or dislocation. JOINT SPACES: Normal. SOFT TISSUES: Normal. IMPRESSION: No acute osseous abnormality right hand. Reviewed, dictated and finalized at location A.
--- NOTE | ~2025-04-02 | XR_ITS ---
EXAMINATION: XR wrist RT min 3V DATE: 04/02/2025 16:16 INDICATION: Right wrist injury post fall TECHNIQUE: Posteroanterior, ulnar deviation, oblique, and lateral views of the right wrist were obtai ed[place]. COMPARISON: none FINDINGS: Alignment is normal. No fracture. Joint spaces are normal. Soft tissues are unremarkable. IMPRESSION: 1. Negative right wrist radiographs. Reviewed, dictated and finalized at location A.
--- OUTSIDE RECORDS SUMMARY | 2025-04-02 15:53 | XMS_ITS | Data Portability ---
Author Organization [facility] Address [address] [place] [address] [place] [address] Care Team Providers Care Car Body Inspector Name Role Phone LESLEY MORALES Primary Care Provider Assessment Encounter Date Assessment Date Assessment LastModified by Organization Details LastModified Time 07/31/2023 07/31/2023 Annual gynecological exam performed. Patient will come back in a year unless there are new symptoms. formerly [facility] Not available 07/31/2023 09:36:44 Plan of Treatment Reminders Order Date Submit Date Provider Last Modified By Organization Details Last Modified Time Details Appointments None recorded . Lab pregnanc y test, urine 2022 023 [email or web address] [facility], [address], [place], [address], 3 10:14:26 Referral psychiat rist referral 2022 023 [facility], [address], [place], [address], 3 15:56:42 Procedures None recorded . Surgeries None recorded . Imaging US, transvag inal 2022 023 [email or web address] [facility], [address], [place], [address], 3 14:03:20 Medication Orders Nexplano n 68 mg subderma l implant 2022 023 [email or web address] Not available 10:15:32 Patient TargetsNo targets recorded. Patient InstructionsNo instructions recorded. Reason for Referral [facility]iatrist [facility] Referring Physician: Lizzie Vallecillo, INSTRUMENT FITTER, Encounter Date: 07/31/2023 Results Created Date Observation Date Name Description Value Unit Range Abnormal Flag Note LastModifiedBy Organization Detail LastModifiedTime 04/25/20 23 04/25/2023 CBC W/DIF F WBC 7.3 10'3/ uL 3.6-10 .2 Not Available [facility] (Lab) [address], [place], [address], 05/01/2023 20:58:11 04/25/20 23 04/25/2023 CBC W/DIF F RBC 5.27 10'6/ uL (based on docume nted legal sex) 4.10-5 .30 Not Available [facility] (Lab) [address], [place], [address], 05/01/2023 20:58:11 04/25/20 23 04/25/2023 CBC W/DIF F HGB 14.9 g/dL (based on docume nted legal sex) 11.9-1 5.8 Not Available [facility] (Lab) [address], [place], [address], 05/01/2023 20:58:11 04/25/20 23 04/25/2023 CBC W/DIF F HCT 47.6 % (based on docume nted legal sex) 37.4-4 8.3 Not Available [facility] (Lab) [address], [place], [address], 05/01/2023 20:58:11 04/25/20 23 04/25/2023 CBC W/DIF F MCV 90.3 fL 82.0-9 9.0 Not Available [facility] (Lab) [address], [place], [address], 05/01/2023 20:58:11 04/25/20 23 04/25/2023 CBC W/DIF F MCH 28.3 pg 27.0-3 3.0 Not Available [facility] (Lab) [address], [place], [address], 05/01/2023 20:58:11 04/25/20 23 04/25/2023 CBC W/DIF F MCHC 31.3 g/dL 32.0-3 6.0 low Not Available [facility] (Lab) [address], [place], [address], 05/01/2023 20:58:11 04/25/20 23 04/25/2023 CBC W/DIF F RDW 14.1 % 11.0-1 5.0 Not Available [facility] (Lab) [address], [place], [address], 05/01/2023 20:58:11 04/25/20 23 04/25/2023 CBC W/DIF F plt 355 10'3/ uL 150-45 0 Not Available [facility] (Lab) [address], [place], [address], 05/01/2023 20:58:11 04/25/20 23 04/25/2023 CBC W/DIF F MPV 10.5 fL 9.8-12 .7 Not Available [facility] (Lab) [address], [place], [address], 05/01/2023 20:58:11 04/25/20 23 04/25/2023 CBC W/DIF F NRBC's 0.0 % 0 Not Available [facility] (Lab) [address], [place], [address], 05/01/2023 20:58:11 04/25/20 23 04/25/2023 CBC W/DIF F absolute NRBCs 0.0 10'3/ uL 0 Not Available [facility] (Lab) [address] [place], [address], 05/01/2023 20:58:11 04/25/20 23 04/25/2023 CBC W/DIF F neutrophils 63.3 % 37.0-7 2.0 Not Available [facility] (Lab) [address] [place], [address], 05/01/2023 20:58:11 04/25/20 23 04/25/2023 CBC W/DIF F lymphocytes 28.7 % 16.0-4 8.0 Not Available [facility] (Lab) [address], [place], [address], 05/01/2023 20:58:11 04/25/20 23 04/25/2023 CBC W/DIF F monocytes 6.5 % 4.0-14 .0 Not Available [facility] (Lab) [address], [place], [address], 05/01/2023 20:58:11 04/25/20 23 04/25/2023 CBC W/DIF F eosinophils 0.8 % 0.0-9. 0 Not Available [facility] (Lab) [address] [facility], [place], [address], 05/01/2023 20:58:11 04/25/20 23 04/25/2023 CBC W/DIF F basophils 0.4 % 0.0-2. 0 Not Available [facility] (Lab) [address] [facility], [place], [address], 05/01/2023 20:58:11 04/25/20 23 04/25/2023 CBC W/DIF F immature granulocytes 0.3 % no define d refere nce range Not Available [facility] (Lab) [address] [place], [address], 05/01/2023 20:58:11 04/25/20 23 04/25/2023 CBC W/DIF F absolute neutrophils 4.6 10'3/ uL 1.1-6. 0 Not Available [facility] (Lab) [address] [place], [address], 05/01/2023 20:58:11 04/25/20 23 04/25/2023 CBC W/DIF F absolute lymphocytes 2.1 10'3/ uL 0.7-3. 4 Not Available [facility] (Lab) [address] [facility], [place], [address], 05/01/2023 20:58:11 04/25/20 23 04/25/2023 CBC W/DIF F absolute monocytes 0.5 10'3/ uL 0.3-1. 0 Not Available [facility] (Lab) [address] [facility], [place], [address], 05/01/2023 20:58:11 04/25/20 23 04/25/2023 CBC W/DIF F absolute eosinophils 0.1 10'3/ uL 0.0-0. 6 Not Available [facility] (Lab) [address] [facility], [place], [address], 05/01/2023 20:58:11 04/25/20 23 04/25/2023 CBC W/DIF F absolute basophils 0.0 10'3/ uL 0.0-0. 1 Not Available [facility] (Lab) [address] [facility], [place], [address], 05/01/2023 20:58:11 04/25/20 23 04/25/2023 CBC W/DIF F absolute immature granulocytes 0.0 10'3/ uL 0.00-0 .10 023 7:13 AM: P indic ates parti al resul ts on a panel have been relea sed. Addit ional resul ts will follo w. 023 7:13 AM: This resul t has been final verif ied. No addit ional or dior ed resul ts are expec miky. Not Available [facility] (Lab) [address] [facility], [place], [address], 05/01/2023 20:58:11 04/25/20 23 04/25/2023 DHEA SULFA TE DHEA-sulfate 142 ug/dL Femal e Range s Age(y ) Range (ug/d L) 10-15 34-28 0 15-20 65-36 8 20-25 148-4 07 25-35 99-34 0 35-45 61-33 7 45-55 35-25 6 55-65 19-20 5 65-75 9-246 > 75 12-15 4 Not Available [facility] (Lab) [address] [place], [address], 05/01/2023 20:58:12 04/25/20 23 04/25/2023 PROGE STERO NE progesterone 0.26 NG/mL This assay was perfo rmed using [employer] ratio n reage nts and test kits. Value s obtai edwin with other assay metho ds or kits canno t be used inter dior eay . Femal e Proge stero ne Range s: Folli cular phase 0.06- 0.89 ng/mL Ovula tion phase 0.12- 12.00 ng/mL Lutea l phase 1.83- 23.90 ng/mL Postm enopa usal< 0.05- 0.13 ng/mL Healt hy Pregn ant Women 1st Trime ster1 1.0-4 4.30 2nd Trime ster2 5.40- 83.30 3rd Trime ster5 8.70- 214.0 0 Not Available [facility] (Lab) [address] [place], [address], 05/01/2023 20:58:12 04/25/20 23 04/25/2023 PROLA CTIN prolactin, total 15.40 NG/mL 4.79-2 3.30 This assay was perfo rmed using [employer] reage nts and test kits. Value s obtai edwin with other assay metho ds or kits canno t be used inter dior eably . Not Available [facility] (Lab) [address] [place], [address], 05/01/2023 20:58:13 04/25/20 23 04/25/2023 FSH, LH, ESTRA DIOL estradiol 18.6 pg/mL This assay was perfo rmed using [employer] reage nts and test kits. Value s obtai edwin with other assay metho ds or kits canno t be used inter [facility] . Femal e Estra diol Range s: Folli cular phase 12.4- 233 pg/mL Ovula tion phase 41.0- 398 pg/mL Lutea l phase 22.3- 341 pg/mL Postm enopa usal< 5-138 pg/mL Healt hy Pregn ant Women 1st Trime ster1 54-32 43 pg/mL 2nd Trime ster1 561-2 1280 pg/mL 3rd Trime ster8 525-> 81070 pg/mL Not Available [facility] (Lab) [address] [place], [address], 05/01/2023 20:58:13 04/25/20 23 04/25/2023 FSH, LH, ESTRA DIOL FSH 8.5 mIU/m L This assay was perfo rmed using [employer] reage nts and test kits. Value s obtai edwin with other assay metho ds or kits canno t be used inter [facility] . Femal es Folli cular : 3.5-1 2.5 mIU/m L Ovula tion: 4.7-2 1.5 mIU/m L Lutea l: 1.7-7 .7 mIU/m L Postm enopa use: 25.8- 134.8 mIU/m L Not Available [facility] (Lab) [address] [place], [address], 05/01/2023 20:58:13 04/25/20 23 04/25/2023 FSH, LH, ESTRA DIOL LH 18.6 mIU/m L This assay was perfo rmed using [employer] reage nts and test kits. Value s obtai edwin with other assay metho ds or kits canno t be used inter [facility] . Femal es Mid-F ollic ular: 2.4-1 2.6 mIU/m L Mid-C ycle: 14.0- 95.6 mIU/m L Mid-L uteal : 1.0-1 1.4 mIU/m L Postm enopa use: 7.7-5 8.5 mIU/m L Not Available [facility] (Lab) [address], [place], [address], 05/01/2023 20:58:13 04/25/20 23 04/25/2023 HUMAN SEX HORMO NE RICHIE NG GLOBU FARIBA sex hormone binding globulin 52.9 nmole s/L 18.2-1 35.5 Not Available [facility] (Lab) [address] [facility], [place], [address], 05/01/2023 20:58:13 04/25/20 23 04/25/2023 TSH, REFLE X FREE T4 TSH 2.14 uIU/m L 0.30-5 .33 Not Available [facility] (Lab) [address] [facility], [place], [address], 05/01/2023 20:58:14 04/25/20 23 04/25/2023 HEMOG LOBIN A1C hemoglobin A1C 5.3 % 0-5.6 The Ameri can Diabe marcia [employer] iatio n recom mends that a prima ry goal of thera py shoul d be a HBA1C of < 7% and that physi cians shoul d reeva luate the treat ment regim en in patie nts with HBA1C value s consi stent ly > 8%. <5.7% Esther l 5.7 - 6.4% Incre ased risk for diabe marcia >=6.5 % Diagn ostic of diabe marcia <7.0% Goal of thera py >8.0% Actio n sugge sted Not Available [facility] (Lab) [address], [place], [address], 05/01/2023 20:58:14 04/25/20 23 04/25/2023 17-OH PROGE STERO NE 17-hydroxypr ogesterone, lc/MS/MS 48 NG/dL Adult Femal e Refer ence Range s for 17-Hy droxy proge stero ne: Pre-M enopa usal Mid Folli cular : 23-10 2 ng/dL Pre-M enopa usal Surge : 67-34 9 ng/dL Pre-M enopa usal Mid Lutea l: 139-4 31 ng/dL Postm enopa usal Phase : < or = 45 ng/dL Pregn kevin: First Trime ster: 78-45 7 ng/dL Secon d Trime ster: 90-35 7 ng/dL Third Trime ster: 144-5 78 ng/dL This test was devel oped and its alhaji tical perfo rmanc e reese cteri stics have been deter mined by [employer] [facility] . It has not been clear ed or appro candace by FDA. This assay has been valid ated pursu ant to the CLIA regul ation s and is used for clini kasia purpo ses. Perfo rming Organ izati on Kaleb rodrigez: Site ID: [id number] Name: Adomo sherman s/Dakota marie [facility] [place] , Addre ss: [id number] [place] [address] Direc tor: Ginny acosta MD,Ph D,KANNAN Not Available [facility] (Lab) [address] [facility], [place], [address], 05/01/2023 20:58:15 04/25/20 23 04/25/2023 TESTO STERO NE, FREE( DIALY SIS) AND TOTAL (LC/M S/MS) testosterone , total 26 NG/dL 2-45 For addit ional infor magdaleno lopez e refer to http: //car rodrigez.que stdia gnost ics.c om/fa q/Tot Dawson Chiu [facility] (This link is being provi ded for infor chepe iniguez/ educa ingrid l purpo ses only. ) This test was devel oped and its alhaji tical perfo rmanc e reese cteri stics have been deter mined by [employer]. It has not been clear ed or appro candace by the FDA. This assay has been valid ated pursu ant to the CLIA regul ation s and is used for clini kasia purpo ses. Not Available [facility] (Lab) [address] [facility], [place], [address], 05/01/2023 20:58:15 04/25/20 23 04/25/2023 TESTO STERO NE, FREE( DIALY SIS) AND TOTAL (LC/M S/MS) testosterone , free 2.9 pg/mL 0.1-6. 4 This test was devel oped and its alhaji tical perfo rmanc e reese cteri stics have been deter mined by [employer]. It has not been clear ed or appro candace by the FDA. This assay has been valid ated pursu ant to the CLIA regul ation s and is used for clini kasia purpo ses. Perfo rming Organ izati on Infor matio n: Site ID: [id number] Name: [facility]omo ostic s-[facility] Addre ss: [id number] [place] [address] Direc tor: Onesimo mcdonnell M.D. Not Available [facility] (Lab) [address] [facility], [place], [address], 05/01/2023 20:58:15 04/25/20 23 04/25/2023 pregn kevin test, urine HCG negati ve Not Available [facility] [address], [place], [address], 04/25/2023 10:40:33 09/21/20 23 09/21/2023 pregn kevin test, urine HCG negati ve Not Available [facility] [address], [place], [address], 09/21/2023 10:14:04 05/02/20 23 05/02/2023 US, radha s No observ ation record ed. [email or web address] [address], [place], [address], 05/08/2023 18:14:00 05/02/20 23 05/02/2023 US, trans vagin al No observ ation record ed. [email or web address] [facility] [address], [place], [address], 05/02/2023 13:36:57 Result Notes None recorded. Problems Name Problem SNOMED Code Status Onset Date Resolution Date Notes Provider Name and Address Organization Details Recorded Time Pregnanc y 53209885 Completed 202005/13/2022 Cecil Carlynsoto [facility] 2 12:36:37 Obesity 587856935 Completed Mild 35.6 - Weekly testing at 37 wks [facility] 12:36:30 Marginal insertio n of umbilica l cord 15762073 Completed serial growth u/s [facility] 2 12:36:30 Large for gestatio n age fetus 979770833 Completed 95% at 27w. 98% with AC >99% at 35w Cecil Carlynjuancarlosbroderickclaudia [facility] 2 12:36:30 Obesity 994638575 Active Mild 35.6 - Weekly testing at 37 wks [facility] 2 12:36:30 Problem Notes None recorded. Procedures Surgical History Date Name Laterality Status Provider Name and Address Organization Details Recorded Time 09/21/20 23 Control Implant Insertion completed DEISY Singh [address], [place], [address], [facility] 09/21/2023 10:28:48 02/02/20 23 procedure on gallbladder completed Melany Pollard [facility] 09/20/2023 09:53:51 08/01/20 22 Date of Last Pap Smear completed Pippa Lee [facility] 07/31/2023 09:37:08 04/19/20 22 SECTION (SURG) completed Chelsea Millard [facility] 04/20/2022 11:20:58 11/20/19 19 extraction of wisdom tooth completed Leonela Moreno [facility] 09/21/2023 10:13:14 Imaging Results Imaging Date Name Status LastModified by Organization Details LastModified Time 05/02/2023 US, pelvis completed [email or web address] [address], [place], [address], 05/08/2023 18:14:00 05/02/2023 US, transvaginal completed [email or web address] [place], [address], 05/02/2023 13:36:57 Procedure Notes None recorded. Medical Equipment None Reported. Allergies Allergen ID Allergen Name Allergen Category Reaction Reaction Severity Criticality Documentation Date Start Date Code Code System Note Provider Name and Address Organization Details Recorded Time 22113 latex environme nt,medica tion Not available Not available Not available 09/09/2021 54225 91 RxNorm Georgina Bains [facility] 12:02:37 32044 Tamiflu medicatio n Not available Not available Not available 09/13/2021 00091 7 RxNorm Georgina gillette, [facility] 10:06:05 11062 Cipro medicatio n Not available Not available Not available 09/13/2021 88968 3 RxNorm Georgina Bains [facility], [facility] 10:07:03 54469 sulfameth oxazole / trimethop rim medicatio n Not available Not available Not available 04/04/2022 43243 RxNorm Leonela Moreno [facility], [facility] 2 15:56:34 Medications Name Sig Start Date Stop Date Status Note LastModified by Organization Details LastModified Time hydrocodo ne 5 mg-acetam inophen 325 mg tablet 04/27 completed Not Available Not Available Not Available Nystop 100,000 unit/gram topical powder APPLY TO THE AFFECTED AREA TWICE A DAY FOR 7 DAYS 04/25 completed Not Available Not Available Not Available docusate sodium 100 mg capsule 04/27 completed Not Available Not Available Not Available ibuprofen 600 mg tablet 08/01 completed Not Available Not Available Not Available nitrofura ntoin monohydra te/macroc rystals 100 mg capsule Take 1 capsule every 12 hours by oral route. 04/08 completed Not Available Not Available Not Available 04/27 completed Not Available Not Available Not Available Nexplanon 68 mg subdermal implant Inject 1 implant by subcutan eous route. 2022 active 3 patient is here for nexplano n insert that office supplied lot [id number] Exp 07/2025 Not Available Not Available Not Available Blisovi Fe 12/09 (28) 1 mg-20 mcg (21)/75 mg (7) tablet TAKE 1 TABLET BY MOUTH EVERY DAY 09/18 completed Not Available Not Available Not Available Vitals Date Recorded Body height Body mass index (BMI) Body weight Systolic blood pressure Diastolic blood pressure Provider Name and Address Organization Details Last Updated DateTime 05/03/2023 165.1 cm 34.8 kg/m2 20894.81 g 118 mm[Hg] 77 mm[Hg] Pippa Lee [facility] 3 11:38:07 Date Recorded Body height Body mass index (BMI) Body weight Systolic blood pressure Diastolic blood pressure Provider Name and Address Organization Details Last Updated DateTime 07/31/2023 165.1 cm 30.6 kg/m2 42066 g 112 mm[Hg] 72 mm[Hg] Pippa Lee [facility] 3 09:36:58 Date Recorded Body height Body mass index (BMI) Body weight Systolic blood pressure Diastolic blood pressure Provider Name and Address Organization Details Last Updated DateTime 09/20/2023 165.1 cm 29.9 kg/m2 07215.47 g 119 mm[Hg] 76 mm[Hg] Melany Blakejuancarlos [facility] 3 09:51:23 Date Recorded Body height Body mass index (BMI) Body weight Systolic blood pressure Diastolic blood pressure Provider Name and Address Organization Details Last Updated DateTime 09/21/2023 165.1 cm 29.8 kg/m2 28124.03 g 117 mm[Hg] 74 mm[Hg] Leonela Tiffanie [facility] 3 10:05:04 Social History Question Answer Notes LastModified by Organizat ion Details LastModified Time Tobacco Smoking Status Never Smoker Georgina Bains leta, [facility] 09/13/2021 10:07:14 Do You Have An Advance Directive? No [email or web address] Information n ot available 09/13/2021 If You Are , What Was Your Level Of Alcohol Consumption Prior To ? Occasional [email or web address] Information not available 04/08/2022 How Many Years Have You Consumed Alcohol? 1 [email or web address] Information not available 09/13/2021 Are You Blind Or Do You Have Difficulty Seeing? No Information n ot available 04/01/2022 What Is Your Level Of Caffeine Consumption? Occasional Information not available 09/13/2021 How Much Tobacco Do You Chew? None [email or web address] Information not available 09/13/2021 In The 14 Days Before Symptom Onset, Have You Had Close Contact With A Laboratory-confirm ed COVID-19 While That Case Was Ill? No Information n ot available 09/13/2021 In The 14 Days Before Symptom Onset, Have You Had Close Contact With A Person Who Is Under Investigation For COVID-19 While That Person Was Ill? No [email or web address] Information not available 09/13/2021 Have You Been To An Area Known To Be High Risk For COVID-19? No [email or web address] Information not available 09/13/2021 Are You Deaf Or Do You Have Serious Difficulty Hearing? No [email or web address] Information not available 09/13/2021 What Type Of Diet Are You Following? REGULAR Information n ot available 09/13/2021 What Is The Highest Grade Or Level Of School You Have Completed Or The Highest Degree You Have Received? [id number] [email or web address] Information not available 09/13/2021 Are There Any Guns Present In Your Home? Yes Information not available 09/13/2021 Do You Use Protection During Sex? No [email or web address] Information not available 09/13/2021 Do You Use Your Seat Belt Or Car Seat Routinely? Yes [email or web address] Information not available 09/13/2021 Do You Have Smoke And Carbon Monoxide Detectors In Your Home? Yes [email or web address] Information not available 09/13/2021 How Much Tobacco Do You Smoke? No Information not available 09/13/2021 Do You Use Sunscreen Routinely? Yes [email or web address] Information not available 09/13/2021 Have You Used IV Drugs? No [email or web address] Information not available 09/13/2021 Do You Have Difficulty Walking Or Climbing Stairs? No [email or web address] Information not available 04/01/2022 Sex: Unknown Functional Status Question Answer Note LastModified by Organizat ion Details LastModified Time Do you use any illicit or recreational drugs? No [email or web address] Information not available 09/13/2021 What is your level of alcohol consumption? None [email or web address] Information not available 04/08/2022 Are you able to walk? YESWOREST [email or web address] Information not available 09/13/2021 Are you able to care for yourself? Yes [email or web address] Information not available 04/01/2022 What is your occupation? [employer] [email or web address] Information not available 09/13/2021 Do you have difficulty dressing or bathing? No [email or web address] Information not available 04/01/2022 What is your exercise level? Occasional Information not available 09/13/2021 Mental Status Question Answer Note LastModified by Organization D etails LastModified Time Do you feel stressed (tense, restless, nervous, or anxious, or unable to sleep at night)? [id number] [email or web address] Information not available 09/13/2021 Family History Relationship Description Onset Age of this Age Resolved Age Notes LastModified by Organization Details LastModified Time Father No current problems or disability Not available 09/09 12:05:30 Mother No current problems or disability Not available 09/09 12:05:30 Medical History Condition Response Allergies (Food, seasonal, environmental ) N Other N Breast Cancer N Drug/Latex Allergies/Reactions Y Blood Transfusion N Dermatologic Disorders N Lung Disease N Defects or Inherited Disease N Breast Problem N Gestational Diabetes N Hematologic disorders N Anesthesia Complications N History of STI N Deep Vein Thrombosis N Polycystic ovary syndrome N Anxiety Disorder N Autoimmune disease N Arthritis N Infertility N Polyps N Acid Reflux (GERD) N History of abnormal pap N Cancer N Stroke N Varicosities N Neurologic/Epilepsy N Endometriosis N High Cholesterol N Headaches N Fibromyalgia N Kidney Disease N Heart Problems N Kidney or Bladder Problems N Thyroid Problems N GI Problems N Eating Disorder N Anemia N Art (IVF or FET) N Psychiatric Illness N Ovarian Cancer N Diabetes N Pulmonary (TB, Asthma) N Hepatitis/Liver Disease N No Past Medical History N Eczema N Urinary Tract Infection N Abuse/Domestic Violence N Asthma N Trauma/Violence N Depression/ depression N Heart Disease N Pre-Eclampsia N Hypertension N Osteoporosis N Thrombophilias N Gynecological History Statement/Question Response Abnormal Pap N Flow Moderate Date of LMP 09/18/2023 On BCP's at Conception? N N Was last menstrual period normal Y STIs/STDs N HPV Vaccine Y Duration of Flow (days) 5 Current Control Method Implant Age at First Child 21 Are cycles usually normal Y Sexually Active? N Menses Monthly Y Age of first menstrual cycle 13 Date of Last Pap Smear 08/01/2022 Sexual Problems? N Desired Control Method Implant LMP Definite N Obstetrics History GPAL:G 1 P 1 0 0 1 Type Value Full Term 1 Living 1 Total 1 Past Encounters Encounter ID Performer Location Encounter Start Date Encounter Closed Date Diagnosis/Indication Diagnosis SNOMED-CT Code Diagnosis ICD10 Code Diagnosis Note [id number] Yari Richey CNM [facility] [address] [address] 09/13/2021 09:50:42 09/13/2021 11:26:05 test positive [id number] Z32.01 Risk factors addressed: Tobacco Cessation, Safe Sexual Practices, environmen emmanuel, work hazards, travel restrictio ns, seat belt use.Eat a health well balanced diet, avoid alcohol, tobacco, and street drugs.Enga ge in daily low impact exercise, avoid temperatur e extremes, and cat, rodent, and bird feces.Avoi d travel to areas where zika virus is a concern.Of fered cf/sma/nip t. Desires all 3. Will draw at 12 week visit. Handouts given and discussed with patient.Ch ildbirth classes recommende d.New OB sheet given.If previous , counseling .Pt verbalizes that she understand s the importance of above instructio ns.All questions were answered.P atient reminded to have annual well woman examinatio n and address [facility] . [id number] Josef Thompson MD [facility] [address],[place] [address] 09/13/2021 09:52:13 09/13/2021 11:26:54 [id number] Josef Thompson MD [facility] [address],[place] [address] 10/11/2021 09:25:23 10/11/2021 10:26:14 screening [id number] Z36.82 [id number] Josef Thompson MD [facility] [address],[place] [address] 10/11/2021 09:27:34 10/11/2021 11:06:40 Routine care [id number] Z34.91 [id number]|2025-04-02 17:10:30|2025-04-02 17:10:30|ED.[email or web address]||||"HPI - Extremity Injury (Upper) General Chief Complaint: Extremity Injury, Upper Stated Complaint: R wrist pain, fall last noc Time Seen by Provider: 04/02/25 16:33 History of Present Illness HPI narrative: 24-year-old female presents emergency department for right wrist and right hand pain for 1 day. Patient states yesterday she slipped down 5 steps and landed with her right wrist flexed. She is reporting pain, swelling and bruising to the right wrist that radiates into the right hand. She denies hitting her head or other injuries acquired. 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 She took Tylenol this morning with mild improvement. Related Data Home Medications Medication Instructions Recorded Confirmed Last Taken Type Nexplanon 1 device implant DAILY 02/21/24 02/21/24 Unknown History Allergies Allergy/AdvReac Type Severity Reaction Status Date / Time oseltamivir Allergy Severe Hives Verified 04/02/25 16:06 sulfamethoxazole Allergy Mild Hives Verified 04/02/25 16:06 trimethoprim Allergy Mild Hives Verified 04/02/25 16:06 sulfamethizole Allergy Unknown possibly Verified 04/02/25 16:06 latex Allergy Rash Verified 04/02/25 16:06 Review of Systems Review of Systems: All systems reviewed & are unremarkable except as noted in HPI and below PMFSH Past Medical History Medical History Choledocholithiasis Obesity Leukocytosis RUQ pain Anxiety Bipolar affect, depressed IUD (intrauterine device) in place Allergic rhinitis Sciatica of right side Surgical History Surgical History Hx laparoscopic cholecystectomy 3 Family History Family History Other Family history of suicide Social History Social History Smoking status: Never smoker Alcohol intake: never Substance use: never Substance use type: does not use Lack of Transportation: No Lack of Food: Never True Current Housing: I Have Housing Concerned About Future Housing: No Difficulty Paying Gas/Electric Bills: No Difficulty Paying for Meds: No Currently Unemployed: No Education: High School Diploma/GED Difficulty w/ Childcare or Family Care: No Living arrangements: with family Occupation/Education: occupation Additional occupation/education comments: Daycare worker Gender identity (if verbalized by the patient): Female Spiritual care concerns: No Exam Narrative: GENERAL: Well-appearing, well-nourished, and in no acute distress. HEAD: Normocephalic, atraumatic. EYES: EOMI. ENT: Nares clear, no rhinorrhea or epistaxis. Mucous membranes moist. NECK/BACK: No midline cervical spinous tenderness, crepitus, step-offs or deformities CHEST: Clear to auscultation. No respiratory distress. HEART: Regular rate and rhythm. No murmur heard. Normal peripheral pulses. EXTREMITIES: RUE: Tenderness to the distal radius with no obvious deformity, overlying ecchymosis to the dorsum of the distal radius. Tenderness to the 2nd through 4th MCP and distal metacarpals with no obvious deformities. Patient has full active and passive range of motion of her wrist in all digits. Radial pulse 2 +. Sensation intact throughout. Radial, median and ulnar nerves are intact. Cap refill less than 2 throughout. SKIN: Warm, dry, no rash. NEURO: No focal deficits. Alert and oriented x3 Course Vital Signs Vital signs: Vital Signs Temperature 97.5 F L 04/02/25 15:57 Pulse Rate 90 04/02/25 15:57 Respiratory Rate 18 04/02/25 15:57 Blood Pressure 126/83 04/02/25 15:57 Pulse Oximetry 98 04/02/25 15:57 Temperature 97.5 F L 04/02/25 15:57 Pulse Rate 90 04/02/25 15:57 Respiratory Rate 18 04/02/25 15:57 Blood Pressure 126/83 04/02/25 15:57 Pulse Oximetry 98 04/02/25 15:57 MDM - Extremity Injury (Upper) MDM Narrative Medical decision making narrative: 24-year-old female presents emergency department for right wrist and hand pain after a mechanical fall that occurred yesterday. Patient fell down 5 steps of stairs after slipping. She did not hit her head or lose consciousness. She landed with her right wrist flexed. Triage vitals are stable. Exam is significant for the above. No obvious deformities. She is neurovascularly intact. X-rays of the hand and wrist are unremarkable. Presentation consistent with strain. Patient was updated on results and placed in Dirk wrap. She was provided ibuprofen and Flexeril for pain control. Encouraged RICE follow-up with PCP. Strict ED return precautions discussed. She is agreeable with the plan verbalized understanding. Discharged in stable condition. Discharge Plan Discharge Clinical Impression: Left wrist sprain Qualifiers: Encounter type: initial encounter Wrist sprain location: unspecified location Qualified Code(s): S63.502A - Unspecified sprain of left wrist, initial encounter Patient Disposition: Home Condition: Stable Instructions: Antibiotic Form, Wrist Sprain (ED) Additional Instructions: You were evaluated in the emergency department for right wrist and hand pain. Your x-rays here reassuring. Your exam is consistent with a strain as discussed. Please rest, ice, elevate and keep your wrist and hand compressed. Take the anti-inflammatories and muscle relaxers all needed. For follow-up closely with primary care provider. Return to the emergency department if you develop any new or worsening symptoms. Patient Language: Upper Sorbian Prescriptions: New cyclobenzaprine 10 mg tablet 10 mg PO TID PRN (Reason: muscle spasm) Qty: 14 0RF ibuprofen 800 mg tablet 800 mg PO TID PRN (Reason: pain) Qty: 20 0RF No Action Nexplanon 1 device implant DAILY dicyclomine 20 mg tablet 20 mg PO QID 7 Days Qty: 28 0RF omeprazole 10 mg capsule,delayed release(DR/EC) 10 mg PO DAILY Qty: 30 0RF ondansetron 4 mg tablet,disintegrating 4 mg PO Q8H PRN (Reason: nausea and vomiting) Qty: 15 0RF Follow-up/Referrals: Lesley Morales MD [Primary Care Provider] - Stand Alone Forms: Work/School Release IP"
--- OUTSIDE RECORDS SUMMARY | 2025-04-02 15:53 | XMS_ITS | Clinical Summary ---
Author Organization [address] [address] Care Team Providers Care Nursery Manager Name Role Phone Unknown, Notinfile Primary Care Provider Unavail able Allergies Active Allergy Reactions Criticality Noted Date Comments Oseltamivir Sulfamethoxazole-Trimethoprim Hives Medium 2024 Medications No known medications Active Problems No known active problems Encounters Date Type Department Care Team Description 02/17/2025 10:15 AM CDT Office Visit [facility] at [address] [address] Kavya Fabian NP Nasopharyngitis acute (Primary Dx) from Last 3 Months Social History Tobacco Use Types Packs/Day Years Used Date Smoking Tobacco: Never Assessed Comments Unknown Sex and Gender Information Value Date Recorded Sex Assigned at Not on file Legal Sex Female 8:59 AM CDT Gender Identity Not on file Sexual Orientation Not on file Last Filed Vital Signs Vital Sign Reading Time Taken Comments Blood Pressure 118/70 02/17/2025 10:10 AM CDT Pulse 88 02/17/2025 10:10 AM CDT Temperature 36.8 C (98.3 F) 02/17/2025 10:10 AM CDT Respiratory Rate 24 02/17/2025 10:10 AM CDT Oxygen Saturation 99% 02/17/2025 10:10 AM CDT Inhaled Oxygen Concentration - - Weight 86.2 kg (190 lb) 02/17/2025 10:10 AM CDT Height - - Body Mass Index - - Plan of Treatment Health Maintenance Due Date Last Done Comments Cervical Cancer Screening 1999 Depression Screening 1999 Hepatitis C Screening 1999 HPV Vaccines (1 - 3-dose series) 2014 Regular Well Visit/Exam 18-64 2017 Influenza Vaccine (#1) 2024 9, 08/15/2013, 09/28/2010 DTaP/Tdap/Td Vaccine (8 - Td or Tdap) 02/24/2032 02/23/2022, 03/30/2011, 05/03/2005, Additional history exists Hepatitis B Screening Completed 08/08/2000 , 04/27/2000, 02/08/2000 Pneumococcal vaccine <65 Completed 2 000, 05/29/2000, 04/27/2000 Varicella Vaccines Completed 11/04/2008, 04/03/2003 Procedures Procedure Name Priority Date/Time Associated Diagnosis Comments POCT RAPID STREP Routine 02/17/2025 10:2 0 AM CDT Nasopharyngitis acute from Last 3 Months Results * POCT rapid strep A (02/17/2025 10:20 AM CDT) Rapid Strep A, POC Negative Negative Swab 02/17/2025 10:2 0 AM CDT us Kavya Fabian NP POINT OF CARE TEST ORDERABLES Final Result from Last 3 Months Care Teams Nursery Manager Relationship Specialty Start Date End Date Unknown, Notinfile PCP - General 02/17/25
--- OUTSIDE RECORDS SUMMARY | 2025-04-02 15:53 | XMS_ITS | Patient Health Record ---
Author Organization [facility] Address [address] [place] [address] Care Team Providers Care Project Management Analyst Name Role Phone Torsten Carrilloyn Primary Care Provider [phone] Allergies Allergen (clinical drug ingredient) Drug/Non Drug Allergy documented on EMR Reaction Allergy Type Onset Date Status Septra hives Drug Allergy Active oseltamivir Tamiflu hives Drug Allergy Activ e Reason For Referral No Information Medications Medication SIG (Take, Route, Fr equency, Duration) Notes Start Date End Date Status Zoloft 50 MG 1 tablet Orally Once a day for 30 day(s) Active hydrOXYzine HCl 25 MG 1 tablet as needed Orally once daily at bedtime for 30 days Act mikki Implanon 68 MG Subcutaneous Ac tive Social History Tobacco Use: Social History Observation Description Date Details (start date - stop date) Never Smoker NA - NA Dont use, Tobacco Use/Smoking Question Answer Notes Are you a nonsmoker Problems Problem Type SNOMED Code ICD Code Onset Dates Problem Status W/U Status Risk Notes Problem [id number] Mood disorder (F39) Active confirmed Problem [id number] Anxiety (F41.9) Active confirmed Plan Of Treatment No Information Insurance Providers Payer Name Payer Address Payer Phone Subscriber Number Group Number Insured Name Patient Relationship to Insured Coverage Start Date Coverage End Date [address] [phone] [id number] SonyKristiane Self - patient is the insured 5 Medical (General) History Hospitalization History Reason Date(Month/Year) anger and aggression - [facility] 10/2015
--- OUTSIDE RECORDS SUMMARY | 2025-04-02 15:53 | XMS_ITS | Referral Summary ---
Author Organization [address] [address] Care Team Providers Care Drafter Cartographic Name Role Phone Unknown, Notinfile Primary Care Provider Unavail able Encounters Date Type Department Care Team Description 02/17/2025 10:15 AM CDT Office Visit [facility] Medical [facility] Convenient Care at [address] [address] Kavya Fabian NP Nasopharyngitis acute (Primary Dx) from Last 3 Months Allergies Active Allergy Reactions Criticality Noted Date Comments Oseltamivir Sulfamethoxazole-Trimethoprim Hives Medium 2024 Medications No known medications Active Problems No known active problems Social History Tobacco Use Types Packs/Day Years [...] Mass Index - - Plan of Treatment Not on file Procedures Procedure Name Priority Date/Time Associated Diagnosis Comments POCT RAPID STREP Routine 02/17/2025 10:2 0 AM CDT Nasopharyngitis acute from Last 3 Months Results * POCT rapid strep A (02/17/2025 10:20 AM CDT) Rapid Strep A, POC Negative Negative Swab 02/17/2025 10:2 0 AM CDT Kavya Fabian NP POINT OF CARE TEST ORDERABLES Final Result from Last 3 Months Care Teams Drafter Cartographic Relationship Specialty Start Date End Date Unknown, Notinfile PCP - General 02/17/25
--- OUTSIDE RECORDS SUMMARY | 2025-04-02 15:53 | XMS_ITS | Clinical Summary ---
Author Organization [facility] Address [address] [place] [address] Care Team Providers Care Spa Director/Finance Name Role Phone Lesley Morales MD Primary Care Provider [phone] [facility],non-owned Affiliates and Associated Physician Practices is amultiple site organization consisting of ambulatory clinics and hospital sitesin [place], [place] and [place]. This disclosure is being madepursuant to the Care Everywhere program and may not contain all information available regarding this patient. Last updated 18.[facility] Allergies Active Allergy Reactions Criticality Noted Date Comments Sulfa Drugs Other High 01/04/2017 Tamiflu Unknown Medium 01/04/2017 Sulfamethoxazole W-Trimethoprim Other High 12/21 Medications * Be aware that medications may not be up to date on this document. Alwaysverify current medications with the patient. FLUoxetine (PROZAC) 20 MG capsule Take 20 mg by mouth once daily Active Estradiol Cypionate (DEPO-ESTRADIOL IM) Active Family History Medical History Relation Name Comments Congenital Heart defect Father valv e regurgitation? Arrhythmia Neg Hx CVA<55(male) Neg Hx CVA<65(female) Neg Hx Cardiomyopathy Neg Hx Heart Surgery Neg Hx Long QT Syndrome Neg Hx NH<55(male) Neg Hx NH<65(female) Neg Hx Marfan Syndrome Neg Hx Pacemaker Neg Hx Sudd. <30 Neg Hx Relation Name Status Comments Father Social History Tobacco Use Types Packs/Day Years Used Date Smoking Tobacco: Never Alcohol Use Standard Drinks/Week Comments No 0 (1 standard drink = 0.6 oz pur e alcohol) Comments Unknown Sex and Gender Information Value Date Recorded Sex Assigned at Not on file Legal Sex Female 8:04 AM BEEF SPLITTER Gender Identity Not on file Sexual Orientation Not on file Last Filed Vital Signs Vital Sign Reading Time Taken Comments Blood Pressure 120/68 01/06/2017 10:35 AM BEEF SPLITTER Pulse 80 01/06/2017 10:35 AM BEEF SPLITTER Temperature 36.6 C (97.9 F) 01/04/2017 8:50 PM BEEF SPLITTER Respiratory Rate 16 01/06/2017 10:3 5 AM BEEF SPLITTER Oxygen Saturation 97% 01/06/2017 10: 35 AM BEEF SPLITTER Inhaled Oxygen Concentration - - Weight 80.7 kg (177 lb 14.6 oz) 017 10:35 AM BEEF SPLITTER Height 163.5 cm (5' 4.37 ) 01/06/2017 1 0:35 AM BEEF SPLITTER Body Mass Index 30.19 01/06/2017 10:35 AM BEEF SPLITTER Plan of Treatment Health Maintenance Due Date Last Done Comments HIV SCREENING 2014 HPV VACCINE (1 - 3-dose series) 2014 CHLAMYDIA/GONORRHEA SCREENING 2015 HEPATITIS C SCREENING 07/24/2017 DTAP/TDAP/TD VACCINES (1 - Tdap) 2018 HEPATITIS B VACCINE (1 of 3 - 19+ 3-dose series) 2018 COVID-19 VACCINE (1 - 2023-2 5 season) 2024 DEPRESSION SCREENING 11/20/2024 INFLUENZA VACCINE (Season Ended) 2025 ZOSTER VACCINE (1 of 2) 2049 HIB VACCINE Aged Out No longer eligi ble based on patient's age to complete this topic MENINGOCOCCAL (Group B) VACC INE SHARED DECISION-MAKING Aged Out No longer eligibl e based on patient's age to complete this topic MENINGOCOCCAL GROUPS A/C/Y/W VACCINE Aged Out No longer eligible b ased on patient's age to complete this topic PNEUMOCOCCAL VACCINE Aged Out No long er eligible based on patient's age to complete this topic Insurance [place] [employer] [facility] Care Teams Spa Director/Finance Relationship Specialty Start Date End Date Lesley Morales MD [address] [place] [address] PCP - General Family Medicine 01/04/17
[2025-04-02 15:57] VITALS: BP 126/83; PULSE 90; RESP 18; TEMP 36.4; O2SAT 98
[2025-04-02] MEDS: CYCLOBENZAPRINE HCL 10 MG TABLET PO (17:00)
[2025-04-02] MEDS: IBUPROFEN 400 MG TABLET 800 MG PO (17:00)
--- NOTE | 2025-04-02 17:10 | ED_ITS ---
HPI - Extremity Injury (Upper) General Chief Complaint: Extremity Injury, Upper Stated Complaint: R wrist pain, fall last noc Time Seen by Provider: 04/02/25 16:33 History of Present Illness HPI narrative: 24-year-old female presents emergency department for right wrist and right hand pain for 1 day. Patient states yesterday she slipped down 5 steps and landed with her right wrist flexed. She is reporting pain, swelling and bruising to the right wrist that radiates into the right hand. She denies hitting her head or other injuries acquired. 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 She took Tylenol this morning with mild improvement. Related Data Home Medications Medication Instructions Recorded Confirmed Last Taken Type Nexplanon 1 device implant DAILY 02/21/24 02/21/24 Unknown History Allergies Allergy/AdvReac Type Severity Reaction Status Date / Time oseltamivir Allergy Severe Hives Verified 04/02/25 16:06 sulfamethoxazole Allergy Mild Hives Verified 04/02/25 16:06 trimethoprim Allergy Mild Hives Verified 04/02/25 16:06 sulfamethizole Allergy Unknown possibly Verified 04/02/25 16:06 latex Allergy Rash Verified 04/02/25 16:06 Review of Systems Review of Systems: All systems reviewed & are unremarkable except as noted in HPI and below PMFSH Past Medical History Medical History Choledocholithiasis Obesity Leukocytosis RUQ pain Anxiety Bipolar affect, depressed IUD (intrauterine device) in place Allergic rhinitis Sciatica of right side Surgical History Surgical History Hx laparoscopic cholecystectomy 01.31.23 Family History Family History Other Family history of suicide Social History Social History Smoking status: Never smoker Alcohol intake: never Substance use: never Substance use type: does not use Lack of Transportation: No Lack of Food: Never True Current Housing: I Have Housing Concerned About Future Housing: No Difficulty Paying Gas/Electric Bills: No Difficulty Paying for Meds: No Currently Unemployed: No Education: High School Diploma/GED Difficulty w/ Childcare or Family Care: No Living arrangements: with family Occupation/Education: occupation Additional occupation/education comments: Daycare worker Gender identity (if verbalized by the patient): Female Spiritual care concerns: No Exam Narrative: GENERAL: Well-appearing, well-nourished, and in no acute distress. HEAD: Normocephalic, atraumatic. EYES: EOMI. ENT: Nares clear, no rhinorrhea or epistaxis. Mucous membranes moist. NECK/BACK: No midline cervical spinous tenderness, crepitus, step-offs or deformities CHEST: Clear to auscultation. No respiratory distress. HEART: Regular rate and rhythm. No murmur heard. Normal peripheral pulses. EXTREMITIES: RUE: Tenderness to the distal radius with no obvious deformity, overlying ecchymosis to the dorsum of the distal radius. Tenderness to the 2nd through 4th MCP and distal metacarpals with no obvious deformities. Patient has full active and passive range of motion of her wrist in all digits. Radial pu lse 2 +. Sensation intact throughout. Radial, median and ulnar nerves are intact. Cap refill less than 2 throughout. SKIN: Warm, dry, no rash. NEURO: No focal deficits. Alert and oriented x3 Course Vital Signs Vital signs: Vital Signs Temperature 97.5 F L 04/02/25 15:57 Pulse Rate 90 04/02/25 15:57 Respiratory Rate 18 04/02/25 15:57 Blood Pressure 126/83 04/02/25 15:57 Pulse Oximetry 98 04/02/25 15:57 Temperature 97.5 F L 04/02/25 15:57 Pulse Rate 90 04/02/25 15:57 Respiratory Rate 18 04/02/25 15:57 Blood Pressure 126/83 04/02/25 15:57 Pulse Oximetry 98 04/02/25 15:57 MDM - Extremity Injury (Upper) MDM Narrative Medical decision making narrative: 24-year-old female presents emergency department for right wrist and hand pain after a mechanical fall that occurred yesterday. Patient fell down 5 steps of stairs after slipping. She did not hit her head or lose consciousness. She josh ded with her right wrist flexed. Triage vitals are stable. Exam is significant for the above. No obvious deformities. She is neurovascularly intact. X-rays of the hand and wrist are unremarkable. Presentation consistent with strain. Patient was updated on results and placed in Dirk wrap. She was provided ibuprofen and Flexeril for pain control. Encouraged RICE follow-up with PCP. Strict ED return precautions discussed. She is agreeable with the plan verbalized understanding. Discharged in stable condition. Discharge Plan Discharge Clinical Impression: Left wrist sprain Qualifiers: Encounter type: initial encounter Wrist sprain location: unspecified location Qualified Code(s): S63.502A - Unspecified sprain of left wrist, initial encounter Patient Disposition: Home Condition: Stable Instructions: Antibiotic Form, Wrist Sprain (ED) Additional Instructions: You were evaluated in the emergency department for right wrist and hand pain. Your x-rays here reassuring. Your exam is consistent with a strain as discussed. Please rest, ice, elevate and keep your wrist and hand compressed. Take the anti-inflammatories and muscle relaxers all needed. For follow-up closely with primary care provider. Return to the emergency department if you develop any new or worsening symptoms. Patient Language: Burmese Prescriptions: New cyclobenzaprine 10 mg tablet 10 mg PO TID PRN (Reason: muscle spasm) Qty: 14 0RF ibuprofen 800 mg tablet 800 mg PO TID PRN (Reason: pain) Qty: 20 0RF No Action Nexplanon 1 device implant DAILY dicyclomine 20 mg tablet 20 mg PO QID 7 Days Qty: 28 0RF omeprazole 10 mg capsule,delayed release(DR/EC) 10 mg PO DAILY Qty: 30 0RF ondansetron 4 mg tablet,disintegrating 4 mg PO Q8H PRN (Reason: nausea and vomiting) Qty: 15 0RF Follow-up/Referrals: Lesley Morales MD [Primary Care Provider] - Stand Alone Forms: Work/School Release IP
--- OUTSIDE RECORDS SUMMARY | 2025-04-02 17:23 | XMS_ITS | Referral Summary ---
Author Organization [address] [address] Care Team Providers Care Butcher Scullion Name Role Phone Unknown, Notinfile Primary Care Provider Unavail able Encounters Date Type Department Care Team Description 02/17/2025 10:15 AM CDT Office Visit [facility] Medical Group Convenient Care at [address] [address] Kavya Fabian NP Nasopharyngitis acute [...] Result from Last 3 Months Care Teams Butcher Scullion Relationship Specialty Start Date End Date Unknown, Notinfile PCP - General 02/17/25
--- OUTSIDE RECORDS SUMMARY | 2025-04-02 17:23 | XMS_ITS | Clinical Summary ---
Author Organization [address] [address] Care Team Providers Care Engineer Conductor Name Role Phone Unknown, Notinfile Primary Care Provider Unavail able Allergies Active Allergy Reactions Criticality Noted Date Comments Oseltamivir Sulfamethoxazole-Trimethoprim Hives Medium 2024 Medications No known medications Active Problems No known active problems Encounters Date Type Department Care Team Description 02/17/2025 10:15 AM CDT Office Visit [facility] Medical [facility] Convenient Care at [address] [address] Kavya Fabian NP Nasopharyngitis acute [...] Result from Last 3 Months Care Teams Engineer Conductor Relationship Specialty Start Date End Date Unknown, Notinfile PCP - General 02/17/25
--- OUTSIDE RECORDS SUMMARY | 2025-04-02 17:23 | XMS_ITS | Clinical Summary ---
Author Organization [facility] [employer] Address [address] [address] Care Team Providers Care Gis Analyst Name Role Phone Lesley Morales MD Primary Care Provider [phone] Source Comments [facility],non-owned Affiliates and Associated Physician Practices is amultiple site organization consisting of ambulatory clinics and hospital sitesin [place], [place], [place] and [place]. This disclosure is being madepursuant to the Care Everywhere program and may not contain all information available regarding this patient. Last updated 18.[facility] [employer] Allergies Active Allergy Reactions Criticality Noted Date [...] Neg Hx Long QT Syndrome Neg Hx NC<55(male) Neg Hx NC<65(female) Neg Hx Marfan Syndrome Neg Hx Pacemaker [...] on file Legal Sex Female 8:04 AM INSULATING MACHINE OPERATOR Gender Identity Not on file Sexual Orientation Not on file Last Filed Vital Signs Vital Sign Reading Time Taken Comments Blood Pressure 120/68 01/06/2017 10:35 AM INSULATING MACHINE OPERATOR Pulse 80 01/06/2017 10:35 AM INSULATING MACHINE OPERATOR Temperature 36.6 C (97.9 F) 01/04/2017 8:50 PM INSULATING MACHINE OPERATOR Respiratory Rate 16 01/06/2017 10:3 5 AM INSULATING MACHINE OPERATOR Oxygen Saturation 97% 01/06/2017 10: 35 AM INSULATING MACHINE OPERATOR Inhaled Oxygen Concentration - - Weight 80.7 kg (177 lb 14.6 oz) 017 10:35 AM INSULATING MACHINE OPERATOR Height 163.5 cm (5' 4.37 ) 01/06/2017 1 0:35 AM INSULATING MACHINE OPERATOR Body Mass Index 30.19 01/06/2017 10:35 AM INSULATING MACHINE OPERATOR Plan of Treatment Health Maintenance Due Date [...] patient's age to complete this topic Insurance [employer] [place] [employer] [facility] Care Teams Gis Analyst Relationship Specialty Start Date End Date Lesley Morales MD [address] [place] [id number] PCP - General Family Medicine 01/04/17
== END 2025-04-02 17:28 | disposition home or self-care (01) ==
PROVIDERS: Emergency Provider Physician Assistant; PCP Family Medicine
DX: S63.501A Unspecified sprain of right wrist, initial encounter (principal); Z90.49 Acquired absence of other specified parts of digestive tract; W10.9XXA Fall (on) (from) unspecified stairs and steps, initial encounter
CPT/HCPCS: 73110; 73130; 99283; A9270